=== PATIENT | male | born 1940 | race Two or more races ===

== ENCOUNTER → 2016-08-13 | Outpatient (CLI) | payer MEDICARE ==
--- NOTE | 2016-08-13 13:10 | FL ---
EXAMINATION TYPE: FL barium enema w air contrast DATE OF EXAM: 08/13/2016 12:42 PM COMPARISON: NONE HISTORY: Anemia TECHNIQUE: An air contrast barium enema study is performed. FINDINGS: Super[facility] view of the abdomen shows overall non-obstructive bowel gas pattern. No evidence of any mass or polyp, obstructing or constricting lesion throughout the colon. Mild sigmo id colon diverticulosis without diverticulitis. Normal-appearing appendix. Appendix was filled and appeared normal. The terminal ileum was refluxed and appears within normal l imits. IMPRESSION: No significant abnormality appreciated.
== END | disposition home or self-care (01) ==
LOC: RADFLMAIN 09:35
PROVIDERS: ATTEND Family Medicine
DX: D64.9 Anemia, unspecified (principal)
CPT/HCPCS: 74280

== ENCOUNTER → 2016-10-09 | Outpatient (CLI) | payer MEDICARE ==
[2016-10-09 09:23] LABS: Blood Urea Nitrogen 19 mg/dL (9-20); Non-African American GFR(MDRD) 55 (>60 ml/min/1.73 sqM)
--- NOTE | 2016-10-09 11:31 | CT ---
EXAMINATION TYPE: CT chest w con DATE OF EXAM: 10/09/2016 10:22 AM COMPARISON: Chest x-ray 09 January 2016 HISTORY: COPD with cough CT DLP: 774 mGycm Automated exposure control for dose reduction was used. CONTRAST: CT scan of the chest is performed with IV Contrast, patient injected with 80 mL of Visipaque 320. FINDINGS: LUNGS: Some patchy density is present in the right lower lobe of the costophrenic angle which is an i nterval finding. Nodular density at the left lower lobe posterior costophrenic sulcus measures approx imately 7 mm some groundglass opacity is present in the right lower lobe greater than left. Some limi davon bronchiectasis, bronchial wall thickening is also noted at the posterior lung bases. Emphysematou s changes are more noted at the upper lobes, there is some interlobular septal pleural thickening. No endobronchial lesion, pleural or pericardial effusion MEDIASTINUM: Ascending aorta measures approximately 4.2 cm. There are dense coronary artery calcifica tions. No adenopathy. Aortic calcification also present. AORTA: Atheromatous changes are present. Ascending aorta shows a more normal caliber. OTHER: Large cortical cyst associated with the right kidney measures 7 cm. Multiple cystic foci asso ciated with the liver scattered throughout, largest within the right lobe laterally measures 5 cm. Th ere may be 15-20 cysts within the liver. Nodularity is associated with the right adrenal gland measur ing only 8 to 9 mm. IMPRESSION: Indeterminate nodule left lower lobe, abnormal density the posterior costophrenic sulcus on the right may be postinflammatory changes, follow-up recommended, there are emphysematous changes , limited bronchiectasis, interstitial lung disease. Ascending aortic aneurysm. Coronary artery disea se. Additional findings above.
== END | disposition home or self-care (01) ==
LOC: RADCTMAIN 08:34
PROVIDERS: ATTEND Family Medicine
DX: J43.9 Emphysema, unspecified (principal); J47.9 Bronchiectasis, uncomplicated; J98.4 Other disorders of lung; R91.1 Solitary pulmonary nodule; I71.2 Thoracic aortic aneurysm, without rupture; I25.10 Atherosclerotic heart disease of native coronary artery without angina pectoris
CPT/HCPCS: 82565; 84520; 71260; 36415; Q9967

== ENCOUNTER 2016-11-24 20:50 | Inpatient (IN) | payer MEDICARE ==
[2016-11-24] MEDS ORDERED: SODIUM CHLORIDE 0.9% 1,000 ML IV STA ×2 (21:21)
[2016-11-24] MEDS ORDERED: ASPIRIN 81 MG CHEW PO STA (21:21)
[2016-11-24] MEDS ORDERED: RX INFO: IV CONTRAST WAS GIVEN 1 EACH MISC MISCELLANE PRN ×2 (21:23→22:25)
[2016-11-24] MEDS ORDERED: HEPARIN SODIUM,PORCINE 5,000 UNIT/ML 1 ML VIAL IV ONE (21:37)
[2016-11-24] MEDS ORDERED: HEPARIN SODIUM,PORCINE 5,000 UNIT/ML 1 ML VIAL IV PRN (21:37)
[2016-11-24] MEDS ORDERED: NITROGLYCERIN SL TABS 0.4 MG TAB SUBLINGUAL PRN (21:37)
[2016-11-24 21:42] LABS: ALT 22 U/L (21-72); AST 27 U/L (17-59); Alkaline Phosphatase 71 U/L (38-126); Anion Gap 17 mmol/L; Blood Urea Nitrogen 22 mg/dL (9-20); Calcium 9.1 mg/dL (8.4-10.2); Carbon Dioxide 14 mmol/L (22-30); Chloride 108 mmol/L (98-107); Glucose 172 mg/dL (74-99); Magnesium 1.9 mg/dL (1.6-2.3); Non-African American GFR(MDRD) >60 (>60 ml/min/1.73 sqM); Potassium 3.9 mmol/L (3.5-5.1); Sodium 139 mmol/L (137-145); Total Bilirubin 1.2 mg/dL (0.2-1.3); Total Protein 5.7 g/dL (6.3-8.2)
[2016-11-24 21:43] LABS: Anisocytosis Marked; CH 31.6; CHCM 28.4; HCT 20.5 % (39.0-53.0); HDW 4.97; Hypochromasia Marked; MCH 32.9 pg (25.0-35.0); MCHC 28.7 g/dL (31.0-37.0); MCV 114.6 fL (80.0-100.0); Macrocytosis Marked; Mean Platelet Volume 9.3; Poikilocytosis Marked; RBC 1.79 m/uL (4.30-5.90)
[2016-11-24 21:44] LABS: HGB 5.9 gm/dL (13.0-17.5); RDW 25.8 % (11.5-15.5)
[2016-11-24] MEDS ORDERED: HEPARIN SODIUM,PORCINE/D5W PMX 25,000 UNIT in DEXTROSE/WATER 1 500ML.BAG IV SCH (21:45)
[2016-11-24 21:48] LABS: INR 1.2 (<1.1); Prothrombin Time 12.1 sec (9.0-12.0)
[2016-11-24 21:54] LABS: Add Differential Manual Differential
[2016-11-24 21:59] LABS: Band Neutrophils % 1.5 %; Manual Review Performed; Nucleated Red Blood Cells 15 /100 WBC (0-0); Polychromasia Present; Total Cells Counted 200; WBC 11.1 k/uL (3.8-10.6)
--- NOTE | 2016-11-24 22:02 | XR ---
EXAMINATION TYPE: XR chest 1V portable DATE OF EXAM: 11/24/2016 9:47 PM COMPARISON: Chest x-ray January 09, 2016. CT chest February 08, 2017. HISTORY: Chest pain and shortness of breath TECHNIQUE: 2 AP portable upright views of the chest are obtained. FINDINGS: Underlying emphysematous change is present. There is increased opacity bilateral lung bases suspicious for atelectasis and/or mild interstitial edema. No suspicious focal consolidation or pneu mothorax is seen bilaterally. The cardiac silhouette size is within normal limits. The osseous stru ctures are intact. IMPRESSION: Moderate emphysematous change without suspicious acute infiltrate.
[2016-11-24 22:03] LABS: Partial Thromboplastin Time 18.9 sec (22.0-30.0)
[2016-11-24 22:07] LABS: Creatine Kinase MB 0.5 ng/mL (0.0-2.4); Troponin I 0.023 ng/mL (0.000-0.034)
--- NOTE | 2016-11-24 22:12 | P.CRDCN ---
History of Present Illness Consult date: 11/24/16 Chief complaint: SOB History of present illness: This is a pleasant 76year old male patient with known CAD and s/p stenting of the proximal LAD in December of 2015 as well as known occluded right coronary artery presented to the hospital complaining of shortness of breath. The patient stated that the shortness of breath started about 3 months ago and it has been progressing slowly. Earlier today he was experiencing in addition to the shortness of breath chest discomfort in the mid of the chest as a pressure on the chest. At that point he decided to call ambulance and come to the hospital. The EKG showed sinus tachycardia with mild ST segment elevation in aVR and diffuse ST segment depression. The hemoglobin came in to be around 6. The patient stated that he has been noticing some black stool over the last several months. Please note that the patient is on dual antiplatelet therapy with aspirin and Plavix. Currently the patient is pain-free but he is in mild respiratory distress and he is also tachypneic. Blood transfusion is in process to be initiated. Past Medical History Past Medical History: Hyperlipidemia, Hypertension, Rheumatoid Arthritis (RA) History of Any Multi-Drug Resistant Organisms: None Reported Past Surgical History: Heart Catheterization, Heart Catheterization With Stent, Tonsillectomy Additional Past Surgical History / Comment(s): Angioplasty 20 years ago Past Anesthesia/Blood Transfusion Reactions: No Reported Reaction Past Psychological History: No Psychological Hx Reported Smoking Status: Former smoker Past Alcohol Use History: None Reported Past Drug Use History: None Reported - Past Family History Mother Family Medical History: Myocardial Infarction ([place]) Medications and Allergies Home Medications Medication Instructions Recorded Confirmed Type Aspirin EC [Ecotrin Low Dose] 81 mg PO DAILY 01/09/16 11/24/16 History Ergocalciferol (Vitamin D2) 50,000 unit PO TH 01/09/16 11/24/16 History [Drisdol] Folic Acid 1 mg PO DAILY 01/09/16 11/24/16 History Montelukast [Singulair] 10 mg PO DAILY 01/09/16 11/24/16 History Multivitamins, Thera [Multivitamin 1 tab PO DAILY 01/09/16 11/24/16 History (formulary)] Albuterol Nebulized [Ventolin 2.5 mg INHALATION RT-QID 11/24/16 11/24/16 History Nebulized] Atorvastatin [Lipitor] 80 mg PO DAILY 11/24/16 11/24/16 History Ferrous Sulfate [Feosol] 325 mg PO DAILY 11/24/16 11/24/16 History Fluticasone/Vilanterol [Breo 1 puff INHALATION RT-DAILY 11/24/16 11/24/16 History Ellipta 100-25 Mcg Inhaler] Ipratropium Nebulized [Atrovent 0.5 mg INHALATION RT-QID 11/24/16 11/24/16 History Nebulized] Ipratropium-Albuterol Nebulize 3 ml INHALATION RT-QID 11/24/16 11/24/16 History [Duoneb 0.5 mg-3 mg/3 ml Soln] buPROPion SR [Wellbutrin Sr] 150 mg PO BID 11/24/16 11/24/16 History Allergies Allergy/AdvReac Type Severity Reaction Status Date / Time No Known Allergies Allergy Verified 11/24/16 21:28 Physical Exam Vitals: Vital Signs Temp Pulse Resp BP Pulse Ox 11/24/16 21:34 24 11/24/16 20:51 97.2 F L 120 H 26 H 107/55 89 L Intake and Output 11/24/16 11/24/16 11/24/16 06:59 14:59 22:59 Other: Weight 95.254 kg Patient Weight 11/25/16 06:59 Weight 95.254 kg - Constitutional General appearance: mild distress - Respiratory Respiratory: bilateral: diminished - Cardiovascular Rhythm: regular Results 11/24/16 21:05 11/24/16 21:05 Cardiac Enzymes 11/24/16 Range/Units 21:05 AST 27 (17-59) U/L Coagulation 11/24/16 Range/Units 21:05 PT 12.1 H (9.0-12.0) sec APTT 18.9 L (22.0-30.0) sec CBC 11/24/16 Range/Units 21:05 WBC 11.1 H (3.8-10.6) k/uL RBC 1.79 L (4.30-5.90) m/uL Hgb 5.9 L* (13.0-17.5) gm/dL Hct 20.5 L (39.0-53.0) % Plt Count 68 L (150-450) k/uL Comprehensive Metabolic Panel 11/24/16 Range/Units 21:05 Sodium 139 (137-145) mmol/L Potassium 3.9 (3.5-5.1) mmol/L Chloride 108 H (98-107) mmol/L Carbon Dioxide 14 L (22-30) mmol/L BUN 22 H (9-20) mg/dL Creatinine 1.08 (0.66-1.25) mg/dL Glucose 172 H (74-99) mg/dL Calcium 9.1 (8.4-10.2) mg/dL AST 27 (17-59) U/L ALT 22 (21-72) U/L Alkaline Phosphatase 71 (38-126) U/L Total Protein 5.7 L (6.3-8.2) g/dL Albumin 3.0 L (3.5-5.0) g/dL Current Medications Generic Name Dose Route Start Last Admin Trade Name Freq PRN Reason Stop Dose Admin Aspirin 325 mg 11/25/16 09:00 Aspirin PO DAILY IDALMIS Atorvastatin Calcium 80 mg 11/25/16 09:00 Lipitor PO DAILY IDALMIS Sodium Chloride 1,000 mls @ 999 mls/hr 11/24/16 21:21 11/24/16 21:45 Saline 0.9% IV 11/24/16 22:21 999 mls/hr .Q1H1M STA Administration Sodium Chloride 1,000 mls @ 100 mls/hr 11/24/16 21:21 Saline 0.9% IV 11/25/16 07:20 .Q10H STA Miscellaneous Information 1 each 11/24/16 21:23 Rx Info: Iv Contrast Was Given MISCELLANE 11/26/16 21:23 DAILY PRN Per Protocol Nitroglycerin 0.4 mg 11/24/16 21:37 Nitrostat SUBLINGUAL Q5M PRN Chest Pain Intake and Output 11/24/16 11/24/16 11/24/16 06:59 14:59 22:59 Other: Weight 95.254 kg Patient Weight 11/25/16 06:59 Weight 95.254 kg 11/24/16 21:05 11/24/16 21:05 Assessment and Plan Plan: Assessment #1 possible upper GI bleeding #2 anemia secondary to the above #3 acute respiratory failure #4 abnormal EKG #5 known CAD as described above Plan #1 blood transfusion #2 hold dual antiplatelet therapy #3 acute coronary syndrome to be ruled out #4 at echocardiogram was Doppler #5 follow-up with the patient
--- NOTE | 2016-11-24 23:05 | ED ---
General Adult HPI - General Chief complaint: Shortness of Breath Stated complaint: syncope Time Seen by Provider: 11/24/16 21:20 Source: patient, RN notes reviewed, old records reviewed Mode of arrival: EMS Limitations: no limitations - History of Present Illness Initial comments: This is a 76-year-old male to the ER for evaluation. This patient presents for evaluation of shortness of breath is been pain in his back. Patient has significant history of heart disease. Patient also complains of noting bloody stools lately, patient states and family states patient does look pale. Patient noticed not blood or black stools. Patient: no Blood thinners aside from Plavix. Patient states this chest pain is not like his prior heart attacks. Patient does not have cough or congestion, no fevers. He does complain of shortness of breath - Related Data Home Medications Medication Instructions Recorded Confirmed Aspirin EC [Ecotrin Low Dose] 81 mg PO DAILY 01/09/16 11/24/16 Ergocalciferol (Vitamin D2) 50,000 unit PO TH 01/09/16 11/24/16 [Drisdol] Folic Acid 1 mg PO DAILY 01/09/16 11/24/16 Montelukast [Singulair] 10 mg PO DAILY 01/09/16 11/24/16 Multivitamins, Thera [Multivitamin 1 tab PO DAILY 01/09/16 11/24/16 (formulary)] Albuterol Nebulized [Ventolin 2.5 mg INHALATION RT-QID 11/24/16 11/24/16 Nebulized] Atorvastatin [Lipitor] 80 mg PO DAILY 11/24/16 11/24/16 Ferrous Sulfate [Feosol] 325 mg PO DAILY 11/24/16 11/24/16 Fluticasone/Vilanterol [Breo 1 puff INHALATION RT-DAILY 11/24/16 11/24/16 Ellipta 100-25 Mcg Inhaler] Ipratropium Nebulized [Atrovent 0.5 mg INHALATION RT-QID 11/24/16 11/24/16 Nebulized] Ipratropium-Albuterol Nebulize 3 ml INHALATION RT-QID 11/24/16 11/24/16 [Duoneb 0.5 mg-3 mg/3 ml Soln] buPROPion SR [Wellbutrin Sr] 150 mg PO BID 11/24/16 11/24/16 Previous Rx's Medication Instructions Recorded Clopidogrel [Plavix] 75 mg PO DAILY #30 tab 01/13/16 Metoprolol Succinate (ER) [Toprol 25 mg PO DAILY #30 tab.er.24h 01/13/16 XL] Allergies Allergy/AdvReac Type Severity Reaction Status Date / Time No Known Allergies Allergy Verified 11/24/16 21:28 Review of Systems ROS Statement: Those systems with pertinent positive or pertinent negative responses have been documented in the HPI. ROS Other: All systems not noted in ROS Statement are negative. Past Medical History Past Medical History: Hyperlipidemia, Hypertension, Rheumatoid Arthritis (RA) History of Any Multi-Drug Resistant Organisms: None Reported Past Surgical History: Heart Catheterization, Heart Catheterization With Stent, Tonsillectomy Additional Past Surgical History / Comment(s): Angioplasty 20 years ago Past Anesthesia/Blood Transfusion Reactions: No Reported Reaction Past Psychological History: No Psychological Hx Reported Smoking Status: Former smoker Past Alcohol Use History: None Reported Past Drug Use History: None Reported - Past Family History Mother Family Medical History: Myocardial Infarction ([place]) General Exam Limitations: no limitations General appearance: alert, anxious, lethargic, in distress Head exam: Present: atraumatic, normocephalic, normal inspection Eye exam: Present: normal appearance, PERRL, EOMI. Absent: scleral icterus, conjunctival injection, periorbital swelling ENT exam: Present: mucous membranes dry Neck exam: Present: normal inspection. Absent: tenderness, meningismus, lymphadenopathy Respiratory exam: Present: normal lung sounds bilaterally, respiratory distress , accessory muscle use, decreased breath sounds, prolonged expiratory. Absent: wheezes, rales, rhonchi, stridor Cardiovascular Exam: Present: normal rhythm, tachycardia, normal heart sounds. Absent: systolic murmur, diastolic murmur, rubs, gallop, clicks GI/Abdominal exam: Present: soft, normal bowel sounds. Absent: distended, tenderness, guarding, rebound, rigid Extremities exam: Present: normal inspection, full ROM, normal capillary refill. Absent: tenderness, pedal edema, joint swelling, calf tenderness Back exam: Present: normal inspection Neurological exam: Present: alert, oriented X3, CN II-XII intact Psychiatric exam: Present: normal affect, normal mood Skin exam: Present: warm, dry, intact, normal color. Absent: rash Course Vital Signs 11/24/16 11/24/16 20:51 21:34 Temperature 97.2 F L Pulse Rate 120 H Respiratory 26 H 24 Rate Blood Pressure 107/55 O2 Sat by Pulse 89 L Oximetry - Reevaluation(s) Reevaluation #1: 11/24/16 23:07 Patient still remains or shortness of breath and chest pain pain in his back feels not like his prior heart attack Reevaluation #2: 11/24/16 23:07 Dr. Bernardo for cardiology was in emergency room did evaluate patient EKG Findings - EKG Comments: EKG Findings:: EKG shows sinus tachycardia rate 120, IL 236, QRS 88, QTC 534, minimal T-wave depression lateral leads. repeat. EKG shows sinus tachycardia rate 114, pO2 32, QRS 90, QTC 504, no change in morphology from first EKG Medical Decision Making - Medical Decision Making 70 formality ER for evaluation. Patient in for evaluation of shortness of breath pain in his back and not feeling well, symptom management is respiratory days back pain increasing over the past day and a half. Patient found to be severely anemic with hyperacute EKG changes, cardiology evaluate the patient in emergency room, no reason for her procedure at this time. Patient does have significant history of heart disease, patient will be given transfusion to help with anemia, placed on oxygen. CTa negative for PE, patient will be admitted for GI evaluation - Lab Data Result diagrams: 11/24/16 21:05 11/24/16 21:05 Lab Results 11/24/16 11/24/16 11/24/16 Range/Units 21:05 21:05 21:05 WBC 11.1 H (3.8-10.6) k/uL RBC 1.79 L (4.30-5.90) m/uL Hgb 5.9 L* (13.0-17.5) gm/dL Hct 20.5 L (39.0-53.0) % MCV 114.6 H (80.0-100.0) fL MCH 32.9 (25.0-35.0) pg MCHC 28.7 L (31.0-37.0) g/dL RDW 25.8 H (11.5-15.5) % Plt Count 68 L (150-450) k/uL Neutrophils % (Manual) 62.5 % Band Neutrophils % 1.5 % Lymphocytes % (Manual) 36.0 % Neutrophils # (Manual) 7.1 (1.3-7.7) k/uL Lymphocytes # (Manual) 4.0 (1.0-4.8) k/uL Nucleated RBCs 15 H (0-0) /100 WBC Manual Slide Review Performed Polychromasia Present Hypochromasia Marked Poikilocytosis Marked Anisocytosis Marked Macrocytosis Marked PT (9.0-12.0) sec INR (<1.1) APTT (22.0-30.0) sec D-Dimer (<0.60) mg/L FEU Sodium 139 (137-145) mmol/L Potassium 3.9 (3.5-5.1) mmol/L Chloride 108 H (98-107) mmol/L Carbon Dioxide 14 L (22-30) mmol/L Anion Gap 17 mmol/L BUN 22 H (9-20) mg/dL Creatinine 1.08 (0.66-1.25) mg/dL Est GFR (MDRD) Af Amer >60 (>60 ml/min/1.73 sqM) Est GFR (MDRD) Non-Af >60 (>60 ml/min/1.73 sqM) Glucose 172 H (74-99) mg/dL Calcium 9.1 (8.4-10.2) mg/dL Magnesium 1.9 (1.6-2.3) mg/dL Total Bilirubin 1.2 (0.2-1.3) mg/dL AST 27 (17-59) U/L ALT 22 (21-72) U/L Alkaline Phosphatase 71 (38-126) U/L Total Creatine Kinase 25 L (55-170) U/L CK-MB (CK-2) 0.5 (0.0-2.4) ng/mL CK-MB (CK-2) Rel Index 2.0 Troponin I 0.023 (0.000-0.034) ng/mL NT-Pro-B Natriuret Pep pg/mL Total Protein 5.7 L (6.3-8.2) g/dL Albumin 3.0 L (3.5-5.0) g/dL Lipase 117 (23-300) U/L Blood Type Blood Type Recheck Antibody Screen Crossmatch Spec Expiration Date 11/24/16 11/24/1611/24/17 Range/Units 21:05 21:05 21:05 WBC (3.8-10.6) k/uL RBC (4.30-5.90) m/uL Hgb (13.0-17.5) gm/dL Hct (39.0-53.0) % MCV (80.0-100.0) fL MCH (25.0-35.0) pg MCHC (31.0-37.0) g/dL RDW (11.5-15.5) % Plt Count (150-450) k/uL Neutrophils % (Manual) % Band Neutrophils % % Lymphocytes % (Manual) % Neutrophils # (Manual) (1.3-7.7) k/uL Lymphocytes # (Manual) (1.0-4.8) k/uL Nucleated RBCs (0-0) /100 WBC Manual Slide Review Polychromasia Hypochromasia Poikilocytosis Anisocytosis Macrocytosis PT 12.1 H (9.0-12.0) sec INR 1.2 (<1.1) APTT 18.9 L (22.0-30.0) sec D-Dimer 1.46 H (<0.60) mg/L FEU Sodium (137-145) mmol/L Potassium (3.5-5.1) mmol/L Chloride (98-107) mmol/L Carbon Dioxide (22-30) mmol/L Anion Gap mmol/L BUN (9-20) mg/dL Creatinine (0.66-1.25) mg/dL Est GFR (MDRD) Af Amer (>60 ml/min/1.73 sqM) Est GFR (MDRD) Non-Af (>60 ml/min/1.73 sqM) Glucose (74-99) mg/dL Calcium (8.4-10.2) mg/dL Magnesium (1.6-2.3) mg/dL Total Bilirubin (0.2-1.3) mg/dL AST (17-59) U/L ALT (21-72) U/L Alkaline Phosphatase (38-126) U/L Total Creatine Kinase (55-170) U/L CK-MB (CK-2) (0.0-2.4) ng/mL CK-MB (CK-2) Rel Index Troponin I (0.000-0.034) ng/mL NT-Pro-B Natriuret Pep 754 pg/mL Total Protein (6.3-8.2) g/dL Albumin (3.5-5.0) g/dL Lipase (23-300) U/L Blood Type A Positive Blood Type Recheck CABO Indicated Antibody Screen NEGATIVE Crossmatch See Detail Spec Expiration Date 11/27/2016 3979 - Radiology Data Radiology results: report reviewed (Chest x-ray negative for acute disease, CT negative for PE), image reviewed Critical Care Time Critical Care Time: Yes Total Critical Care Time: 65 Disposition Clinical Impression: Symptomatic anemia, Chest pain at rest, Non-STEMI (non-ST elevated myocardial infarction) Disposition: ADMITTED IP TO THIS [facility] Condition: Serious Referrals: Mariel Burnham DO [Primary Care Provider] - 1-2 days
--- NOTE | 2016-11-24 23:28 | CT ---
EXAM: CT Angiography Chest With Intravenous Contrast CLINICAL HISTORY: Reason: Pain TECHNIQUE: Axial computed tomographic angiography images of the chest with intravenous contrast using pulmonary embolism protocol. Coronal and sagittal reformats were obtained. CTDI is 11.30 MGy and DLP is 441.90 MGy-cm This CT exam was performed using one or more of the following dose reduction techniques: automated exposure control, adjustment of the mA and/or kV according to patient size, and/or use of iterative reconstruction technique. MIP reconstructed images were created and reviewed. COMPARISON: CT chest 10/09/16 FINDINGS: Pulmonary arteries: Unremarkable. No pulmonary embolism. Aorta: Stable fusiform aneurysmal dilatation of the ascending thoracic aorta, 42 cm in diameter. Lungs: Stable small subpleural ovoid density in the posterior right upper lobe (5/57), measuring 9 mm, possibly nodular scarring. Recommend comparison with more remote priors to ensure stability. Paraseptal and centrilobular emphysema. Bibasilar dependent opacities, likely atelectasis or scarring. No consolidation. Pleural space: No pleural effusion or pneumothorax. Heart: Calcified atheromatosis of the coronary arteries. No significant pericardial effusion. Bones/joints: No acute fracture. Lymph nodes: Unremarkable. No enlarged lymph nodes. Liver: Several hypodensities in the liver, some compatible with cysts and some too small to characterize. IMPRESSION: 1. No evidence of pulmonary embolism. 2. Stable fusiform aneurysm of the ascending thoracic aorta, 4.2 cm in diameter. 3. Centrilobular and paraseptal emphysema. 4. Stable small ovoid density in the posterior left upper lobe (5/57), measuring 9 mm, possibly nodular scarring. Recommend comparison with more remote priors. If no priors, three-month follow-up CT chest could be used to ensure stability.
[2016-11-25 00:59] LABS: Glucose,Whole Blood 118 mg/dL (75-99)
[2016-11-25 03:29] LABS: Anion Gap 7 mmol/L; Blood Urea Nitrogen 23 mg/dL (9-20); Calcium 8.4 mg/dL (8.4-10.2); Carbon Dioxide 20 mmol/L (22-30); Chloride 112 mmol/L (98-107); Cholesterol <50 mg/dL (<200); Glucose 104 mg/dL (74-99); HDL Cholesterol 13 mg/dL (40-60); Non-African American GFR(MDRD) >60 (>60 ml/min/1.73 sqM); Potassium 4.1 mmol/L (3.5-5.1); Sodium 139 mmol/L (137-145); Triglycerides 167 mg/dL (<150)
[2016-11-25 04:00] LABS: Creatine Kinase MB 2.1 ng/mL (0.0-2.4)
[2016-11-25 04:06] LABS: Troponin I 0.185 ng/mL (0.000-0.034)
[2016-11-25 07:19] LABS: Anisocytosis Marked; CH 32.5; CHCM 31.2; HCT 22.8 % (39.0-53.0); HDW 5.17; HGB 7.1 gm/dL (13.0-17.5); Hypochromasia Marked; Large Platelets Flag Slight; MCH 33.2 pg (25.0-35.0); MCHC 31.1 g/dL (31.0-37.0); Macrocytosis Marked; Mean Platelet Volume 10.5; Poikilocytosis Marked; RBC 2.13 m/uL (4.30-5.90); RDW 24.6 % (11.5-15.5); WBC (Perox) 4.95
[2016-11-25 07:22] LABS: MCV 106.9 fL (80.0-100.0)
[2016-11-25 08:41] LABS: Add Differential Manual Differential
[2016-11-25 09:03] LABS: Band Neutrophils % 0.5 %; Blast Cells 1.5; Metamyelocytes % 0.5 %; Nucleated Red Blood Cells 8 /100 WBC (0-0); Total Cells Counted 200
[2016-11-25 09:04] LABS: Manual Review Performed
[2016-11-25 09:05] LABS: Polychromasia Present
[2016-11-25 09:07] LABS: Large Platelets Present
[2016-11-25] MEDS: ATORVASTATIN 80 MG TAB PO SCH (09:28)
[2016-11-25] MEDS: SODIUM CHLORIDE 0.9% 1,000 ML IV SCH ×2 (09:31→19:33)
--- NOTE | 2016-11-25 10:11 | P.CONS ---
History of Present Illness - Reason for Consult Consult date: 11/25/16 GI bleed anemia Requesting physician: Cindy Cervantes - History of Present Illness 76-year-old gentleman patient of Dr. Burnham with a past medical history of CAD status post stenting of proximal LAD December 2015 maintained on dual antiplatelet therapy aspirin Plavix, hyperlipidemia, TX, hypertension, rheumatoid arthritis, and remote nicotine cigarette dependency. Consultation requested for GI bleed anemia. Patient admitted with profound weakness fatigue loss of appetite energy shortness of breath for the last several months but exacerbated over the last month. Patient states about 4 months after his cardiac stent was placed he was advised daily iron supplementation for a possible bowel bleed. He thinks this was because his hemoglobin has been slightly lower than normal since the beginning of the year but not requiring transfusions. No history of EGD colonoscopy. He has been noticing black colored bowel movements for at least a month maybe longer sometimes once a day not very often. Denies abdominal pain fever chills. No episodes of gross hematemesis or hematochezia. No history of GI bleeding. Approximate 8 kg unintentional weight loss since December 2015. No NSAIDs or alcohol history. Admission hemoglobin 5.9. MCV 114. Platelet 68. White count 11.1. INR 1.2. BUN 22. Creatinine 1.0. Troponin 0.185. EKG reported sinus tachycardia with mild ST segment elevation and aVR and diffuse ST segment depression currently being evaluated by cardiology. Upon review of medical records hemoglobin has averaged between 10-11 range over the last year. MCV 90 range. According to the nursing staff there is questionable history if the patient has been advised to see a local buzzle buffer. No history of blood dyscrasias or malignancy. Barium enema study in July 2016 or evaluation of anemia reported no significant abnormality. Mild sigmoid colonic diverticulosis was seen with normal-appearing appendix. He has received 2 units of blood and is scheduled to receive platelet transfusion today. Platelets decreased to 32,000 today. Hemoglobin is 7.1. ET chest no evidence of PE. 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 Emphysema. Small stable ovoid density in the posterior left upper lobe 9 mm. Review of Systems Constitutional: Denies fever, chills, sweats, weight gain, or loss. HEENT: Negative for migraines, blurred vision or loss, earaches, drainage, tinnitus, oral mucosal lesions, dysphagia, or odynophagia. Cardiac: CAD. PCI stent. Hyperlipidemia. Hypertension. TX. Rheumatoid arthritis. Negative for chest pain, arrhythmias, or palpitation. Respiratory: Negative for shortness of breath, hemoptysis, cough, or sputum production. Gastrointestinal: See HPI for pertinent findings. Genitourinary: Negative for hematuria, urgency, frequency, polyuria, dysuria, or penile discharge. Musculoskeletal: Negative for muscle aches, swelling, arthritis, and arthralgias. Neurologic: Negative for stroke or TIA. Endocrine: Negative for thyroid problems. Skin: Negative for rash or itching. Psychiatric: Negative history for depression and anxiety All systems: negative (See HPI) Past Medical History Past Medical History: Hyperlipidemia, Hypertension, Myocardial Infarction (TX), Rheumatoid Arthritis (RA) Last Myocardial Infarction Date:: 1995 History of Any Multi-Drug Resistant Organisms: None Reported Past Surgical History: Heart Catheterization, Heart Catheterization With Stent, Tonsillectomy Additional Past Surgical History / Comment(s): Angioplasty 20 years ago Past Anesthesia/Blood Transfusion Reactions: No Reported Reaction Date of Last Stent Placement:: 2015 Past Psychological History: No Psychological Hx Reported Smoking Status: Former smoker Past Alcohol Use History: None Reported Past Drug Use History: None Reported - Past Family History Mother Family Medical History: Myocardial Infarction (TX) Medications and Allergies Home Medications Medication Instructions Recorded Confirmed Type Aspirin EC [Ecotrin Low Dose] 81 mg PO DAILY 01/09/16 11/24/16 History Ergocalciferol (Vitamin D2) 50,000 unit PO TH 01/09/16 11/24/16 History [Drisdol] Folic Acid 1 mg PO DAILY 01/09/16 11/24/16 History Montelukast [Singulair] 10 mg PO DAILY 01/09/16 11/24/16 History Multivitamins, Thera [Multivitamin 1 tab PO DAILY 01/09/16 11/24/16 History (formulary)] Albuterol Nebulized [Ventolin 2.5 mg INHALATION RT-QID 11/24/16 11/24/16 History Nebulized] Atorvastatin [Lipitor] 80 mg PO DAILY 11/24/16 11/24/16 History Ferrous Sulfate [Feosol] 325 mg PO DAILY 11/24/16 11/24/16 History Fluticasone/Vilanterol [Breo 1 puff INHALATION RT-DAILY 11/24/16 11/24/16 History Ellipta 100-25 Mcg Inhaler] Ipratropium Nebulized [Atrovent 0.5 mg INHALATION RT-QID 11/24/16 11/24/16 History Nebulized] Ipratropium-Albuterol Nebulize 3 ml INHALATION RT-QID 11/24/16 11/24/16 History [Duoneb 0.5 mg-3 mg/3 ml Soln] buPROPion SR [Wellbutrin Sr] 150 mg PO BID 11/24/16 11/24/16 History Allergies Allergy/AdvReac Type Severity Reaction Status Date / Time No Known Allergies Allergy Verified 11/24/16 21:28 Physical Exam Vitals: Vital Signs Temp Pulse Pulse Resp BP BP Pulse Ox 11/25/16 09:40 97.5 F L 82 22 92/47 99 11/25/16 09:30 78 19 92/47 100 11/25/16 09:22 97.8 F 76 21 84/48 99 11/25/16 09:20 79 22 73/42 11/25/16 09:10 78 26 H 99/61 96 11/25/16 09:00 80 18 99/61 96 11/25/16 08:50 97.5 F L 84 22 99/61 93 L 11/25/16 08:40 76 20 99/61 96 11/25/16 08:30 71 14 99/61 98 11/25/16 08:20 78 13 99/61 100 11/25/16 08:10 70 13 99/61 98 11/25/16 08:00 72 101 H 13 111/60 96 11/25/16 07:50 66 15 111/60 95 11/25/16 07:40 73 15 111/60 93 L 11/25/16 07:30 71 13 111/60 89 L 11/25/16 07:20 73 12 111/60 95 11/25/16 07:10 77 15 111/60 99 11/25/16 07:00 76 16 100/53 99 11/25/16 06:50 79 14 100/53 99 11/25/16 06:40 75 18 100/53 100 11/25/16 06:30 76 13 100/53 97 11/25/16 06:20 76 19 100/53 97 11/25/16 06:10 77 16 100/53 97 11/25/16 06:00 75 13 97/57 98 11/25/16 05:50 80 21 97/57 96 11/25/16 05:47 97.7 F 77 13 97/57 96 11/25/16 05:46 97.5 F L 79 20 73/42 99 11/25/16 05:40 76 13 105/58 96 11/25/16 05:30 77 13 105/58 95 11/25/16 05:20 79 13 105/58 95 11/25/16 05:10 84 17 105/58 85 L 11/25/16 05:00 83 24 91/52 95 11/25/16 04:50 82 24 91/52 95 11/25/16 04:40 83 16 91/52 96 11/25/16 04:30 84 14 91/52 95 11/25/16 04:20 85 24 91/52 96 11/25/16 04:10 84 23 91/52 98 11/25/16 04:00 98.0 F 88 101 H 18 96/56 97 11/25/16 03:59 98.0 F 85 17 91/52 96 11/25/16 03:50 86 17 96/56 95 03 03:40 92 20 96/56 96 11/25/16 03:30 97.7 F 88 17 89/51 95 03 03:20 91 14 89/51 97 11/25/16 03:10 91 16 89/51 94 L 11/25/16 03:00 90 15 95/57 95 11/25/16 02:59 97.5 F L 92 15 95/57 95 11/25/16 02:58 97.7 F 89 19 96/56 98 0317 02:50 93 17 95/57 93 L 0317 02:40 93 18 95/57 93 L 17 02:30 95 20 95/57 90 L 03/17 02:20 94 15 95/57 96 0317 02:10 96 17 95/57 95 11/25/16 02:00 99 25 H 96/56 94 L 17 01:50 103 H 32 H 96/56 93 L 17 01:47 101 H 20 11/25/16 01:40 99 26 H 96/56 96 11/25/16 01:30 103 H 25 H 96/56 94 L 11/25/16 01:20 104 H 25 H 96/56 95 11/25/16 01:10 98.2 F 105 H 22 96/56 98 11/25/16 00:27 99.3 F 105 H 20 95/56 11/24/16 23:57 99.1 F 105 H 20 89/49 11/24/16 23:47 99.1 F 107 H 20 95/52 93 L 11/24/16 23:42 98.2 F 101 H 24 96/56 98 11/24/16 23:37 100.1 F H 109 H 16 108/56 11/24/16 22:51 108 H 20 111/59 100 11/24/16 21:51 114 H 20 121/67 94 L Intake and Output 11/24/16 11/25/16 11/25/16 22:59 06:59 14:59 Intake Total 2990 565 Output Total 250 0 Balance 2740 565 Intake: IV 460 325 Sodium Chloride 0.9% 1, 460 200 000 ml @ 100 mls/hr IV . Q10H STA Rx#:[id number] platelets at 125 ml/hr 125 Amount of Fluid Infused ( 1300 ml) Oral 240 Blood Product 1230 0 Platelet Pheresis Acda2 0 Unit [id number] As-1 Unit 310 [id number] Rc As-3 Unit 310 [id number] Output: Urine 250 0 Other: Weight 97.9 kg 97.9 kg Patient Weight 11/26/16 06:59 Weight 97.9 kg General appearance: The patient is alert, oriented, in no acute distress. Appears pale HET: Head is normocephalic and atraumatic. Pupils are equal and reactive. Oropharynx is clear without lesions. Neck: Supple without lymphadenopathy. Trachea midline. Heart: S1 S2. Regular rate and rhythm. Lungs: No crackles or wheezes are heard. Abdomen: Soft, nontender, nondistended with bowel sounds. No peritoneal signs. No palpable organomegaly or masses. Extremities: Normal skin color and turgor. No cyanosis, rash, ulceration, clubbing, or edema. Radial and pedal pulses are 2/4 bilaterally. Neurological: No focal deficits. Strength and sensation are grossly intact. Results CBC & Chem 7: 11/25/16 06:21 11/25/16 03:13 Labs: Abnormal Lab Results - Last 24 Hours (Table) 11/25/16 11/25/16 11/25/16 Range/Units 00:58 03:09 03:13 RBC (4.30-5.90) m/uL Hgb (13.0-17.5) gm/dL Hct (39.0-53.0) % MCV (80.0-100.0) fL RDW (11.5-15.5) % Plt Count (150-450) k/uL Chloride (98-107) mmol/L Carbon Dioxide (22-30) mmol/L BUN (9-20) mg/dL Glucose (74-99) mg/dL POC Glucose (mg/dL) 118 H (75-99) mg/dL Total Creatine Kinase 39 L (55-170) U/L Troponin I 0.185 H* (0.000-0.034) ng/mL Triglycerides 167 H (<150) mg/dL HDL Cholesterol 13 L (40-60) mg/dL 11/25/16 11/25/16 Range/Units 03:13 06:21 RBC 2.13 L (4.30-5.90) m/uL Hgb 7.1 L (13.0-17.5) gm/dL Hct 22.8 L (39.0-53.0) % MCV 106.9 H D (80.0-100.0) fL RDW 24.6 H (11.5-15.5) % Plt Count 32 L* D (150-450) k/uL Chloride 112 H (98-107) mmol/L Carbon Dioxide 20 L (22-30) mmol/L BUN 23 H (9-20) mg/dL Glucose 104 H (74-99) mg/dL POC Glucose (mg/dL) (75-99) mg/dL Total Creatine Kinase (55-170) U/L Troponin I (0.000-0.034) ng/mL Triglycerides (<150) mg/dL HDL Cholesterol (40-60) mg/dL Comments: Barium enema report July [address] Farrell. CTA chest report reviewed by Dr. Farrell. Assessment and Plan (1) Symptomatic anemia Narrative/Plan: 76-year-old gentleman presents with symptomatic anemia shortness of breath weakness decreased appetite and weight loss for several months exacerbated over the last month suggestive of acute blood loss with black colored bowel movements for at least 1 month duration with significant drop in hemoglobin. Suspect acute on chronic GI bleed maintained on iron supplementation for several months. Status: Acute (2) Thrombocytopenia Narrative/Plan: Etiology unclear consultation for hematology requested. Status: Acute (3) Acute blood loss anemia Status: Acute (4) GI bleed Narrative/Plan: Suspected GI bleed with black colored bowel movements suggestive of upper source possible lower or combination of both. Black colored bowel movements could be secondary to possible peptic ulcer disease possible diverticular blood loss however underlying malignancy cannot be entirely excluded. Status: Acute (5) Elevated troponin Narrative/Plan: Suspect mixed match currently being evaluated by cardiology. History of coronary artery disease with PCI stent on dual antiplatelet therapy prior to admission. Status: Acute (6) Macrocytosis Status: Acute (7) Colon, diverticulosis Narrative/Plan: Per barium enema study Status: Chronic Plan: 1. Platelet transfusion today with repeat CBC this afternoon. Repeat CBC in a.m. unless patient manifests active bleeding then recommend CBC every 6 hours. Patient was advised to proceed with EGD colonoscopy on Wednesday after review of morning chemistries. Patient may require platelet transfusion prior to endoscopy pending clinical course. 2. Hematology evaluation prior to endoscopy. We'll defer to hematology for additional workup of anemia. 3. Light diet as tolerated. Continuance of aspirin and Plavix to be determined by cardiology and medicine. 4. Hemoccult stool testing requested. 5. GI prophylaxis Protonix 40 mg IV daily. 6. Hold iron supplementation for now until endoscopy is completed. The supervisor force adjustment has discussed the risks, benefits and alternative therapies for the above-mentioned procedure and for both sedation/analgesia as well as necessary blood product administration, if indicated, as they pertain to this patient. The patient has indicated understanding and acceptance of the risks and procedures discussed. Thank you for this kind referral and the opportunity to participate in the care of your patient. This consultation was discussed with Dr. Farrell. The impression and plan of care have been directed as dictated.
[2016-11-25 10:32] LABS: Troponin I 0.794 ng/mL (0.000-0.034)
[2016-11-25] MEDS: PANTOPRAZOLE 40 MG/10 ML VIAL IVP SCH (12:08)
[2016-11-25] MEDS: ASPIRIN 325 MG TAB PO SCH (12:24)
--- NOTE | 2016-11-25 12:38 | P.PN ---
Subjective Principal diagnosis: Severe anemia/acute coronary event This is a pleasant 76year old male patient with known CAD and s/p stenting of the proximal LAD in December of 2015 as well as known occluded right coronary artery presented to the hospital complaining of shortness of breath. The patient stated that the shortness of breath started about 3 months ago and it has been progressing slowly. Earlier today he was experiencing in addition to the shortness of breath chest discomfort in the mid of the chest as a pressure on the chest. At that point he decided to call ambulance and come to the hospital. The EKG showed sinus tachycardia with mild ST segment elevation in aVR and diffuse ST segment depression. The hemoglobin came in to be around 6. The patient stated that he has been noticing some black stool over the last several months. Please note that the patient is on dual antiplatelet therapy with aspirin and Plavix. On follow-up with the patient today, he is feeling better. The shortness of breath is much better. The heart rate has improved as well as. The hemoglobin is above 7 after 3 units of packed RBC. He was on aspirin and Plavix and the Plavix was stopped. GI consult has placed and the patient is in process to have endoscopy. Objective - Vital Signs Vital signs: Vital Signs Temp 97.7 F 11/25/16 12:18 Pulse 78 11/25/16 12:18 Resp 20 11/25/16 12:18 BP 84/50 11/25/16 12:18 Pulse Ox 99 11/25/16 12:18 Intake & Output 11/24/16 11/25/16 11/25/16 18:59 06:59 18:59 Intake Total 2990 1406 Output Total 250 300 Balance 2740 1106 Weight 97.9 kg 97.9 kg Intake: IV 460 875 Sodium Chloride 0.9% 1, 460 500 000 ml @ 100 mls/hr IV . Q10H STA Rx#:[id number] platelets at 125 ml/hr 375 Amount of Fluid Infused ( 1300 ml) Oral 240 Blood Product 1230 291 Platelet Pheresis Acda2 291 Unit [id number] Rc As-1 Unit 310 [id number] Rc As-3 Unit 310 [id number] Rc As-3 Unit 0 [id number] Output: Urine 250 300 - Constitutional General appearance: Present: no acute distress - Respiratory Respiratory: bilateral: CTA - Cardiovascular Rhythm: regular Heart sounds: normal: S1, S2 - Labs CBC & Chem 7: 11/25/16 06:21 11/25/16 03:13 Labs: Abnormal Lab Results - Last 24 Hours (Table) 11/25/16 11/25/16 11/25/16 Range/Units 00:58 03:09 03:13 RBC (4.30-5.90) m/uL Hgb (13.0-17.5) gm/dL Hct (39.0-53.0) % MCV (80.0-100.0) fL RDW (11.5-15.5) % Plt Count (150-450) k/uL Chloride (98-107) mmol/L Carbon Dioxide (22-30) mmol/L BUN (9-20) mg/dL Glucose (74-99) mg/dL POC Glucose (mg/dL) 118 H (75-99) mg/dL Total Creatine Kinase 39 L (55-170) U/L CK-MB (CK-2) (0.0-2.4) ng/mL Troponin I 0.185 H* (0.000-0.034) ng/mL Triglycerides 167 H (<150) mg/dL HDL Cholesterol 13 L (40-60) mg/dL 11/25/16 11/25/16 11/25/16 Range/Units 03:13 06:21 09:30 RBC 2.13 L (4.30-5.90) m/uL Hgb 7.1 L (13.0-17.5) gm/dL Hct 22.8 L (39.0-53.0) % MCV 106.9 H D (80.0-100.0) fL RDW 24.6 H (11.5-15.5) % Plt Count 32 L* D (150-450) k/uL Chloride 112 H (98-107) mmol/L Carbon Dioxide 20 L (22-30) mmol/L BUN 23 H (9-20) mg/dL Glucose 104 H (74-99) mg/dL POC Glucose (mg/dL) (75-99) mg/dL Total Creatine Kinase (55-170) U/L CK-MB (CK-2) 5.0 H* (0.0-2.4) ng/mL Troponin I 0.794 H* (0.000-0.034) ng/mL Triglycerides (<150) mg/dL HDL Cholesterol (40-60) mg/dL Assessment and Plan Plan: Assessment #1 possible upper GI bleeding #2 anemia secondary to the above #3 acute respiratory failure #4 abnormal EKG #5 known CAD as described above Plan #1 continue monitoring the hemoglobin #2 continue holding the Plavix #3 acute coronary syndrome to be ruled out #4 at echocardiogram was Doppler #5 follow-up with the patient
--- NOTE | 2016-11-25 13:55 | P.CNPUL ---
History of Present Illness Consult date: 11/25/16 Reason for consult: dyspnea, other (ICU management) Chief complaint: SOB History of present illness: 76 year old male presented to the ED complaining of shortness of breath that has been ongoing for several weeks. The patient states that it worsened over the past few days. The patient states that he has had dark tarry stools for about 6 weeks. He states his primary care physician was monitoring his hemoglobin which was slowly dropping over time. He was supposed to follow up with Dr. Sorto in the office this week. The patient states that he is a former smoker he quit one year ago. He used to smoke 1 pack per day for 45 years. He states he has never been diagnosed with asthma or COPD. However he was put on Briel and in [place] outpatient. The patient developed thrush and stopped using his inhalers. The patient also has known coronary artery disease and had stenting of the LAD in 2015. The patient does not wear oxygen at home. He is complaining of some lower abdominal pain. He denies any nausea or vomiting. He states he does take iron at home and was taking 2 tablets daily. However due to constipation he cut down to one tablet daily. In the emergency department the patient was found to have symptomatic anemia. He was given 2 units of packed red blood cells. Today in the ICU the patient continues to be hypotensive. He is also found to have thrombocytopenia. The patient is being transfused 1 unit of packed red blood cells as well as 1 pack of platelets. Review of Systems All systems: negative Past Medical History Past Medical History: Hyperlipidemia, Hypertension, Myocardial Infarction ([place]), Rheumatoid Arthritis ([place]) Last Myocardial Infarction Date:: 1995 History of Any Multi-Drug Resistant Organisms: None Reported Past Surgical History: Heart Catheterization, Heart Catheterization With Stent, Tonsillectomy Additional Past Surgical History / Comment(s): Angioplasty 20 years ago Past Anesthesia/Blood Transfusion Reactions: No Reported Reaction Date of Last Stent Placement:: 2015 Past Psychological History: No Psychological Hx Reported Smoking Status: Former smoker Past Alcohol Use History: None Reported Past Drug Use History: None Reported - Past Family History Mother Family Medical History: Myocardial Infarction ([place]) Medications and Allergies Home Medications Medication Instructions Recorded Confirmed Type Aspirin EC [Ecotrin Low Dose] 81 mg PO DAILY 01/09/16 11/24/16 History Ergocalciferol (Vitamin D2) 50,000 unit PO TH 01/09/16 11/24/16 History [Drisdol] Folic Acid 1 mg PO DAILY 01/09/16 11/24/16 History Montelukast [Singulair] 10 mg PO DAILY 01/09/16 11/24/16 History Multivitamins, Thera [Multivitamin 1 tab PO DAILY 01/09/16 11/24/16 History (formulary)] Albuterol Nebulized [Ventolin 2.5 mg INHALATION RT-QID 11/24/16 11/24/16 History Nebulized] Atorvastatin [Lipitor] 80 mg PO DAILY 11/24/16 11/24/16 History Ferrous Sulfate [Feosol] 325 mg PO DAILY 11/24/16 11/24/16 History Fluticasone/Vilanterol [Breo 1 puff INHALATION RT-DAILY 11/24/16 11/24/16 History Ellipta 100-25 Mcg Inhaler] Ipratropium Nebulized [Atrovent 0.5 mg INHALATION RT-QID 11/24/16 11/24/16 History Nebulized] Ipratropium-Albuterol Nebulize 3 ml INHALATION RT-QID 11/24/16 11/24/16 History [Duoneb 0.5 mg-3 mg/3 ml Soln] buPROPion SR [Wellbutrin Sr] 150 mg PO BID 11/24/16 11/24/16 History Allergies Allergy/AdvReac Type Severity Reaction Status Date / Time No Known Allergies Allergy Verified 11/24/16 21:28 Physical Exam Osteopathic Statement: *. No significant issues noted on an osteopathic structural exam other than those noted in the History and Physical/Consult. Vitals: Vital Signs Temp Pulse Pulse Resp BP BP Pulse Ox 11/25/16 13:20 79 31 H 100/59 98 11/25/16 13:10 87 16 82/57 99 11/25/16 13:00 74 19 90/56 98 11/25/16 12:50 81 27 H 84/52 99 11/25/16 12:40 56 L 15 93/46 91 L 11/25/16 12:39 97.4 F L 71 20 93/46 99 11/25/16 12:30 77 16 84/50 99 11/25/16 12:29 85 24 84/50 98 11/25/16 12:18 97.7 F 78 20 84/50 99 11/25/16 12:10 84 23 98/56 99 11/25/16 12:07 97.4 F L 80 20 98/56 99 11/25/16 12:06 97.4 F L 80 22 98/56 11/25/16 12:00 97.4 F L 70 101 H 18 98/56 95 11/25/16 11:50 84 13 98/56 97 11/25/16 11:40 80 31 H 98/56 99 11/25/16 11:30 75 21 98/56 99 11/25/16 11:20 97.6 F 75 20 82/54 97 11/25/16 11:10 79 82/54 98 11/25/16 11:00 81 82/54 96 11/25/16 10:50 73 84/50 98 11/25/16 10:40 86 84/50 97 11/25/16 10:30 73 84/50 99 11/25/16 10:20 77 84/50 98 11/25/16 10:10 77 84/50 100 11/25/16 10:07 77 84/50 100 11/25/16 09:50 77 20 84/50 99 11/25/16 09:40 97.5 F L 57 L 17 92/47 100 11/25/16 09:30 78 19 92/47 100 11/25/16 09:22 97.8 F 76 21 84/48 99 11/25/16 09:20 79 22 73/42 11/25/16 09:10 78 26 H 99/61 96 11/25/16 09:00 80 18 99/61 96 11/25/16 08:50 97.5 F L 84 22 99/61 93 L 11/25/16 08:40 76 20 99/61 96 11/25/16 08:30 71 14 99/61 98 11/25/16 08:20 78 13 99/61 100 11/25/16 08:10 70 13 99/61 98 11/25/16 08:00 72 101 H 13 111/60 96 11/25/16 07:50 66 15 111/60 95 03 07:40 73 15 111/60 93 L 11/25/16 07:30 71 13 111/60 89 L 11/25/16 07:20 73 12 111/60 95 05/03/17 07:10 77 15 111/60 99 05/03/17 07:00 76 16 100/53 99 05/03/17 06:50 79 14 100/53 99 05/03/17 06:40 75 18 100/53 100 05/03/17 06:30 76 13 100/53 97 05/03/17 06:20 76 19 100/53 97 05/03/17 06:10 77 16 100/53 97 05/03/17 06:00 75 13 97/57 98 05/03/17 05:50 80 21 97/57 96 05/03/17 05:47 97.7 F 77 13 97/57 96 05/03/17 05:46 97.5 F L 79 20 73/42 99 05/03/17 05:40 76 13 105/58 96 05/03/17 05:30 77 13 105/58 95 05/03/17 05:20 79 13 105/58 95 05/03/17 05:10 84 17 105/58 85 L 05/03/17 05:00 83 24 91/52 95 05/03/17 04:50 82 24 91/52 95 05/03/17 04:40 83 16 91/52 96 05/03/17 04:30 84 14 91/52 95 05/03/17 04:20 85 24 91/52 96 05/03/17 04:10 84 23 91/52 98 05/03/17 04:00 98.0 F 88 101 H 18 96/56 97 05/03/17 03:59 98.0 F 85 17 91/52 96 05/03/17 03:50 86 17 96/56 95 05/03/17 03:40 92 20 96/56 96 05/03/17 03:30 97.7 F 88 17 89/51 95 05/03/17 03:20 91 14 89/51 97 05/03/17 03:10 91 16 89/51 94 L 05/03/17 03:00 90 15 95/57 95 05/03/17 02:59 97.5 F L 92 15 95/57 95 05/03/17 02:58 97.7 F 89 19 96/56 98 05/03/17 02:50 93 17 95/57 93 L 05/03/17 02:40 93 18 95/57 93 L 05/03/17 02:30 95 20 95/57 90 L 11/25/16 02:20 94 15 95/57 96 11/25/16 02:10 96 17 95/57 95 11/25/16 02:00 99 25 H 96/56 94 L 11/25/16 01:50 103 H 32 H 96/56 93 L 11/25/16 01:47 101 H 20 11/25/16 01:40 99 26 H 96/56 96 11/25/16 01:30 103 H 25 H 96/56 94 L 11/25/16 01:20 104 H 25 H 96/56 95 11/25/16 01:10 98.2 F 105 H 22 96/56 98 11/25/16 00:27 99.3 F 105 H 20 95/56 11/24/16 23:57 99.1 F 105 H 20 89/49 11/24/16 23:47 99.1 F 107 H 20 95/52 93 L 11/24/16 23:42 98.2 F 101 H 24 96/56 98 11/24/16 23:37 100.1 F H 109 H 16 108/56 11/24/16 22:51 108 H 20 111/59 100 11/24/16 21:51 114 H 20 121/67 94 L Intake and Output 11/24/16 11/25/16 11/25/16 22:59 06:59 14:59 Intake Total 2990 1656 Output Total 250 300 Balance 2740 1356 Intake: IV 460 1125 PRBC at 150 ml/hr 150 Sodium Chloride 0.9% 1, 460 600 000 ml @ 100 mls/hr IV . Q10H STA Rx#:[id number] platelets at 125 ml/hr 375 Amount of Fluid Infused ( 1300 ml) Oral 240 Blood Product 1230 291 Platelet Pheresis Acda2 291 Unit [id number] Rc As-1 Unit 310 [id number] Rc As-3 Unit 310 [id number] Rc As-3 Unit 0 [id number] Output: Urine 250 300 Other: Weight 97.9 kg 97.9 kg Patient Weight 11/26/16 06:59 Weight 97.9 kg Gen: A+Ox3, NAD CV: RRR, s1/s2 Lungs: Diminished with scattered wheezing Abd: soft, NT/ND, +BS Ext: no edema Results - Laboratory Findings CBC and BMP: 11/25/16 06:21 11/25/16 03:13 PT/INR, D-dimer PT 12.1 sec (9.0-12.0) H 11/24/16 21:05 INR 1.2 (<1.1) 11/24/16 21:05 D-Dimer 1.46 mg/L FEU (<0.60) H 11/24/16 21:05 Abnormal lab findings: Abnormal Labs 11/25/16 11/25/16 11/25/16 00:58 03:09 03:13 RBC Hgb Hct MCV RDW Plt Count Nucleated RBCs Chloride Carbon Dioxide BUN Glucose POC Glucose (mg/dL) 118 H Total Creatine Kinase 39 L CK-MB (CK-2) Troponin I 0.185 H* Triglycerides 167 H HDL Cholesterol 13 L 11/25/16 11/25/16 11/25/16 03:13 06:21 09:30 RBC 2.13 L Hgb 7.1 L Hct 22.8 L MCV 106.9 H D RDW 24.6 H Plt Count 32 L* D Nucleated RBCs 8 H Chloride 112 H Carbon Dioxide 20 L BUN 23 H Glucose 104 H POC Glucose (mg/dL) Total Creatine Kinase CK-MB (CK-2) 5.0 H* Troponin I 0.794 H* Triglycerides HDL Cholesterol - Diagnostic Findings Chest x-ray: report reviewed, image reviewed CT scan - chest: report reviewed, image reviewed Assessment and Plan Plan: Acute hypoxic respiratory failure AECOPD Symptomatic anemia, acute blood loss Hypovolemic shock Emphysema Hx tobacco abuse Severe thrombocytopenia ASHA 9 mm nodule Suspect lower GIB Elevated troponin with hx CAD and LAD PCI NAGMA Dylipidemia O2 to maintain sat > or = to 88% Bronchodilators Pulmicort No steroids at this time due to GIB Transfuse 1 unit PRBC and 1 pack PLT today GI and cardio recs CT in 3 months to follow pulmonary nodule Smoking cessation recommended Continue IVF No anticoagulation at this time SCDs for DVT prophylaxis Consult hematology Monitor H/H GI prophylaxis Plan for possible endoscopy on Wednesday Thank you for this consultation. We will continue to follow along.
[2016-11-25] MEDS: IPRATROPIUM-ALBUTEROL 3 ML NEB INHALATION SCH ×2 (16:07→19:27)
[2016-11-25 16:29] LABS: Anisocytosis Moderate; CH 32.5; CHCM 32.2; HCT 25.9 % (39.0-53.0); HDW 5.08; HGB 8.1 gm/dL (13.0-17.5); Hypochromasia Marked; MCH 32.4 pg (25.0-35.0); MCHC 31.3 g/dL (31.0-37.0); MCV 103.7 fL (80.0-100.0); Macrocytosis Marked; Mean Platelet Volume 9.8; Poikilocytosis Marked; RDW 23.6 % (11.5-15.5); WBC (Perox) 4.61
[2016-11-25 17:01] LABS: Add Differential Manual Differential
[2016-11-25 17:13] LABS: Nucleated Red Blood Cells 4 /100 WBC (0-0)
[2016-11-25 17:14] LABS: Polychromasia Present; Stomatocytes Present; Total Cells Counted 200; WBC 4.2 k/uL (3.8-10.6)
--- NOTE | 2016-11-25 17:24 | P.HPIM ---
History of Present Illness H&P Date: 11/25/16 Chief Complaint: Worsening shortness of breath Patient is a 76-year-old male with multiple medical problems who presented to [facility] due to worsening shortness of breath he states he was able to walk on the 5 or 6 steps before he had to sit down due to severe shortness of breath, he had 1 episode of chest discomfort. Patient was also having black stools, he has been followed by Dr. Mariel Burnham, he had evidence of anemia and low platelet counts he was referred to Dr. Sorto, who saw him once as outpatient. Patient also has known history of coronary artery disease and had previous angioplasty with stent placement he is maintained on aspirin and Plavix as outpatient. Hemoglobin on presentation was down to 5.9, patient was admitted to intensive care unit, red blood cell transfusion was requested Consultation for gastroenterology, critical care, cardiology and hematology were initiated. Past Medical History Past Medical History: Hyperlipidemia, Hypertension, Myocardial Infarction ([place]), Rheumatoid Arthritis ([place]) Last Myocardial Infarction Date:: 1995 History of Any Multi-Drug Resistant Organisms: None Reported Past Surgical History: Heart Catheterization, Heart Catheterization With Stent, Tonsillectomy Additional Past Surgical History / Comment(s): Angioplasty 20 years ago Past Anesthesia/Blood Transfusion Reactions: No Reported Reaction Date of Last Stent Placement:: 2015 Past Psychological History: No Psychological Hx Reported Smoking Status: Former smoker Past Alcohol Use History: None Reported Past Drug Use History: None Reported - Past Family History Mother Family Medical History: Myocardial Infarction ([place]) Medications and Allergies Home Medications Medication Instructions Recorded Confirmed Type Aspirin EC [Ecotrin Low Dose] 81 mg PO DAILY 01/09/16 11/24/16 History Ergocalciferol (Vitamin D2) 50,000 unit PO TH 01/09/16 11/24/16 History [Drisdol] Folic Acid 1 mg PO DAILY 01/09/16 11/24/16 History Montelukast [Singulair] 10 mg PO DAILY 01/09/16 11/24/16 History Multivitamins, Thera [Multivitamin 1 tab PO DAILY 01/09/16 11/24/16 History (formulary)] Albuterol Nebulized [Ventolin 2.5 mg INHALATION RT-QID 11/24/16 11/24/16 History Nebulized] Atorvastatin [Lipitor] 80 mg PO DAILY 11/24/16 11/24/16 History Ferrous Sulfate [Feosol] 325 mg PO DAILY 11/24/16 11/24/16 History Fluticasone/Vilanterol [Breo 1 puff INHALATION RT-DAILY 11/24/16 11/24/16 History Ellipta 100-25 Mcg Inhaler] Ipratropium Nebulized [Atrovent 0.5 mg INHALATION RT-QID 11/24/16 11/24/16 History Nebulized] Ipratropium-Albuterol Nebulize 3 ml INHALATION RT-QID 11/24/16 11/24/16 History [Duoneb 0.5 mg-3 mg/3 ml Soln] buPROPion SR [Wellbutrin Sr] 150 mg PO BID 11/24/16 11/24/16 History Allergies Allergy/AdvReac Type Severity Reaction Status Date / Time No Known Allergies Allergy Verified 11/24/16 21:28 Physical Exam Vitals: Vital Signs Temp Pulse Pulse Resp BP BP Pulse Ox 11/25/16 16:40 97.9 F 83 19 107/65 96 11/25/16 16:30 89 20 107/65 94 L 11/25/16 16:21 82 11/25/16 16:20 85 19 107/65 96 11/25/16 16:10 74 12 107/65 100 11/25/16 16:07 79 11/25/16 16:00 82 101 H 21 107/65 96 11/25/16 15:50 83 20 100/56 96 11/25/16 15:40 82 19 100/56 97 11/25/16 15:30 88 18 100/56 97 11/25/16 15:20 90 21 100/56 97 11/25/16 15:10 83 23 100/56 98 11/25/16 15:00 84 37 H 100/56 99 11/25/16 14:54 97.6 F 82 22 100/56 84 L 11/25/16 14:50 84 24 96/58 98 11/25/16 14:40 87 22 92/55 95 11/25/16 14:30 83 16 97/54 98 11/25/16 14:20 91 32 H 98/57 99 11/25/16 14:10 88 24 105/59 98 11/25/16 14:00 85 73 H 105/63 98 11/25/16 13:50 84 24 104/50 98 11/25/16 13:40 82 28 H 110/66 99 11/25/16 13:30 84 23 94/51 98 11/25/16 13:20 79 31 H 100/59 98 11/25/16 13:10 87 16 82/57 99 11/25/16 13:00 74 19 90/56 98 11/25/16 12:50 81 27 H 84/52 99 11/25/16 12:40 56 L 15 93/46 91 L 11/25/16 12:39 97.4 F L 71 20 93/46 99 11/25/16 12:30 77 16 84/50 99 11/25/16 12:29 85 24 84/50 98 11/25/16 12:18 97.7 F 78 20 84/50 99 11/25/16 12:10 84 23 98/56 99 11/25/16 12:07 97.4 F L 80 20 98/56 99 11/25/16 12:06 97.4 F L 80 22 98/56 11/25/16 12:00 97.4 F L 70 101 H 18 98/56 95 11/25/16 11:50 84 13 98/56 97 11/25/16 11:40 80 31 H 98/56 99 11/25/16 11:30 75 21 98/56 99 11/25/16 11:20 97.6 F 75 20 82/54 97 11/25/16 11:10 79 82/54 98 11/25/16 11:00 81 82/54 96 11/25/16 10:50 73 84/50 98 11/25/16 10:40 86 84/50 97 11/25/16 10:30 73 84/50 99 11/25/16 10:20 77 84/50 98 11/25/16 10:10 77 84/50 100 11/25/16 10:07 77 84/50 100 11/25/16 09:50 77 20 84/50 99 11/25/16 09:40 97.5 F L 57 L 17 92/47 100 11/25/16 09:30 78 19 92/47 100 11/25/16 09:22 97.8 F 76 21 84/48 99 11/25/16 09:20 79 22 73/42 05/03/17 09:10 78 26 H 99/61 96 05/03/17 09:00 80 18 99/61 96 05/03/17 08:50 97.5 F L 84 22 99/61 93 L 0503/17 08:40 76 20 99/61 96 0503/17 08:30 71 14 99/61 98 05/03/17 08:20 78 13 99/61 100 05/03/17 08:10 70 13 99/61 98 0503/17 08:00 72 101 H 13 111/60 96 05/03/17 07:50 66 15 111/60 95 0503/17 07:40 73 15 111/60 93 L 0503/17 07:30 71 13 111/60 89 L 0503/17 07:20 73 12 111/60 95 0503/17 07:10 77 15 111/60 99 03/17 07:00 76 16 100/53 99 05/03/17 06:50 79 14 100/53 99 0503/17 06:40 75 18 100/53 100 0503/17 06:30 76 13 100/53 97 05/03/17 06:20 76 19 100/53 97 05/03/17 06:10 77 16 100/53 97 05/03/17 06:00 75 13 97/57 98 05/03/17 05:50 80 21 97/57 96 05/03/17 05:47 97.7 F 77 13 97/57 96 05/03/17 05:46 97.5 F L 79 20 73/42 99 05/03/17 05:40 76 13 105/58 96 05/03/17 05:30 77 13 105/58 95 05/03/17 05:20 79 13 105/58 95 05/03/17 05:10 84 17 105/58 85 L 05/03/17 05:00 83 24 91/52 95 05/03/17 04:50 82 24 91/52 95 05/03/17 04:40 83 16 91/52 96 05/03/17 04:30 84 14 91/52 95 05/03/17 04:20 85 24 91/52 96 05/03/17 04:10 84 23 91/52 98 05/03/17 04:00 98.0 F 88 101 H 18 96/56 97 05/03/17 03:59 98.0 F 85 17 91/52 96 11/25/16 03:50 86 17 96/56 95 11/25/16 03:40 92 20 96/56 96 11/25/16 03:30 97.7 F 88 17 89/51 95 11/25/16 03:20 91 14 89/51 97 11/25/16 03:10 91 16 89/51 94 L 11/25/16 03:00 90 15 95/57 95 11/25/16 02:59 97.5 F L 92 15 95/57 95 11/25/16 02:58 97.7 F 89 19 96/56 98 11/25/16 02:50 93 17 95/57 93 L 11/25/16 02:40 93 18 95/57 93 L 11/25/16 02:30 95 20 95/57 90 L 11/25/16 02:20 94 15 95/57 96 11/25/16 02:10 96 17 95/57 95 11/25/16 02:00 99 25 H 96/56 94 L 11/25/16 01:50 103 H 32 H 96/56 93 L 11/25/16 01:47 101 H 20 11/25/16 01:40 99 26 H 96/56 96 11/25/16 01:30 103 H 25 H 96/56 94 L 11/25/16 01:20 104 H 25 H 96/56 95 11/25/16 01:10 98.2 F 105 H 22 96/56 98 11/25/16 00:27 99.3 F 105 H 20 95/56 11/24/16 23:57 99.1 F 105 H 20 89/49 11/24/16 23:47 99.1 F 107 H 20 95/52 93 L 11/24/16 23:42 98.2 F 101 H 24 96/56 98 11/24/16 23:37 100.1 F H 109 H 16 108/56 11/24/16 22:51 108 H 20 111/59 100 11/24/16 21:51 114 H 20 121/67 94 L Intake and Output 11/25/16 11/25/16 11/25/16 06:59 14:59 22:59 Intake Total 2990 2216 200 Output Total 250 300 300 Balance 2740 1916 -100 Intake: IV 460 1375 200 PRBC at 150 ml/hr 300 Sodium Chloride 0.9% 1, 460 700 200 000 ml @ 100 mls/hr IV . Q10H STA Rx#:[id number] platelets at 125 ml/hr 375 Amount of Fluid Infused ( 1300 ml) Oral 240 Blood Product 1230 601 Platelet Pheresis Acda2 291 Unit [id number] Rc As-1 Unit 310 [id number] Rc As-3 Unit 310 [id number] Rc As-3 Unit 310 [id number] Output: Urine 250 300 300 Other: Weight 97.9 kg 97.9 kg 97.9 kg Patient Weight 11/26/16 06:59 Weight 97.9 kg In general patient is alert and oriented 3 in no apparent distress HEENT head normocephalic and atraumatic Neck is supple no JVD no goiter no lymphadenopathy Chest is clear to auscultation no wheezing Cardiac exam reveals regular heart sounds no gallops no murmurs Abdomen is soft nontender no organomegaly Extremity exam reveals no edema no cyanosis or clubbing Skin exam reveals no rashes or ecchymoses Neurological examination reveals no gross focal deficit Results CBC & Chem 7: 11/25/16 16:13 11/25/16 03:13 Labs: Abnormal Lab Results - Last 24 Hours (Table) 11/25/16 11/25/16 11/25/16 Range/Units 00:58 03:09 03:13 RBC (4.30-5.90) m/uL Hgb (13.0-17.5) gm/dL Hct (39.0-53.0) % MCV (80.0-100.0) fL RDW (11.5-15.5) % Plt Count (150-450) k/uL Nucleated RBCs (0-0) /100 WBC Chloride (98-107) mmol/L Carbon Dioxide (22-30) mmol/L BUN (9-20) mg/dL Glucose (74-99) mg/dL POC Glucose (mg/dL) 118 H (75-99) mg/dL Total Creatine Kinase 39 L (55-170) U/L CK-MB (CK-2) (0.0-2.4) ng/mL Troponin I 0.185 H* (0.000-0.034) ng/mL Triglycerides 167 H (<150) mg/dL HDL Cholesterol 13 L (40-60) mg/dL 11/25/16 11/25/16 11/25/16 Range/Units 03:13 06:21 09:30 RBC 2.13 L (4.30-5.90) m/uL Hgb 7.1 L (13.0-17.5) gm/dL Hct 22.8 L (39.0-53.0) % MCV 106.9 H D (80.0-100.0) fL RDW 24.6 H (11.5-15.5) % Plt Count 32 L* D (150-450) k/uL Nucleated RBCs 8 H (0-0) /100 WBC Chloride 112 H (98-107) mmol/L Carbon Dioxide 20 L (22-30) mmol/L BUN 23 H (9-20) mg/dL Glucose 104 H (74-99) mg/dL POC Glucose (mg/dL) (75-99) mg/dL Total Creatine Kinase (55-170) U/L CK-MB (CK-2) 5.0 H* (0.0-2.4) ng/mL Troponin I 0.794 H* (0.000-0.034) ng/mL Triglycerides (<150) mg/dL HDL Cholesterol (40-60) mg/dL 11/25/16 Range/Units 16:13 RBC 2.50 L (4.30-5.90) m/uL Hgb 8.1 L (13.0-17.5) gm/dL Hct 25.9 L (39.0-53.0) % MCV 103.7 H (80.0-100.0) fL RDW 23.6 H (11.5-15.5) % Plt Count 52 L D (150-450) k/uL Nucleated RBCs 4 H (0-0) /100 WBC Chloride (98-107) mmol/L Carbon Dioxide (22-30) mmol/L BUN (9-20) mg/dL Glucose (74-99) mg/dL POC Glucose (mg/dL) (75-99) mg/dL Total Creatine Kinase (55-170) U/L CK-MB (CK-2) (0.0-2.4) ng/mL Troponin I (0.000-0.034) ng/mL Triglycerides (<150) mg/dL HDL Cholesterol (40-60) mg/dL Thrombosis Risk Factor Assmnt - Choose All That Apply Any of the Below Risk Factors Present?: Yes Each Risk Factor Represents 2 Points: Age 61-74 years Thrombosis Risk Factor Assessment Total Risk Factor Score: 2 Thrombosis Risk Factor Assessment Level: Low Risk Assessment and Plan Plan: #1 severe shortness of breath multifactorial, related to severe anemia, underlying history of coronary artery disease, at this time patient has received 2 units of red blood cell transfusion consultation for hematology was initiated #2 coronary artery disease with previous angioplasty and stent placement, cardiology consultation was requested patient was evaluated by Dr. Graham #3 severe anemia, patient is having black tarry stool possible upper GI bleeding also patient had chronic anemia with thrombocytopenia hematology evaluation was requested #4 underlying history of hypertension well-controlled #5 underlying history of hyperlipidemia #6 underlying history of rheumatoid arthritis Continue was current management at this time monitor closely in ICU Will follow in a.m.
[2016-11-25] MEDS: BUDESONIDE 0.5 MG/2 ML NEBU INHALATION SCH (19:27)
[2016-11-26 05:21] LABS: Anisocytosis Moderate; CH 31.9; CHCM 30.5; HCT 25.1 % (39.0-53.0); HDW 4.85; HGB 7.4 gm/dL (13.0-17.5); Hypochromasia Marked; MCH 31.7 pg (25.0-35.0); MCHC 29.5 g/dL (31.0-37.0); MCV 107.4 fL (80.0-100.0); Macrocytosis Marked; Mean Platelet Volume 9.7; Poikilocytosis Marked; RBC 2.34 m/uL (4.30-5.90); RDW 23.4 % (11.5-15.5); WBC (Perox) 2.47
[2016-11-26 05:45] LABS: Anion Gap 8 mmol/L; Calcium 8.2 mg/dL (8.4-10.2); Carbon Dioxide 18 mmol/L (22-30); Chloride 113 mmol/L (98-107); Glucose 80 mg/dL (74-99); Non-African American GFR(MDRD) >60 (>60 ml/min/1.73 sqM); Sodium 139 mmol/L (137-145); Total Bilirubin 1.1 mg/dL (0.2-1.3); Total Protein 4.5 g/dL (6.3-8.2)
[2016-11-26 05:49] LABS: Add Differential Manual Differential
[2016-11-26 05:57] LABS: ALT 25 U/L (21-72); AST 41 U/L (17-59); Alkaline Phosphatase 43 U/L (38-126); Blood Urea Nitrogen 12 mg/dL (9-20); Magnesium 1.9 mg/dL (1.6-2.3); Phosphorous 4.1 mg/dL (2.5-4.5)
[2016-11-26 05:58] LABS: Band Neutrophils % 5.5 %; Nucleated Red Blood Cells 7 /100 WBC (0-0); Total Cells Counted 200
[2016-11-26 05:59] LABS: Manual Review Performed; WBC 2.8 k/uL (3.8-10.6)
[2016-11-26 06:00] LABS: Polychromasia Present
[2016-11-26 07:20] LABS: HGB 7.5 gm/dL (13.0-17.5); RBC 2.37 m/uL (4.30-5.90); WBC (Perox) 3.1
[2016-11-26 07:21] LABS: HCT 24.9 % (39.0-53.0)
[2016-11-26 07:22] LABS: MCH 31.5 pg (25.0-35.0); MCV 105.1 fL (80.0-100.0)
[2016-11-26 07:23] LABS: CH 31.9; CHCM 31.1; HDW 4.87; RDW 23.2 % (11.5-15.5)
[2016-11-26 07:24] LABS: Mean Platelet Volume 10.8
[2016-11-26] MEDS ORDERED: Magnesium Replacement Protocol 1 EACH MISC MISCELLANE PRN (07:28)
[2016-11-26] MEDS: IPRATROPIUM-ALBUTEROL 3 ML NEB INHALATION SCH ×4 (07:40→19:48)
[2016-11-26] MEDS: BUDESONIDE 0.5 MG/2 ML NEBU INHALATION SCH ×2 (07:40→19:48)
[2016-11-26 07:53] LABS: Add Differential Manual Differential
[2016-11-26 08:01] LABS: Blast Cells 1.5; Metamyelocytes % 0.5 %; Myelocytes % 1.5 %; Nucleated Red Blood Cells 9 /100 WBC (0-0); Total Cells Counted 200
[2016-11-26 08:07] LABS: Manual Review Performed; WBC 3.1 k/uL (3.8-10.6)
[2016-11-26 08:08] LABS: Polychromasia Present
[2016-11-26] MEDS: SODIUM CHLORIDE 0.9% 1,000 ML IV SCH ×3 (08:20→20:51)
[2016-11-26] MEDS: ATORVASTATIN 80 MG TAB PO SCH (08:20)
[2016-11-26] MEDS: MAGNESIUM SULFATE-D5W PMX 1 GM in DEXTROSE/WATER 1 100ML.BAG IVPB SCH ×2 (08:20→10:50)
[2016-11-26] MEDS: PANTOPRAZOLE 40 MG/10 ML VIAL IVP SCH (08:20)
[2016-11-26] MEDS: ASPIRIN 325 MG TAB PO SCH (08:20)
--- NOTE | 2016-11-26 09:33 | P.PN ---
Subjective Principal diagnosis: Severe anemia/acute coronary event This is a pleasant 76year old male patient with known CAD and s/p stenting of the proximal LAD in December of 2015 as well as known occluded right coronary artery presented to the hospital complaining of shortness of breath. The patient stated that the shortness of breath started about 3 months ago and it has been progressing slowly. Earlier today he was experiencing in addition to the shortness of breath chest discomfort in the mid of the chest as a pressure on the chest. At that point he decided to call ambulance and come to the hospital. The EKG showed sinus tachycardia with mild ST segment elevation in aVR and diffuse ST segment depression. The hemoglobin came in to be around 6. The patient stated that he has been noticing some black stool over the last several months. Please note that the patient is on dual antiplatelet therapy with aspirin and Plavix. On follow-up with the patient today, he is feeling better. The shortness of breath is much better. The heart rate has improved as well as. The hemoglobin is above 7 after 3 units of packed RBC. He was on aspirin and Plavix and the Plavix was stopped. GI consult has placed and the patient is in process to have endoscopy. Objective - Vital Signs Vital signs: Vital Signs Temp 97.7 F 11/26/16 07:10 Pulse 84 11/26/16 08:00 Resp 25 H 11/26/16 08:00 BP 108/74 11/26/16 08:00 Pulse Ox 94 L 11/26/16 08:00 Intake & Output 11/25/16 11/26/16 11/26/16 18:59 06:59 18:59 Intake Total 2616 1340 100 Output Total 900 950 Balance 1716 390 100 Weight 97.9 kg 99.6 kg 99.6 kg Intake: IV 1775 1100 100 PRBC at 150 ml/hr 300 Sodium Chloride 0.9% 1, 100 000 ml @ 100 mls/hr IV . Q10H [facility] Rx#:[id number] Sodium Chloride 0.9% 1, 1100 1100 000 ml @ 100 mls/hr IV . Q10H STA Rx#:[id number] platelets at 125 ml/hr 375 Oral 240 240 Blood Product 601 Platelet Pheresis Acda2 291 Unit [id number] Rc As-3 Unit 310 [id number] Output: Urine 900 950 Other: Voiding Method Urinal Urinal - Constitutional General appearance: Present: no acute distress - Respiratory Respiratory: bilateral: CTA - Cardiovascular Rhythm: regular Heart sounds: normal: S1, S2 - Labs CBC & Chem 7: 11/26/16 04:26 11/26/16 04:26 Labs: Abnormal Lab Results - Last 24 Hours (Table) 11/25/16 11/25/16 11/25/16 Range/Units 06:21 09:30 16:13 WBC (3.8-10.6) k/uL RBC 2.13 L 2.50 L (4.30-5.90) m/uL Hgb 7.1 L 8.1 L (13.0-17.5) gm/dL Hct 22.8 L 25.9 L (39.0-53.0) % MCV 106.9 H D 103.7 H (80.0-100.0) fL MCHC (31.0-37.0) g/dL RDW 24.6 H 23.6 H (11.5-15.5) % Plt Count 32 L* D 52 L D (150-450) k/uL Nucleated RBCs 8 H 4 H (0-0) /100 WBC Chloride (98-107) mmol/L Carbon Dioxide (22-30) mmol/L Calcium (8.4-10.2) mg/dL CK-MB (CK-2) 5.0 H* (0.0-2.4) ng/mL Troponin I 0.794 H* (0.000-0.034) ng/mL Total Protein (6.3-8.2) g/dL Albumin (3.5-5.0) g/dL 11/25/16 11/26/16 11/26/16 Range/Units 22:11 04:26 04:26 WBC 3.1 L 2.8 L (3.8-10.6) k/uL RBC 2.37 L 2.34 L (4.30-5.90) m/uL Hgb 7.5 L 7.4 L (13.0-17.5) gm/dL Hct 24.9 L 25.1 L (39.0-53.0) % MCV 105.1 H 107.4 H (80.0-100.0) fL MCHC 30.0 L 29.5 L (31.0-37.0) g/dL RDW 23.2 H 23.4 H (11.5-15.5) % Plt Count 57 L 60 L (150-450) k/uL Nucleated RBCs 9 H 7 H (0-0) /100 WBC Chloride 113 H (98-107) mmol/L Carbon Dioxide 18 L (22-30) mmol/L Calcium 8.2 L (8.4-10.2) mg/dL CK-MB (CK-2) (0.0-2.4) ng/mL Troponin I (0.000-0.034) ng/mL Total Protein 4.5 L (6.3-8.2) g/dL Albumin 2.2 L (3.5-5.0) g/dL Assessment and Plan Plan: Assessment #1 possible upper GI bleeding #2 anemia secondary to the above #3 acute respiratory failure #4 abnormal EKG #5 known CAD as described above Plan #1 continue monitoring the hemoglobin #2 continue holding the Plavix #3 acute coronary syndrome to be ruled out #4 at echocardiogram was Doppler #5 follow-up with the patient
--- NOTE | 2016-11-26 10:51 | ECHOF ---
Referral Reason:ACS MEASUREMENTS -------- HEIGHT: 182.9 cm WEIGHT: 99.3 kg BP: 106/69 IVSd: 1.0 cm (0.6 - 1.1) LVIDd: 4.7 cm (3.9 - 5.3) LVPWd: 1.3 cm (0.6 - 1.1) IVSs: 1.6 cm LVIDs: 3.5 cm LVPWs: 1.7 cm LAESV Index (A-L): 27.14 ml/m Ao Diam: 3.6 cm (2.0 - 3.7) AV Cusp: 2.0 cm (1.5 - 2.6) LA Diam: 3.8 cm (2.7 - 3.8) MV EXCURSION: 15.618 mm (> 18.000) MV EF SLOPE: 80 mm/s (70 - 150) EPSS: 0.7 cm MV E Ellis: 0.62 m/s MV DecT: 314 ms MV A Ellis: 0.82 m/s MV E/A Ratio: 0.76 RAP: 5.00 mmHg RVSP: 17.86 mmHg FINDINGS -------- Sinus rhythm. This was a technically good study. There is mild concentric left ventricular hypertrophy. Overall left ventricular systolic function is mildly impaired with, an EF between 45 - 50 %. Basal inferior LV wall motion is hypokinetic. The right ventricle is normal in size and function. The left atrial size is normal. The right atrium is normal in size. Aortic valve is trileaflet and is mildly thickened. Mild mitral annular calcification present. Mild mitral regurgitation is present. Mild tricuspid regurgitation present. The right ventricular systolic pressure, as measured by Doppler, is 17.86mmHg. Pulmonic valve appears structurally normal. The aortic root size is normal. The pericardium is normal. CONCLUSIONS -------- 1. Sinus rhythm. 2. Mild mitral annular calcification present. 3. Mild mitral regurgitation is present. 4. Mild tricuspid regurgitation present. 5. The right ventricular systolic pressure, as measured by Doppler, is 17.86mmHg. 6. Pulmonic valve appears structurally normal. 7. The aortic root size is normal. 8. The pericardium is normal. 9. This was a technically good study. 10. There is mild concentric left ventricular hypertrophy. 11. Overall left ventricular systolic function is mildly impaired with, an EF between 45 - 50 %. 12. Basal inferior LV wall motion is hypokinetic. 13. The right ventricle is normal in size and function. 14. The left atrial size is normal. 15. The right atrium is normal in size. 16. Aortic valve is trileaflet and is mildly thickened. EDUCATIONAL THERAPY TEACHER: Gogo Downing RDCS
--- NOTE | 2016-11-26 11:44 | P.PN ---
Subjective Principal diagnosis: anemia 76-year-old gentleman reevaluated today in regards to symptomatic anemia. Denies overt bleeding such as hematemesis hematochezia or melena. Hematology has been consulted. Case was discussed with hammer shop supervisor this morning. Plans to proceed with EGD colonoscopy tomorrow. Patient received platelets and blood transfusion upon admission. Current platelet count 60,000. Hemoglobin 7.4. White count 2.8. Resting comfortably in ICU. Denies abdominal pain no nausea or vomiting. Objective - Vital Signs Vital signs: Vital Signs Temp 97.7 F 11/26/16 07:10 Pulse 77 11/26/16 10:00 Resp 22 11/26/16 10:00 BP 112/61 11/26/16 10:00 Pulse Ox 94 L 11/26/16 10:00 Intake & Output 11/25/16 11/26/16 11/26/16 18:59 06:59 18:59 Intake Total 2616 1340 400 Output Total 900 950 900 Balance 1716 390 -500 Weight 97.9 kg 99.6 kg 99.6 kg Intake: IV 1775 1100 300 PRBC at 150 ml/hr 300 Sodium Chloride 0.9% 1, 300 000 ml @ 100 mls/hr IV . Q10H [facility] Rx#:[id number] Sodium Chloride 0.9% 1, 1100 1100 000 ml @ 100 mls/hr IV . Q10H [facility] Rx#:[id number] platelets at 125 ml/hr 375 Intake, IV Titration 100 Amount Magnesium Sulfate-D5w Pmx 100 1 gm In Dextrose/Water 1 100ml.bag @ 100 mls/hr IVPB Q1H [facility] Rx#: [id number] Oral 240 240 Blood Product 601 Platelet Pheresis Acda2 291 Unit [id number] Rc As-3 Unit 310 [id number] Output: Urine 900 950 900 Other: Voiding Method Urinal Urinal - Exam General appearance: The patient is alert, oriented, in no acute distress. HET: Head is normocephalic and atraumatic. Pupils are equal and reactive. Oropharynx is clear without lesions. Neck: Supple without lymphadenopathy. Trachea midline. Heart: S1 S2. Regular rate and rhythm. Lungs: No crackles or wheezes are heard. Abdomen: Soft, nontender, nondistended with bowel sounds. No peritoneal signs. No palpable organomegaly or masses. Extremities: Normal skin color and turgor. No cyanosis, rash, ulceration, clubbing, or edema. Radial and pedal pulses are 2/4 bilaterally. Neurological: No focal deficits. Strength and sensation are grossly intact. - Labs CBC & Chem 7: 11/26/16 04:26 11/26/16 04:26 Labs: Abnormal Lab Results - Last 24 Hours (Table) 11/25/16 11/25/16 11/25/16 Range/Units 06:21 16:13 22:11 WBC 3.1 L (3.8-10.6) k/uL RBC 2.13 L 2.50 L 2.37 L (4.30-5.90) m/uL Hgb 7.1 L 8.1 L 7.5 L (13.0-17.5) gm/dL Hct 22.8 L 25.9 L 24.9 L (39.0-53.0) % MCV 106.9 H D 103.7 H 105.1 H (80.0-100.0) fL MCHC 30.0 L (31.0-37.0) g/dL RDW 24.6 H 23.6 H 23.2 H (11.5-15.5) % Plt Count 32 L* D 52 L D 57 L (150-450) k/uL Nucleated RBCs 8 H 4 H 9 H (0-0) /100 WBC Chloride (98-107) mmol/L Carbon Dioxide (22-30) mmol/L Calcium (8.4-10.2) mg/dL Total Protein (6.3-8.2) g/dL Albumin (3.5-5.0) g/dL 11/26/16 11/26/16 Range/Units 04:26 04:26 WBC 2.8 L (3.8-10.6) k/uL RBC 2.34 L (4.30-5.90) m/uL Hgb 7.4 L (13.0-17.5) gm/dL Hct 25.1 L (39.0-53.0) % MCV 107.4 H (80.0-100.0) fL MCHC 29.5 L (31.0-37.0) g/dL RDW 23.4 H (11.5-15.5) % Plt Count 60 L (150-450) k/uL Nucleated RBCs 7 H (0-0) /100 WBC Chloride 113 H (98-107) mmol/L Carbon Dioxide 18 L (22-30) mmol/L Calcium 8.2 L (8.4-10.2) mg/dL Total Protein 4.5 L (6.3-8.2) g/dL Albumin 2.2 L (3.5-5.0) g/dL Assessment and Plan (1) Symptomatic anemia Narrative/Plan: 76-year-old gentleman presents with symptomatic anemia shortness of breath weakness decreased appetite and weight loss for several months exacerbated over the last month suggestive of acute blood loss with black colored bowel movements for at least 1 month duration with significant drop in hemoglobin. Suspect acute on chronic GI bleed maintained on iron supplementation for several months. Status: Acute (2) Thrombocytopenia Narrative/Plan: Etiology unclear consultation for hematology requested. Status: Acute (3) Acute blood loss anemia Status: Acute (4) GI bleed Narrative/Plan: Suspected GI bleed with black colored bowel movements suggestive of upper source possible lower or combination of both. Black colored bowel movements could be secondary to possible peptic ulcer disease possible diverticular blood loss however underlying malignancy cannot be entirely excluded. Status: Acute (5) Elevated troponin Narrative/Plan: Suspect mixed match currently being evaluated by cardiology. History of coronary artery disease with PCI stent on dual antiplatelet therapy prior to admission. Status: Acute (6) Macrocytosis Status: Acute (7) Colon, diverticulosis Narrative/Plan: Per barium enema study Status: Chronic Plan: 1. EGD colonoscopy tomorrow. Nothing by mouth after midnight. 2. Continue GI prophylaxis. Assessment and plan a care discussed with Dr. Farrell
--- NOTE | 2016-11-26 12:36 | P.PN ---
Subjective This is a 76-year-old male who presented with worsening shortness of breath. He had been having black stools at home. Presented with evidence of anemia and low platelets. Hemoglobin of 5.9. Patient was admitted to the ICU. He is currently followed by GI pulmonary cardiology and hematology. Scheduled for EGD and colonoscopy tomorrow. Patient reports improvement in his shortness of breath. No bowel movement since admission. Denies any nausea vomiting. Denies any chest pain. Denies any difficulty urinating. Objective - Vital Signs Vital signs: Vital Signs Temp 97.9 F 11/26/16 12:00 Pulse 84 11/26/16 12:00 Resp 21 11/26/16 12:00 BP 114/63 11/26/16 12:00 Pulse Ox 94 L 11/26/16 12:00 Intake & Output 11/25/16 11/26/16 11/26/16 18:59 06:59 18:59 Intake Total 2616 1340 700 Output Total 900 950 900 Balance 1716 390 -200 Weight 97.9 kg 99.6 kg 99.6 kg Intake: IV 1775 1100 500 PRBC at 150 ml/hr 300 Sodium Chloride 0.9% 1, 500 000 ml @ 100 mls/hr IV . Q10H [facility] Rx#:[id number] Sodium Chloride 0.9% 1, 1100 1100 000 ml @ 100 mls/hr IV . Q10H [facility] Rx#:[id number] platelets at 125 ml/hr 375 Intake, IV Titration 200 Amount Magnesium Sulfate-D5w Pmx 200 1 gm In Dextrose/Water 1 100ml.bag @ 100 mls/hr IVPB Q1H [facility] Rx#: [id number] Oral 240 240 Blood Product 601 Platelet Pheresis Acda2 291 Unit [id number] Rc As-3 Unit 310 [id number] Output: Urine 900 950 900 Other: Voiding Method Urinal Urinal - Exam Head normocephalic Neck supple Lungs clear to auscultation bilaterally no wheezing or crackles Heart regular rate and rhythm S1-S2, no rub or gallop Abdomen is soft nontender nondistended positive bowel sounds no hepatosplenomegaly Extremities no edema Neuro alert and orientated to 3 - Labs CBC & Chem 7: 11/26/16 04:26 11/26/16 04:26 Labs: Abnormal Lab Results - Last 24 Hours (Table) 11/25/16 11/25/16 11/25/16 Range/Units 06:21 16:13 22:11 WBC 3.1 L (3.8-10.6) k/uL RBC 2.13 L 2.50 L 2.37 L (4.30-5.90) m/uL Hgb 7.1 L 8.1 L 7.5 L (13.0-17.5) gm/dL Hct 22.8 L 25.9 L 24.9 L (39.0-53.0) % MCV 106.9 H D 103.7 H 105.1 H (80.0-100.0) fL MCHC 30.0 L (31.0-37.0) g/dL RDW 24.6 H 23.6 H 23.2 H (11.5-15.5) % Plt Count 32 L* D 52 L D 57 L (150-450) k/uL Nucleated RBCs 8 H 4 H 9 H (0-0) /100 WBC Chloride (98-107) mmol/L Carbon Dioxide (22-30) mmol/L Calcium (8.4-10.2) mg/dL Total Protein (6.3-8.2) g/dL Albumin (3.5-5.0) g/dL 11/26/16 11/26/16 Range/Units 04:26 04:26 WBC 2.8 L (3.8-10.6) k/uL RBC 2.34 L (4.30-5.90) m/uL Hgb 7.4 L (13.0-17.5) gm/dL Hct 25.1 L (39.0-53.0) % MCV 107.4 H (80.0-100.0) fL MCHC 29.5 L (31.0-37.0) g/dL RDW 23.4 H (11.5-15.5) % Plt Count 60 L (150-450) k/uL Nucleated RBCs 7 H (0-0) /100 WBC Chloride 113 H (98-107) mmol/L Carbon Dioxide 18 L (22-30) mmol/L Calcium 8.2 L (8.4-10.2) mg/dL Total Protein 4.5 L (6.3-8.2) g/dL Albumin 2.2 L (3.5-5.0) g/dL Assessment and Plan Plan: #1 symptomatic anemia with possible acute GI bleed and acute blood loss anemia. Patient scheduled for EGD and colonoscopy tomorrow. Patient has received 3 units of blood. Hemoglobin 7.4 today. He's followed by both GI service and hematology. Plavix remains on hold. Continue Protonix #2 coronary artery disease with previous angioplasty and stent placement in elevated troponin. Evaluated by cardiology #3 pancytopenia: Hematology consulted. We'll await their further recommendations. Patient did receive blood transfusion and platelet transfusion during this admission #4 underlying history of hypertension well-controlled #5 underlying history of hyperlipidemia #6 underlying history of rheumatoid arthritis I performed an examination of the patient and discussed their management with the physician Ash Conveyor Operator. I have reviewed the Physician Ash Conveyor Operator's notes and agree with the documented findings and plan of care
--- NOTE | 2016-11-26 14:59 | P.PN ---
Subjective Principal diagnosis: Acute GI bleed Patient seen and examined in the ICU with nursing staff and family at bedside. The patient states he is feeling well today. His blood pressures been stable. He states he has no shortness of breath or chest pain. He has been hemodynamically stable. Objective - Vital Signs Vital signs: Vital Signs Temp 97.9 F 11/26/16 12:00 Pulse 91 11/26/16 14:00 Resp 20 11/26/16 14:00 BP 128/64 11/26/16 14:00 Pulse Ox 97 11/26/16 13:00 Intake & Output 11/25/16 11/26/16 11/26/16 18:59 06:59 18:59 Intake Total 2616 1340 800 Output Total 900 950 900 Balance 1716 390 -100 Weight 97.9 kg 99.6 kg 99.6 kg Intake: IV 1775 1100 600 PRBC at 150 ml/hr 300 Sodium Chloride 0.9% 1, 600 000 ml @ 100 mls/hr IV . Q10H [facility] Rx#:[id number] Sodium Chloride 0.9% 1, 1100 1100 000 ml @ 100 mls/hr IV . Q10H [facility] Rx#:[id number] platelets at 125 ml/hr 375 Intake, IV Titration 200 Amount Magnesium Sulfate-D5w Pmx 200 1 gm In Dextrose/Water 1 100ml.bag @ 100 mls/hr IVPB Q1H [facility] Rx#: [id number] Oral 240 240 Blood Product 601 Platelet Pheresis Acda2 291 Unit [id number] Rc As-3 Unit 310 [id number] Output: Urine 900 950 900 Other: Voiding Method Urinal Urinal - Exam Gen: A+Ox3, NAD CV: RRR, s1/s2 Lungs: Diminished with scattered wheezing Abd: soft, NT/ND, +BS Ext: no edema - Labs CBC & Chem 7: 11/26/16 04:26 11/26/16 04:26 Labs: Abnormal Lab Results - Last 24 Hours (Table) 11/25/16 11/25/16 11/26/16 Range/Units 16:13 22:11 04:26 WBC 3.1 L 2.8 L (3.8-10.6) k/uL RBC 2.50 L 2.37 L 2.34 L (4.30-5.90) m/uL Hgb 8.1 L 7.5 L 7.4 L (13.0-17.5) gm/dL Hct 25.9 L 24.9 L 25.1 L (39.0-53.0) % MCV 103.7 H 105.1 H 107.4 H (80.0-100.0) fL MCHC 30.0 L 29.5 L (31.0-37.0) g/dL RDW 23.6 H 23.2 H 23.4 H (11.5-15.5) % Plt Count 52 L D 57 L 60 L (150-450) k/uL Nucleated RBCs 4 H 9 H 7 H (0-0) /100 WBC Chloride (98-107) mmol/L Carbon Dioxide (22-30) mmol/L Calcium (8.4-10.2) mg/dL Total Protein (6.3-8.2) g/dL Albumin (3.5-5.0) g/dL 11/26/16 Range/Units 04:26 WBC (3.8-10.6) k/uL RBC (4.30-5.90) m/uL Hgb (13.0-17.5) gm/dL Hct (39.0-53.0) % MCV (80.0-100.0) fL MCHC (31.0-37.0) g/dL RDW (11.5-15.5) % Plt Count (150-450) k/uL Nucleated RBCs (0-0) /100 WBC Chloride 113 H (98-107) mmol/L Carbon Dioxide 18 L (22-30) mmol/L Calcium 8.2 L (8.4-10.2) mg/dL Total Protein 4.5 L (6.3-8.2) g/dL Albumin 2.2 L (3.5-5.0) g/dL Assessment and Plan Plan: Acute hypoxic respiratory failure AECOPD Dyspnea Symptomatic anemia, acute blood loss Hypovolemic shock Emphysema Hx tobacco abuse Severe thrombocytopenia ASHA 9 mm nodule Suspect GIB Elevated troponin with hx CAD and LAD PCI NAGMA Dylipidemia O2 to maintain sat > or = to 88% Bronchodilators Pulmicort No steroids at this time due to GIB Monitor hemoglobin and transfuse for hemoglobin less than 7 Transfuse platelets for a less than 50 GI and cardio recs CT in 3 months to follow pulmonary nodule Smoking cessation recommended Continue IVF No anticoagulation at this time SCDs for DVT prophylaxis Consult hematology Monitor H/H GI prophylaxis Plan for endoscopy tomorrow Okay to transfer out of the ICU today.
[2016-11-26] MEDS ORDERED: PEG 3350-NA SULF,BICARB,CL/KCL 4,000 ML BOTTLE PO ONE (16:00)
[2016-11-26] MEDS: LACTATED RINGERS 1,000 ML IV SCH ×2 (17:36→17:41)
--- NOTE | 2016-11-26 17:45 | P.CONS ---
History of Present Illness - Reason for Consult Consult date: 11/26/16 anemia, thrombocytopenia Requesting physician: Chelsi Santos - Chief Complaint SOB - History of Present Illness Mr. Whitehead is a pleasant male pt of PCP Dr. Burnham who was referred to for progressive anemia and seen for 1st visit about 2 weeks ago, pt had a follow up sched for review of lab results next Wednesday. Pt was noted to have a Hgb of 11.4 and WBC was 3.6 03/2016, pt had been on Methotrexate for rheumatoid arthritis for the prior 3-4 years. In 08/11 Hgb was 9.7, WBC of 3.4 so methotrexate was stopped, pt was advised to take OTC iron. 09/28/16 follow up Hgb was 9.8, WBC 3.3 and plt 77,000. The pt was thus referred here for further evaluation and recommendations. Pt had been on dual antiplatelet therapy since stent placement 12/2015 with ASA /Plavix, he had never had a colonoscopy, had a negative barium enema in early 2016. Work up was completed in the office to evaluate for chronic blood loss/iron deficiency, drug effect on marrow and paraproteinemia. Pt reported to the ER for symptoms of SOB, he was c/o fatigue, mild dizziness, denied GRIMM, chest pain, palpitations or fluttering in his chest, no nausea, vomiting, diaphoresis, abd pain or cramping, hematuria, hematochezia, melena, tarry stool or any other bleeding. Hgb was 5.8 on admit, pt has been transfused with less then expected improvement in Hgb, Review of Systems All systems: negative Constitutional: Reports as per HPI Past Medical History Past Medical History: Hyperlipidemia, Hypertension, Myocardial Infarction (DC), Rheumatoid Arthritis (RA) Last Myocardial Infarction Date:: 1995 History of Any Multi-Drug Resistant Organisms: None Reported Past Surgical History: Heart Catheterization, Heart Catheterization With Stent, Tonsillectomy Additional Past Surgical History / Comment(s): Angioplasty 20 years ago Past Anesthesia/Blood Transfusion Reactions: No Reported Reaction Date of Last Stent Placement:: 2015 Past Psychological History: No Psychological Hx Reported Smoking Status: Former smoker Past Alcohol Use History: None Reported Past Drug Use History: None Reported - Past Family History Mother Family Medical History: Myocardial Infarction (DC) Medications and Allergies Home Medications Medication Instructions Recorded Confirmed Type Aspirin EC [Ecotrin Low Dose] 81 mg PO DAILY 01/09/16 11/24/16 History Ergocalciferol (Vitamin D2) 50,000 unit PO TH 01/09/16 11/24/16 History [Drisdol] Folic Acid 1 mg PO DAILY 01/09/16 11/24/16 History Montelukast [Singulair] 10 mg PO DAILY 01/09/16 11/24/16 History Multivitamins, Thera [Multivitamin 1 tab PO DAILY 01/09/16 11/24/16 History (formulary)] Albuterol Nebulized [Ventolin 2.5 mg INHALATION RT-QID 11/24/16 11/24/16 History Nebulized] Atorvastatin [Lipitor] 80 mg PO DAILY 11/24/16 11/24/16 History Ferrous Sulfate [Feosol] 325 mg PO DAILY 11/24/16 11/24/16 History Fluticasone/Vilanterol [Breo 1 puff INHALATION RT-DAILY 11/24/16 11/24/16 History Ellipta 100-25 Mcg Inhaler] Ipratropium Nebulized [Atrovent 0.5 mg INHALATION RT-QID 11/24/16 11/24/16 History Nebulized] Ipratropium-Albuterol Nebulize 3 ml INHALATION RT-QID 11/24/16 11/24/16 History [Duoneb 0.5 mg-3 mg/3 ml Soln] buPROPion SR [Wellbutrin Sr] 150 mg PO BID 11/24/16 11/24/16 History Allergies Allergy/AdvReac Type Severity Reaction Status Date / Time No Known Allergies Allergy Verified 11/24/16 21:28 Physical Exam Vitals: Vital Signs Temp Pulse Pulse Resp BP Pulse Ox 11/26/16 16:00 79 20 124/92 96 11/26/16 15:00 124/67 11/26/16 14:00 91 20 128/64 11/26/16 13:00 92 14 135/71 97 11/26/16 12:00 97.9 F 72 84 21 114/63 94 L 11/26/16 11:00 75 19 99/70 11/26/16 10:00 77 22 112/61 94 L 11/26/16 09:00 72 18 106/60 96 11/26/16 08:00 81 84 25 H 108/74 94 L 11/26/16 07:50 85 35 H 103/67 92 L 11/26/16 07:40 79 39 H 103/67 97 11/26/16 07:30 76 17 103/67 98 11/26/16 07:20 82 30 H 103/67 98 11/26/16 07:10 97.7 F 74 12 103/67 98 11/26/16 07:00 60 26 H 103/67 96 11/26/16 06:50 91 35 H 108/62 96 11/26/16 06:40 77 26 H 108/62 95 11/26/16 06:30 76 22 108/62 96 11/26/16 06:20 70 17 108/62 94 L 11/26/16 06:10 73 22 108/62 94 L 11/26/16 06:00 83 23 108/62 95 11/26/16 05:50 72 15 105/63 93 L 11/26/16 05:40 70 17 105/63 95 11/26/16 05:30 69 16 105/63 94 L 11/26/16 05:20 67 16 105/63 95 11/26/16 05:10 66 18 105/63 95 11/26/16 05:00 81 26 H 105/63 96 11/26/16 04:50 74 25 H 103/58 96 11/26/16 04:40 71 18 103/58 96 11/26/16 04:30 77 19 103/58 95 11/26/16 04:20 69 22 103/58 96 11/26/16 04:10 71 16 103/58 94 L 11/26/16 04:00 97.8 F 68 84 18 103/58 96 11/26/16 03:50 68 19 114/63 96 11/26/16 03:40 77 17 114/63 91 L 04 03:30 72 20 114/63 90 L 11/26/16 03:20 83 16 114/63 91 L 11/26/16 03:10 92 25 H 114/63 98 11/26/16 03:00 62 19 114/63 92 L 11/26/16 02:50 66 13 99/55 98 11/26/16 02:40 65 16 99/55 95 11/26/16 02:30 65 16 99/55 95 11/26/16 02:20 70 15 99/55 94 L 11/26/16 02:10 66 11 L 99/55 94 L 11/26/16 02:00 70 16 99/55 95 11/26/16 01:50 70 23 101/63 96 11/26/16 01:40 76 18 101/63 96 11/26/16 01:30 69 19 101/63 94 L 11/26/16 01:20 101/63 94 L 11/26/16 01:10 101/63 94 L 11/26/16 01:00 74 18 101/63 93 L 11/26/16 00:50 76 18 110/59 93 L 11/26/16 00:40 75 27 H 110/59 95 11/26/16 00:30 77 16 110/59 95 11/26/16 00:20 75 14 110/59 93 L 11/26/16 00:10 77 16 110/59 91 L 11/26/16 00:00 97.8 F 61 84 18 110/59 92 L 11/25/16 23:50 75 16 104/54 92 L 11/25/16 23:42 76 14 104/54 95 11/25/16 23:40 76 19 104/54 85 L 11/25/16 23:30 76 15 104/54 94 L 11/25/16 23:20 78 12 104/54 92 L 11/25/16 23:10 78 14 104/54 93 L 11/25/16 23:00 78 18 104/54 93 L 11/25/16 22:50 79 20 109/68 93 L 11/25/16 22:40 78 14 109/68 96 11/25/16 22:30 76 18 109/68 95 11/25/16 22:20 78 17 109/68 95 11/25/16 22:10 83 25 H 109/68 96 11/25/16 22:00 78 16 109/68 99 11/25/16 21:50 80 17 106/49 96 11/25/16 21:40 82 18 106/49 97 11/25/16 21:30 88 22 106/49 93 L 11/25/16 21:20 85 17 106/49 95 11/25/16 21:10 21 106/49 92 L 11/25/16 21:00 106/49 98 11/25/16 20:50 116/59 90 L 11/25/16 20:40 87 116/59 92 L 11/25/16 20:30 86 20 116/59 90 L 11/25/16 20:20 85 11 L 116/59 93 L 11/25/16 20:10 89 17 116/59 92 L 11/25/16 20:00 97.4 F L 92 84 16 116/59 93 L 11/25/16 19:50 90 17 103/49 90 L 11/25/16 19:40 96 22 103/49 97 11/25/16 19:38 82 11/25/16 19:30 83 16 103/49 100 11/25/16 19:27 80 11/25/16 19:00 78 23 103/49 96 11/25/16 18:50 77 20 102/58 95 11/25/16 18:40 78 24 102/58 93 L 11/25/16 18:30 83 33 H 93/48 95 11/25/16 18:20 83 21 93/48 93 L 11/25/16 18:10 79 20 93/48 94 L 11/25/16 18:00 79 20 93/48 93 L 11/25/16 17:50 83 28 H 93/48 94 L 11/25/16 17:40 79 20 93/48 94 L 11/25/16 17:30 80 21 93/48 93 L 11/25/16 17:20 88 25 H 93/48 92 L 11/25/16 17:10 88 21 93/48 99 Intake and Output 11/26/16 11/26/16 11/26/16 06:59 14:59 22:59 Intake Total 700 900 300 Output Total 950 900 300 Balance -250 0 0 Intake: IV 700 700 300 Sodium Chloride 0.9% 1, 700 300 000 ml @ 100 mls/hr IV . Q10H [facility] Rx#:[id number] Sodium Chloride 0.9% 1, 700 000 ml @ 100 mls/hr IV . Q10H [facility] Rx#:[id number] Intake, IV Titration 200 Amount Magnesium Sulfate-D5w Pmx 200 1 gm In Dextrose/Water 1 100ml.bag @ 100 mls/hr IVPB Q1H [facility] Rx#: [id number] Output: Urine 950 900 300 Other: Voiding Method Urinal Urinal Weight 99.6 kg 99.6 kg Patient Weight 11/27/16 06:59 Weight 99.6 kg - Constitutional General appearance: average body habitus, no acute distress, obese - EENT Eyes: anicteric sclerae, normal appearance ENT: normal oropharynx - Neck Neck: no lymphadenopathy - Respiratory Respiratory: bilateral: CTA - Cardiovascular Rhythm: irregularly irregular Heart sounds: normal: S1, S2 leg Peripheral Edema: bilateral: Trace - Gastrointestinal General gastrointestinal: no absent bowel sounds, no decreased bowel sounds, no distended, no hepatomegaly, no hyperactive bowel sounds, normal bowel sounds, no organomegaly, no rigid, no scaphoid, soft, no splenomegaly, no tenderness, no umbilical hernia, no ventral hernia - Neurologic Neurologic: CNII-XII intact - Musculoskeletal Musculoskeletal: strength equal bilaterally - Psychiatric Psychiatric: A&O x's 3, appropriate affect, intact judgment & insight Results CBC & Chem 7: 11/26/16 04:26 11/26/16 04:26 Labs: Abnormal Lab Results - Last 24 Hours (Table) 11/25/16 11/25/16 11/26/16 Range/Units 16:13 22:11 04:26 WBC 3.1 L 2.8 L (3.8-10.6) k/uL RBC 2.50 L 2.37 L 2.34 L (4.30-5.90) m/uL Hgb 8.1 L 7.5 L 7.4 L (13.0-17.5) gm/dL Hct 25.9 L 24.9 L 25.1 L (39.0-53.0) % MCV 103.7 H 105.1 H 107.4 H (80.0-100.0) fL MCHC 30.0 L 29.5 L (31.0-37.0) g/dL RDW 23.6 H 23.2 H 23.4 H (11.5-15.5) % Plt Count 52 L D 57 L 60 L (150-450) k/uL Nucleated RBCs 4 H 9 H 7 H (0-0) /100 WBC Chloride (98-107) mmol/L Carbon Dioxide (22-30) mmol/L Calcium (8.4-10.2) mg/dL Total Protein (6.3-8.2) g/dL Albumin (3.5-5.0) g/dL 11/26/16 Range/Units 04:26 WBC (3.8-10.6) k/uL RBC (4.30-5.90) m/uL Hgb (13.0-17.5) gm/dL Hct (39.0-53.0) % MCV (80.0-100.0) fL MCHC (31.0-37.0) g/dL RDW (11.5-15.5) % Plt Count (150-450) k/uL Nucleated RBCs (0-0) /100 WBC Chloride 113 H (98-107) mmol/L Carbon Dioxide 18 L (22-30) mmol/L Calcium 8.2 L (8.4-10.2) mg/dL Total Protein 4.5 L (6.3-8.2) g/dL Albumin 2.2 L (3.5-5.0) g/dL CT scan - chest: report reviewed Assessment and Plan (1) Symptomatic anemia Status: Acute (2) Thrombocytopenia Status: Acute Plan: Dr. Sorto did discuss case with GI. Plan is to proceed with colonoscopy for anemia, also pt does not have a baseline colonoscopy. Labs from the office were reviewed, no evidence that suggests paraproteinemia or severe nutritional deficiency. Will try to get bone marrow sched for tomorrow afternoon. For now transfuse to keep Hgb >7, or to keep pt from being symptomatic.
[2016-11-27] MEDS: BUDESONIDE 0.5 MG/2 ML NEBU INHALATION SCH ×2 (08:20→20:00)
[2016-11-27] MEDS: IPRATROPIUM-ALBUTEROL 3 ML NEB INHALATION SCH ×4 (08:20→20:00)
[2016-11-27 08:46] LABS: ALT 27 U/L (21-72); AST 34 U/L (17-59); Alkaline Phosphatase 64 U/L (38-126); Anion Gap 9 mmol/L; Blood Urea Nitrogen 8 mg/dL (9-20); Calcium 7.9 mg/dL (8.4-10.2); Carbon Dioxide 19 mmol/L (22-30); Chloride 114 mmol/L (98-107); Glucose 90 mg/dL (74-99); Magnesium 2.1 mg/dL (1.6-2.3); Non-African American GFR(MDRD) >60 (>60 ml/min/1.73 sqM); Potassium 3.8 mmol/L (3.5-5.1); Sodium 142 mmol/L (137-145); Total Bilirubin 1.4 mg/dL (0.2-1.3); Total Protein 5.3 g/dL (6.3-8.2)
[2016-11-27 09:26] LABS: Anisocytosis Moderate; CHCM 30.7; HCT 29.2 % (39.0-53.0); HDW 4.86; Hypochromasia Marked; Large Platelets Flag Moderate; MCHC 30.9 g/dL (31.0-37.0); MCV 106.7 fL (80.0-100.0); Macrocytosis Marked; Mean Platelet Volume 11.3; Poikilocytosis Marked; RBC 2.73 m/uL (4.30-5.90); RDW 22.7 % (11.5-15.5); WBC (Perox) 1.94
[2016-11-27] MEDS: ATORVASTATIN 80 MG TAB PO SCH (09:56)
[2016-11-27] MEDS: PANTOPRAZOLE 40 MG/10 ML VIAL IVP SCH (09:56)
[2016-11-27 10:49] LABS: Add Differential Manual Differential
[2016-11-27 11:00] LABS: Nucleated Red Blood Cells 10 /100 WBC (0-0); Total Cells Counted 200
[2016-11-27 11:01] LABS: WBC 2.1 k/uL (3.8-10.6)
[2016-11-27 11:02] LABS: Manual Review Performed; Polychromasia Present
--- NOTE | 2016-11-27 13:07 | P.PN ---
Subjective Principal diagnosis: GIB Patient seen and examined with his at bedside. The patient states he is feeling well today. He underwent prep for endoscopy today. The plan is for endoscopy followed by bone marrow biopsy. Objective - Vital Signs Vital signs: Vital Signs Temp 97 F L 11/27/16 11:00 Pulse 77 11/27/16 11:00 Resp 20 11/27/16 11:00 BP 123/68 11/27/16 11:00 Pulse Ox 94 L 11/27/16 11:00 Intake & Output 11/26/16 11/27/16 11/27/16 18:59 06:59 18:59 Intake Total 1200 571 Output Total 1200 Balance 0 571 Weight 99.6 kg Intake: IV 1000 150 Sodium Chloride 0.9% 1, 1000 150 000 ml @ 100 mls/hr IV . Q10H [facility] Rx#:[id number] Intake, IV Titration 200 Amount Magnesium Sulfate-D5w Pmx 200 1 gm In Dextrose/Water 1 100ml.bag @ 100 mls/hr IVPB Q1H [facility] Rx#: [id number] Blood Product 421 Platelet Pheresis Acda 0 Unit [id number] Output: Urine 1200 Other: Voiding Method Urinal Toilet Urinal # Voids 2 # Bowel Movements 2 - Exam Gen: A+Ox3, NAD CV: RRR, s1/s2 Lungs: Diminished with scattered wheezing Abd: soft, NT/ND, +BS Ext: no edema - Labs CBC & Chem 7: 11/27/16 08:15 11/27/16 08:15 Labs: Abnormal Lab Results - Last 24 Hours (Table) 11/27/16 11/27/16 Range/Units 08:15 08:15 WBC 2.1 L (3.8-10.6) k/uL RBC 2.73 L (4.30-5.90) m/uL Hgb 9.0 L D (13.0-17.5) gm/dL Hct 29.2 L (39.0-53.0) % MCV 106.7 H (80.0-100.0) fL MCHC 30.9 L (31.0-37.0) g/dL RDW 22.7 H (11.5-15.5) % Plt Count 47 L* (150-450) k/uL Neutrophils # (Manual) 0.9 L (1.3-7.7) k/uL Nucleated RBCs 10 H (0-0) /100 WBC Chloride 114 H (98-107) mmol/L Carbon Dioxide 19 L (22-30) mmol/L BUN 8 L (9-20) mg/dL Calcium 7.9 L (8.4-10.2) mg/dL Total Bilirubin 1.4 H (0.2-1.3) mg/dL Total Protein 5.3 L (6.3-8.2) g/dL Albumin 2.6 L (3.5-5.0) g/dL Assessment and Plan Plan: Acute hypoxic respiratory failure, improving AECOPD Dyspnea Symptomatic anemia, acute blood loss Hypovolemic shock Emphysema Hx tobacco abuse Severe thrombocytopenia Pancytopenia ASHA 9 mm nodule Suspect GIB Elevated troponin with hx CAD and LAD PCI NAGMA Dylipidemia O2 to maintain sat > or = to 88% Bronchodilators Pulmicort No steroids at this time due to GIB Monitor hemoglobin and transfuse for hemoglobin less than 7 Transfuse platelets for a less than 50 GI and cardio recs CT in 3 months to follow pulmonary nodule Smoking cessation recommended Continue IVF No anticoagulation at this time SCDs for DVT prophylaxis Monitor H/H GI prophylaxis Plan for endoscopy and bone marrow biopsy today
[2016-11-27] MEDS ORDERED: LACTATED RINGERS 1,000 ML IV ONE (13:29)
[2016-11-27] MEDS ORDERED: GLYCOPYRROLATE 0.2 MG/ML 2 ML VIAL ONE (13:30)
[2016-11-27] MEDS ORDERED: LIDOCAINE 1% INJ 10MG/ML (20 ML MDV) ONE (13:30)
[2016-11-27] MEDS ORDERED: MIDAZOLAM 2 MG/2 ML VIAL ONE (13:30)
[2016-11-27] MEDS ORDERED: PROPOFOL 10 MG/ML 20 ML VIAL IV ONE (13:30)
[2016-11-27] MEDS ORDERED: fentaNYL (PF) 50 MCG/ML 50 ML VIAL ONE (13:30)
[2016-11-27] MEDS: LACTATED RINGERS 1,000 ML IV SCH (14:01)
--- NOTE | 2016-11-27 14:06 | P.PCN ---
Date of Procedure: 11/27/16 Procedure(s) Performed: Brief history: Patient is a pleasant 76-year-old white male, scheduled for an elective upper endoscopy as well as colonoscopy as a part of evaluation of lipase was last 1 month duration. He was admitted to the hospital and was noted to have a hemoglobin of 5.9 requiring 3 units of blood transfusion. In the meantime he was also noted to have pancytopenia. He is scheduled for a bone marrow biopsy also after endoscopic procedures. Procedure performed: Esophagogastroduodenoscopy with argon plasma coagulation Colonoscopy and snare polypectomy Preoperative diagnosis: Black tarry stools of one month duration Severe symptomatic anemia Anesthesia: MAC Procedure: After informed consent was obtained from the patient was brought into the endoscopy unit and IV sedation was administered by anesthesia under continuous monitoring. Initially upper endoscopy was done. The Olympus GF 160 video endoscope was inserted inserted into the mouth and esophagus intubated without any difficulty and was gradually advanced into the stomach and duodenum and carefully examined. The bulb and second part of the duodenum had some fresh blood noted and after thorough irrigation there were several scattered angioectasia noted in the third part of the duodenum which may coagulated using argon plasma with good hemostasis.. The scope was then withdrawn into the stomach adequately insufflated with air and upon careful examination the antrum had one small angiectasia which was also coagulated using argon plasma, and body, cardia and fundus appeared normal. The scope was then withdrawn into the esophagus. The GE junction was located at 40 cm to the incisors. It appeared regular with no erythema erosions or ulcerations. Rest of the esophagus appeared normal. Patient tolerated the procedure well. At this time the patient continued to remain sedation. Initial digital rectal examination was normal. Olympus CF 160 video colonoscope was then inserted into the rectum and gradually advanced to the cecum without any difficulty. Careful examination was performed as the scope was gradually being withdrawn. The prep was excellent. The cecum, ascending colon, transverse colon, descending colon, sigmoid colon and rectum appeared normal. In the distal rectum there was a 1 cm polyp removed by snare polypectomy. Scattered sigmoid diverticulosis seen. Retroflexion was performed in the rectum and small internal hemorrhoids were noted. Patient tolerated the procedure well. Impression: 1. 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 2. Colonoscopy revealed 1 cm distal rectal polyp serous was snare polypectomy and small internal hemorrhoids. Recommendations: Findings of this examination were discussed with the patient as well as his family. He was advised to follow with the biopsy results. He'll be started on a regular diet today.
--- NOTE | 2016-11-27 14:53 | PCN ---
DATE OF PROCEDURE: 11/27/2016 PROCEDURE: Bone marrow aspiration biopsy. INDICATIONS FOR PROCEDURE: Progressive pancytopenia. TYPE OF ANESTHESIA: Local with IV sedation. PROCEDURE NOTE: The procedure was explained in detail to the patient on the floor. He was brought to the outpatient endoscopy suite, where prior to this procedure he had a colonoscopy. Sedation was continued. He was placed in the left decubitus position. The area over both posterior iliac crests was cleaned and prepped with iodine and sterile draping. Local anesthesia was administered with lidocaine to the right posterior iliac crest. Jamshidi needle was then inserted and bone marrow aspirate and biopsy obtained. On withdrawal of the needle, hemostasis was easily achieved. Blood loss was minimal and recovery from sedation was satisfactory. He appeared to have tolerated the procedure well without any obvious complications.
[2016-11-27] MEDS: SODIUM CHLORIDE 0.9% 1,000 ML IV SCH ×2 (15:54→21:37)
--- NOTE | 2016-11-27 16:05 | P.PN ---
Subjective Patient is a 76-year-old male with multiple medical problems who presented to [facility] due to worsening shortness of breath. Patient was also having black stools, he has been followed by Dr. Mariel Burnham, he had evidence of anemia and low platelet counts he was referred to Dr. Sorto, who saw him once as outpatient. Patient also has known history of coronary artery disease and had previous angioplasty with stent placement he is maintained on aspirin and Plavix as outpatient. Hemoglobin on presentation was down to 5.9, patient was admitted to intensive care unit, red blood cell transfusion was requested Consultation for gastroenterology, critical care, cardiology and hematology were initiated. Today patient underwent EGD, colonoscopy was polypectomy, and bone marrow biopsy. Objective - Vital Signs Vital signs: Vital Signs Temp 96.3 F L 11/27/16 14:50 Pulse 86 11/27/16 15:00 Resp 20 11/27/16 15:00 BP 123/82 11/27/16 15:00 Pulse Ox 95 11/27/16 15:00 Intake & Output 11/26/16 11/27/16 11/27/16 18:59 06:59 18:59 Intake Total 1200 1592 Output Total 1200 Balance 0 1592 Weight 99.6 kg Intake: IV 1000 750 Sodium Chloride 0.9% 1, 1000 150 000 ml @ 100 mls/hr IV . Q10H [facility] Rx#:[id number] Intake, IV Titration 200 Amount Magnesium Sulfate-D5w Pmx 200 1 gm In Dextrose/Water 1 100ml.bag @ 100 mls/hr IVPB Q1H [facility] Rx#: [id number] Blood Product 842 Platelet Pheresis Acda 421 Unit [id number] Output: Urine 1200 Other: Voiding Method Urinal Toilet Toilet Urinal Urinal # Voids 2 2 # Bowel Movements 2 1 - Exam In general patient is alert and oriented 3 in no apparent distress HEENT head normocephalic and atraumatic Neck is supple no JVD no goiter no lymphadenopathy Chest is clear to auscultation no wheezing Cardiac exam reveals regular heart sounds no gallops no murmurs Abdomen is soft nontender no organomegaly Extremity exam reveals no edema no cyanosis or clubbing Skin exam reveals no rashes or ecchymoses Neurological examination reveals no gross focal deficit - Labs CBC & Chem 7: 11/27/16 08:15 11/27/16 08:15 Labs: Abnormal Lab Results - Last 24 Hours (Table) 11/27/16 11/27/16 Range/Units 08:15 08:15 WBC 2.1 L (3.8-10.6) k/uL RBC 2.73 L (4.30-5.90) m/uL Hgb 9.0 L D (13.0-17.5) gm/dL Hct 29.2 L (39.0-53.0) % MCV 106.7 H (80.0-100.0) fL MCHC 30.9 L (31.0-37.0) g/dL RDW 22.7 H (11.5-15.5) % Plt Count 47 L* (150-450) k/uL Neutrophils # (Manual) 0.9 L (1.3-7.7) k/uL Nucleated RBCs 10 H (0-0) /100 WBC Chloride 114 H (98-107) mmol/L Carbon Dioxide 19 L (22-30) mmol/L BUN 8 L (9-20) mg/dL Calcium 7.9 L (8.4-10.2) mg/dL Total Bilirubin 1.4 H (0.2-1.3) mg/dL Total Protein 5.3 L (6.3-8.2) g/dL Albumin 2.6 L (3.5-5.0) g/dL Assessment and Plan Plan: #1 severe shortness of breath multifactorial, related to severe anemia, underlying history of coronary artery disease, at this time patient has received 2 units of red blood cell transfusion consultation for hematology was initiated #2 coronary artery disease with previous angioplasty and stent placement, cardiology consultation was requested patient was evaluated by Dr. Graham #3 severe anemia, patient is having black tarry stool possible upper GI bleeding also patient had chronic anemia with thrombocytopenia hematology evaluation was requested, patient underwent EGD, colonoscopy with polypectomy and bone marrow biopsy #4 underlying history of hypertension well-controlled #5 underlying history of hyperlipidemia #6 underlying history of rheumatoid arthritis Continue was current management at this time monitor closely in ICU
--- NOTE | 2016-11-27 17:12 | P.PN ---
Subjective Principal diagnosis: Pancytopenia and severe anemia Objective - Vital Signs Vital signs: Vital Signs Temp 96.3 F L 11/27/16 14:50 Pulse 86 11/27/16 15:00 Resp 20 11/27/16 15:00 BP 123/82 11/27/16 15:00 Pulse Ox 95 11/27/16 15:00 Intake & Output 11/26/16 11/27/16 11/27/16 18:59 06:59 18:59 Intake Total 1200 1592 Output Total 1200 Balance 0 1592 Weight 99.6 kg Intake: IV 1000 750 Sodium Chloride 0.9% 1, 1000 150 000 ml @ 100 mls/hr IV . Q10H [facility] Rx#:[id number] Intake, IV Titration 200 Amount Magnesium Sulfate-D5w Pmx 200 1 gm In Dextrose/Water 1 100ml.bag @ 100 mls/hr IVPB Q1H [facility] Rx#: [id number] Blood Product 842 Platelet Pheresis Acda 421 Unit [id number] Output: Urine 1200 Other: Voiding Method Urinal Toilet Toilet Urinal Urinal # Voids 2 2 # Bowel Movements 2 1 - Constitutional General appearance: Present: no acute distress - EENT Eyes: Present: EOMI, PERRLA ENT: Present: hearing grossly normal, normal oropharynx - Respiratory Respiratory: bilateral: CTA - Cardiovascular Rhythm: regular Heart sounds: normal: S1, S2 - Gastrointestinal General gastrointestinal: Present: normal bowel sounds, soft - Integumentary Integumentary: Present: normal - Neurologic Neurologic: Present: CNII-XII intact - Musculoskeletal Musculoskeletal: Present: generalized weakness - Psychiatric Psychiatric: Present: A&O x's 3 - Labs CBC & Chem 7: 11/27/16 08:15 11/27/16 08:15 Labs: Abnormal Lab Results - Last 24 Hours (Table) 11/27/16 11/27/16 Range/Units 08:15 08:15 WBC 2.1 L (3.8-10.6) k/uL RBC 2.73 L (4.30-5.90) m/uL Hgb 9.0 L D (13.0-17.5) gm/dL Hct 29.2 L (39.0-53.0) % MCV 106.7 H (80.0-100.0) fL MCHC 30.9 L (31.0-37.0) g/dL RDW 22.7 H (11.5-15.5) % Plt Count 47 L* (150-450) k/uL Neutrophils # (Manual) 0.9 L (1.3-7.7) k/uL Nucleated RBCs 10 H (0-0) /100 WBC Chloride 114 H (98-107) mmol/L Carbon Dioxide 19 L (22-30) mmol/L BUN 8 L (9-20) mg/dL Calcium 7.9 L (8.4-10.2) mg/dL Total Bilirubin 1.4 H (0.2-1.3) mg/dL Total Protein 5.3 L (6.3-8.2) g/dL Albumin 2.6 L (3.5-5.0) g/dL Assessment and Plan (1) Pancytopenia Narrative/Plan: The patient's lab work up from the office was reviewed. It showed no evidence of any deficiency states, or monoclonal process. Those lab results, as well as the presence of an abnormal peripheral smear during this admission, indicated that the patient has an underlying marrow process. Therefore bone marrow aspiration biopsy was recommended. This was performed today. Clinical concerns include underlying myelodysplasia, as well as possible transformation. The drop in hemoglobin from baseline noted during this admission, his felt however to be due to blood loss. Status: Acute (2) GI bleed Narrative/Plan: As noted above, we feel that there is an underlying bone marrow production problem. However it appears that at least some component of the anemia is due to blood loss. The patient had been noting some black stools intermittently over the last month. Therefore it was felt that it would be reasonable to proceed with EGD and colonoscopy. Results were discussed with Dr. Farrell. 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 This was treated endoscopically. Continue to monitor her hemoglobin, with transfusion as needed Status: Acute
[2016-11-28] MEDS: PANTOPRAZOLE 40 MG TABLET PO SCH (08:25)
[2016-11-28] MEDS: ATORVASTATIN 80 MG TAB PO SCH (08:26)
[2016-11-28] MEDS: ASPIRIN 325 MG TAB PO SCH (08:26)
[2016-11-28 09:20] LABS: Anisocytosis Moderate; CH 31.5; CHCM 29.5; HCT 29.2 % (39.0-53.0); HDW 4.64; HGB 8.4 gm/dL (13.0-17.5); Hypochromasia Marked; MCH 31.6 pg (25.0-35.0); MCHC 28.9 g/dL (31.0-37.0); MCV 109.3 fL (80.0-100.0); Macrocytosis Marked; Mean Platelet Volume 9.1; Poikilocytosis Marked; RBC 2.67 m/uL (4.30-5.90); RDW 21.4 % (11.5-15.5); WBC (Perox) 1.48
[2016-11-28 09:22] LABS: WBC 1.5 k/uL (3.8-10.6)
[2016-11-28 09:23] LABS: ALT 31 U/L (21-72); AST 28 U/L (17-59); Alkaline Phosphatase 68 U/L (38-126); Anion Gap 8 mmol/L; Blood Urea Nitrogen 8 mg/dL (9-20); Calcium 8.4 mg/dL (8.4-10.2); Carbon Dioxide 21 mmol/L (22-30); Chloride 115 mmol/L (98-107); Glucose 90 mg/dL (74-99); Non-African American GFR(MDRD) >60 (>60 ml/min/1.73 sqM); Potassium 3.4 mmol/L (3.5-5.1); Sodium 144 mmol/L (137-145); Total Bilirubin 1.1 mg/dL (0.2-1.3); Total Protein 5.2 g/dL (6.3-8.2)
[2016-11-28] MEDS: SODIUM CHLORIDE 0.9% 1,000 ML IV SCH (09:40)
[2016-11-28 10:31] LABS: Add Differential Manual Differential
[2016-11-28 10:35] LABS: Manual Review Performed; Nucleated Red Blood Cells 3 /100 WBC (0-0); Total Cells Counted 100
[2016-11-28 10:36] LABS: Polychromasia Present
[2016-11-28] MEDS: BUDESONIDE 0.5 MG/2 ML NEBU INHALATION SCH ×2 (11:59→20:25)
[2016-11-28] MEDS: IPRATROPIUM-ALBUTEROL 3 ML NEB INHALATION SCH ×3 (11:59→20:25)
[2016-11-28] MEDS: LACTATED RINGERS 1,000 ML IV SCH (12:34)
[2016-11-28 13:42] VITALS: BMI 30.6
--- NOTE | 2016-11-28 17:12 | P.PN ---
Subjective Patient is a 76-year-old male with multiple medical problems who presented to [facility] due to worsening shortness of breath. Patient was also having black stools, he has been followed by Dr. Mariel Burnham, he had evidence of anemia and low platelet counts he was referred to Dr. Sorto, who saw him once as outpatient. Patient also has known history of coronary artery disease and had previous angioplasty with stent placement he is maintained on aspirin and Plavix as outpatient. Hemoglobin on presentation was down to 5.9, patient was admitted to intensive care unit, red blood cell transfusion was requested Consultation for gastroenterology, critical care, cardiology and hematology were initiated. Today patient underwent EGD, colonoscopy was polypectomy, and bone marrow biopsy. Objective - Vital Signs Vital signs: Vital Signs Temp 96.1 F L 11/28/16 15:00 Pulse 84 11/28/16 15:00 Resp 16 11/28/16 15:00 BP 116/70 11/28/16 15:00 Pulse Ox 91 L 11/28/16 15:00 Intake & Output 11/27/16 11/28/16 11/28/16 18:59 06:59 18:59 Intake Total 1592 120 Output Total 300 300 Balance 1292 -180 Weight 99.6 kg 99.6 kg Intake: IV 750 Sodium Chloride 0.9% 1, 150 000 ml @ 100 mls/hr IV . Q10H [facility] Rx#:[id number] Oral 120 Blood Product 842 Platelet Pheresis Acda 421 Unit [id number] Output: Urine 300 300 Other: Voiding Method Toilet Toilet Toilet Urinal Urinal Urinal # Voids 2 1 1 # Bowel Movements 1 1 2 - Exam In general patient is alert and oriented 3 in no apparent distress HEENT head normocephalic and atraumatic Neck is supple no JVD no goiter no lymphadenopathy Chest is clear to auscultation no wheezing Cardiac exam reveals regular heart sounds no gallops no murmurs Abdomen is soft nontender no organomegaly Extremity exam reveals no edema no cyanosis or clubbing Skin exam reveals no rashes or ecchymoses Neurological examination reveals no gross focal deficit - Labs CBC & Chem 7: 11/28/16 08:25 11/28/16 08:25 Labs: Abnormal Lab Results - Last 24 Hours (Table) 11/28/16 11/28/16 Range/Units 08:25 08:25 WBC 1.5 L* (3.8-10.6) k/uL RBC 2.67 L (4.30-5.90) m/uL Hgb 8.4 L (13.0-17.5) gm/dL Hct 29.2 L (39.0-53.0) % MCV 109.3 H (80.0-100.0) fL MCHC 28.9 L (31.0-37.0) g/dL RDW 21.4 H (11.5-15.5) % Plt Count 58 L (150-450) k/uL Neutrophils # (Manual) 0.5 L (1.3-7.7) k/uL Lymphocytes # (Manual) 0.9 L (1.0-4.8) k/uL Nucleated RBCs 3 H (0-0) /100 WBC Potassium 3.4 L (3.5-5.1) mmol/L Chloride 115 H (98-107) mmol/L Carbon Dioxide 21 L (22-30) mmol/L BUN 8 L (9-20) mg/dL Total Protein 5.2 L (6.3-8.2) g/dL Albumin 2.5 L (3.5-5.0) g/dL Assessment and Plan Plan: #1 severe shortness of breath multifactorial, related to severe anemia, underlying history of coronary artery disease, at this time patient has received 2 units of red blood cell transfusion consultation for hematology was initiated #2 coronary artery disease with previous angioplasty and stent placement, cardiology consultation was requested patient was evaluated by Dr. Graham #3 severe anemia, patient is having black tarry stool possible upper GI bleeding also patient had chronic anemia with thrombocytopenia hematology evaluation was requested, patient underwent EGD, colonoscopy with polypectomy and bone marrow biopsy #4 underlying history of hypertension well-controlled #5 underlying history of hyperlipidemia #6 underlying history of rheumatoid arthritis Patient underwent EGD and colonoscopy with Dr. 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 Today he had a normal bowel movement without any black stools Continue to monitor closely
--- NOTE | 2016-11-28 17:30 | PN ---
He does not have any chest pain. He is less short of breath. On physical examination, his blood pressure 144/74, respiratory rate 16, pulse rate of 70, temperature 96.1, O2 sat on 2 L by nasal cannula is 97%. HEENT is unremarkable. Chest reveals faint expiratory wheeze. Cardiovascular system reveals an S1, S2. Abdomen is soft. There is no edema. IMPRESSION AT THIS TIME: 1. Acute hypoxic respiratory failure secondary to exacerbation of chronic obstructive pulmonary disease. 2. Symptomatic anemia with acute blood loss. 3. Left upper lobe nodule. Continue bronchodilators, aerosolized steroids. Add Singulair to his regimen. Watch his hemoglobin. Depending on how he does, we shall make further changes to his care. He was counseled regarding his condition and this approach and has a fair understanding of our recommendations.
[2016-11-28] MEDS: MONTELUKAST 10 MG TAB PO SCH (20:16)
[2016-11-29] MEDS: ATORVASTATIN 80 MG TAB PO SCH (08:16)
[2016-11-29] MEDS: ASPIRIN 325 MG TAB PO SCH (08:16)
[2016-11-29] MEDS: PANTOPRAZOLE 40 MG TABLET PO SCH (08:16)
[2016-11-29] MEDS: BUDESONIDE 0.5 MG/2 ML NEBU INHALATION SCH ×2 (09:33→19:54)
[2016-11-29] MEDS: IPRATROPIUM-ALBUTEROL 3 ML NEB INHALATION SCH ×4 (09:34→19:54)
[2016-11-29 09:40] LABS: Anisocytosis Moderate; CHCM 29.3; HCT 29.5 % (39.0-53.0); HGB 8.5 gm/dL (13.0-17.5); Hypochromasia Marked; MCH 31.3 pg (25.0-35.0); Macrocytosis Marked; Mean Platelet Volume 9.9; Poikilocytosis Marked; RBC 2.73 m/uL (4.30-5.90); RDW 20.7 % (11.5-15.5); WBC 2.1 k/uL (3.8-10.6); WBC (Perox) 2.08
[2016-11-29 10:00] LABS: ALT 26 U/L (21-72); AST 23 U/L (17-59); Alkaline Phosphatase 63 U/L (38-126); Anion Gap 12 mmol/L; Blood Urea Nitrogen 6 mg/dL (9-20); Calcium 8.6 mg/dL (8.4-10.2); Carbon Dioxide 18 mmol/L (22-30); Chloride 114 mmol/L (98-107); Glucose 137 mg/dL (74-99); Non-African American GFR(MDRD) >60 (>60 ml/min/1.73 sqM); Potassium 3.3 mmol/L (3.5-5.1); Sodium 144 mmol/L (137-145); Total Bilirubin 0.8 mg/dL (0.2-1.3); Total Protein 5.3 g/dL (6.3-8.2)
[2016-11-29 12:21] LABS: Add Differential Manual Differential
[2016-11-29 12:26] LABS: Manual Review Performed; Nucleated Red Blood Cells 1 /100 WBC (0-0); Polychromasia Present; Total Cells Counted 100
--- NOTE | 2016-11-29 12:51 | PN ---
DATE OF SERVICE: 11/29/2016 Patient has no chest pain, less shortness of breath, less cough. On physical examination, respiratory rate 16, pulse rate of 77, temperature 96.3, blood pressure 130/67, O2 sat on room air is 91%. HEENT is unremarkable. Chest reveals breath sounds. No wheeze. Cardiovascular system reveals an S1, S2. Abdomen is soft. There is no edema. White count is 2.1, hemoglobin of 8.5. Platelet count is 52,000. IMPRESSION: 1. Acute gastrointestinal bleed. 2. Asthma, chronic obstructive pulmonary disease with acute exacerbation. 3. Pancytopenia. 4. Coronary artery disease. At this point in time, from a pulmonary standpoint, continue Singulair, bronchodilators, aerosolized steroids. Avoid IV steroids. Increase his activity levels.
--- NOTE | 2016-11-29 18:05 | P.PN ---
Subjective Patient is a 76-year-old male with multiple medical problems who presented to [facility] due to worsening shortness of breath. Patient was also having black stools, he has been followed by Dr. Mariel Burnham, he had evidence of anemia and low platelet counts he was referred to Dr. Sorto, who saw him once as outpatient. Patient also has known history of coronary artery disease and had previous angioplasty with stent placement he is maintained on aspirin and Plavix as outpatient. Hemoglobin on presentation was down to 5.9, patient was admitted to intensive care unit, red blood cell transfusion was requested Consultation for gastroenterology, critical care, cardiology and hematology were initiated. Today patient underwent EGD, colonoscopy was polypectomy, and bone marrow biopsy. Objective - Vital Signs Vital signs: Vital Signs Temp 96.7 F L 11/29/16 15:00 Pulse 76 11/29/16 15:00 Resp 16 11/29/16 16:00 BP 107/59 11/29/16 15:00 Pulse Ox 93 L 11/29/16 15:00 Intake & Output 11/28/16 11/29/16 11/29/16 18:59 06:59 18:59 Intake Total 120 300 360 Output Total 300 300 Balance -180 300 60 Weight 99.6 kg 99.6 kg Intake: Oral 120 300 360 Output: Urine 300 300 Other: Voiding Method Toilet Toilet Toilet Urinal Urinal Urinal # Voids 1 2 2 # Bowel Movements 2 - Exam In general patient is alert and oriented 3 in no apparent distress HEENT head normocephalic and atraumatic Neck is supple no JVD no goiter no lymphadenopathy Chest is clear to auscultation no wheezing Cardiac exam reveals regular heart sounds no gallops no murmurs Abdomen is soft nontender no organomegaly Extremity exam reveals no edema no cyanosis or clubbing Skin exam reveals no rashes or ecchymoses Neurological examination reveals no gross focal deficit - Labs CBC & Chem 7: 11/29/16 08:50 11/29/16 08:50 Labs: Abnormal Lab Results - Last 24 Hours (Table) 11/29/16 11/29/16 Range/Units 08:50 08:50 WBC 2.1 L (3.8-10.6) k/uL RBC 2.73 L (4.30-5.90) m/uL Hgb 8.5 L (13.0-17.5) gm/dL Hct 29.5 L (39.0-53.0) % MCV 108.0 H (80.0-100.0) fL MCHC 29.0 L (31.0-37.0) g/dL RDW 20.7 H (11.5-15.5) % Plt Count 52 L (150-450) k/uL Neutrophils # (Manual) 0.7 L (1.3-7.7) k/uL Nucleated RBCs 1 H (0-0) /100 WBC Potassium 3.3 L (3.5-5.1) mmol/L Chloride 114 H (98-107) mmol/L Carbon Dioxide 18 L (22-30) mmol/L BUN 6 L (9-20) mg/dL Glucose 137 H (74-99) mg/dL Total Protein 5.3 L (6.3-8.2) g/dL Albumin 2.6 L (3.5-5.0) g/dL Assessment and Plan Plan: #1 severe shortness of breath multifactorial, related to severe anemia, underlying history of coronary artery disease, at this time patient has received 2 units of red blood cell transfusion consultation for hematology was initiated #2 coronary artery disease with previous angioplasty and stent placement, cardiology consultation was requested patient was evaluated by Dr. Graham #3 severe anemia, patient is having black tarry stool possible upper GI bleeding also patient had chronic anemia with thrombocytopenia hematology evaluation was requested, patient underwent EGD, colonoscopy with polypectomy and bone marrow biopsy #4 underlying history of hypertension well-controlled #5 underlying history of hyperlipidemia #6 underlying history of rheumatoid arthritis Patient underwent EGD and colonoscopy with Dr. 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 Patient is stable no evidence of any further GI bleed Monitor till tomorrow if stable will discharge to home
[2016-11-29] MEDS: MONTELUKAST 10 MG TAB PO SCH (20:39)
[2016-11-30 08:24] LABS: ALT 26 U/L (21-72); AST 20 U/L (17-59); Alkaline Phosphatase 64 U/L (38-126); Anion Gap 7 mmol/L; Blood Urea Nitrogen 7 mg/dL (9-20); Calcium 8.5 mg/dL (8.4-10.2); Carbon Dioxide 26 mmol/L (22-30); Chloride 111 mmol/L (98-107); Glucose 93 mg/dL (74-99); Non-African American GFR(MDRD) >60 (>60 ml/min/1.73 sqM); Potassium 3.9 mmol/L (3.5-5.1); Sodium 144 mmol/L (137-145); Total Bilirubin 0.9 mg/dL (0.2-1.3); Total Protein 5.3 g/dL (6.3-8.2)
[2016-11-30] MEDS: IPRATROPIUM-ALBUTEROL 3 ML NEB INHALATION SCH ×2 (08:37→12:36)
[2016-11-30] MEDS: BUDESONIDE 0.5 MG/2 ML NEBU INHALATION SCH (08:37)
[2016-11-30 08:47] LABS: Anisocytosis Slight; CH 31.3; CHCM 29.9; HCT 29.2 % (39.0-53.0); HGB 8.6 gm/dL (13.0-17.5); Hypochromasia Marked; MCH 31.5 pg (25.0-35.0); MCHC 29.6 g/dL (31.0-37.0); MCV 106.6 fL (80.0-100.0); Macrocytosis Marked; Poikilocytosis Marked; RBC 2.74 m/uL (4.30-5.90); RDW 19.7 % (11.5-15.5); WBC 2.1 k/uL (3.8-10.6); WBC (Perox) 2.01
[2016-11-30] MEDS: ATORVASTATIN 80 MG TAB PO SCH (08:59)
[2016-11-30] MEDS: ASPIRIN 325 MG TAB PO SCH (08:59)
[2016-11-30] MEDS: PANTOPRAZOLE 40 MG TABLET PO SCH (08:59)
[2016-11-30] MEDS ORDERED: MAGNESIUM SULFATE-D5W PMX 1 GM in DEXTROSE/WATER 1 100ML.BAG IVPB SCH (10:00)
[2016-11-30 10:25] LABS: Add Differential Manual Differential
[2016-11-30 10:28] LABS: Nucleated Red Blood Cells 1 /100 WBC (0-0); Total Cells Counted 100
[2016-11-30 10:29] LABS: Polychromasia Present
[2016-11-30 10:44] VITALS: BP 116/68; PULSE 83; RESP 16; TEMP 97.3
--- NOTE | 2016-11-30 11:21 | P.DS ---
Providers Date of admission: 11/24/16 21:37 Expected date of discharge: 11/30/16 Attending physician: Cindy Cervantes Consults: 11/24/16 23:12 Consult Physician Urgent Consulting Provider: Mahendra Mattson Consult Reason/Comments: gib Do you want consulting provider notified?: Yes 11/25/16 00:10 Consult Physician Urgent Consulting Provider: Chelsi Santos Consult Reason/Comments: icu Do you want consulting provider notified?: Yes 11/25/16 13:38 Consult Physician Stat Consulting Provider: Cheko Sorto Consult Reason/Comments: anemia, low platelets Do you want consulting provider notified?: Yes Primary care physician: [facility] Course: Discharge diagnosis 1. 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 Nicki Bajwa. Patient hemoglobin at discharge is 8.6. Biopsies were taken during endoscopy. Patient follow-up with GI service outpatient patient require blood transfusions during this admission 2. Shortness of breath likely secondary to patient's severe anemia 3. Pancytopenia: Seen by hematology. Status post bone marrow biopsy. Patient did require blood transfusions and platelet transfusions during this admission. WBC is 2.1 hemoglobin 8.6 platelets 44 at discharge. Patient will follow-up with hematology in the office in one week 4. Coronary artery disease with previous angioplasty and stent placement. Evaluated by cardiology 5. Essential Hypertension 6. Hyperlipidemia 7. Rheumatoid arthritis 7. Acute COPD exacerbation seen by pulmonary service treated with breathing treatments. Has improved. Hospital course This is a 76-year-old male who presented to the hospital with worsening shortness of breath. He had evidence of black tarry stools at home. On presentation he had a hemoglobin of 5.9 he also had low platelets. He was initially admitted to the ICU. GI service, cardiology and hematology were consulted. Patient did require blood transfusion and platelet transfusion. He underwent EGD and colonoscopy. There was angiodysplasia noted at the duodenum with losing blood. Patient was treated endoscopically. He's had no further bleeding. Hemoglobin has been stable at 8.6. He'll follow up with GI service to review biopsy results in the outpatient setting. Patient also had evidence of pancytopenia which may be may related to a bone marrow disorder. Underwent bone marrow biopsy. And will follow-up with hematology for further results. Due to patient's anemia he has been off of his Plavix at this time we'll continue an aspirin 81 mg daily. Also his iron has been increased to twice a day. He'll go home with Colace to help prevent any constipation issues. Patient's symptoms have improved. He is medically stable for discharge. He'll follow up with consulting physicians for further biopsy results. Recommend checking a CBC in 1 week. I performed an examination of the patient and discussed their management with the physician Value Stream Coach. I have reviewed the Physician Value Stream Coach's notes and agree with the documented findings and plan of care Patient Condition at Discharge: Stable Plan - Discharge Summary New Discharge Prescriptions: Docusate [Colace] 100 mg PO DAILY #30 capsule Ferrous Sulfate [Iron (65 MG Elemental)] 325 mg PO BID #60 tab Pantoprazole [Protonix] 40 mg PO DAILY #15 tablet.dr Discharge Medication List Aspirin EC [Ecotrin Low Dose] 81 mg PO DAILY 01/09/16 [History] Ergocalciferol (Vitamin D2) [Drisdol] 50,000 unit PO TH 01/09/16 [History] Folic Acid 1 mg PO DAILY 01/09/16 [History] Montelukast [Singulair] 10 mg PO DAILY 01/09/16 [History] Multivitamins, Thera [Multivitamin (formulary)] 1 tab PO DAILY 01/09/16 [History ] Metoprolol Succinate (ER) [Toprol XL] 25 mg PO DAILY #30 tab.er.24h 01/13/16 [Rx ] Albuterol Nebulized [Ventolin Nebulized] 2.5 mg INHALATION RT-QID 11/24/16 [ History] Atorvastatin [Lipitor] 80 mg PO DAILY 11/24/16 [History] Fluticasone/Vilanterol [Breo Ellipta 100-25 Mcg Inhaler] 1 puff INHALATION RT- DAILY 11/24/16 [History] Ipratropium Nebulized [Atrovent Nebulized] 0.5 mg INHALATION RT-QID 11/24/16 [ History] Ipratropium-Albuterol Nebulize [Duoneb 0.5 mg-3 mg/3 ml Soln] 3 ml INHALATION RT -QID 11/24/16 [History] buPROPion SR [Wellbutrin SR] 150 mg PO BID 11/24/16 [History] Docusate [Colace] 100 mg PO DAILY #30 capsule 11/30/16 [Rx] Ferrous Sulfate [Iron (65 MG Elemental)] 325 mg PO BID #60 tab 11/30/16 [Rx] Pantoprazole [Protonix] 40 mg PO DAILY #15 tablet. 11/30/16 [Rx] Follow up Appointment(s)/Referral(s): Mariel Burnham DO [Primary Care Provider] - 1 Week Cheko Sorto MD [STAFF PHYSICIAN] - 1 Week Nicki Farrell MD [STAFF PHYSICIAN] - 1 Week Patient Instructions/Handouts: Pancytopenia (DC) Activity/Diet/Wound Care/Special Instructions: Diet: regular Activity: as tolerated check CBC in 1 week Discharge Disposition: HOME SELF-CARE
[2016-12-01] MEDS ORDERED: ASPIRIN 81 MG CHEW PO SCH (09:00)
== END 2016-11-30 13:29 | disposition home or self-care (01) | DRG 377 ==
LOC: EC 20:50 → 6SEL 21:37 → 6ICU 11-25 00:03 → 4MS4W 11-26 18:13
PROVIDERS: ADMIT Internal Medicine; ATTEND Internal Medicine
PROC: 30233R1 Transfusion of Nonautologous Platelets into Peripheral Vein, Percutaneous Approach (ICD-10-PCS; 2016-11-25)
PROC: 30233N1 Transfusion of Nonautologous Red Blood Cells into Peripheral Vein, Percutaneous Approach (ICD-10-PCS; 2016-11-25)
PROC: 0W3P8ZZ Control Bleeding in Gastrointestinal Tract, Via Natural or Artificial Opening Endoscopic (ICD-10-PCS; principal; 2016-11-27 11:05)
PROC: 0DBP8ZX Excision of Rectum, Via Natural or Artificial Opening Endoscopic, Diagnostic (ICD-10-PCS; 2016-11-27 11:05)
PROC: 07DR3ZX Extraction of Iliac Bone Marrow, Percutaneous Approach, Diagnostic (ICD-10-PCS; 2016-11-27 11:05)
DX: K31.811 Angiodysplasia of stomach and duodenum with bleeding (principal); J96.01 Acute respiratory failure with hypoxia; R57.1 Hypovolemic shock; D61.818 Other pancytopenia; I25.82 Chronic total occlusion of coronary artery; D69.6 Thrombocytopenia, unspecified; I95.9 Hypotension, unspecified; I71.2 Thoracic aortic aneurysm, without rupture; D62 Acute posthemorrhagic anemia; J44.1 Chronic obstructive pulmonary disease with (acute) exacerbation; M06.9 Rheumatoid arthritis, unspecified; I10 Essential (primary) hypertension; I25.10 Atherosclerotic heart disease of native coronary artery without angina pectoris; R94.31 Abnormal electrocardiogram [ECG] [EKG]; R74.8 Abnormal levels of other serum enzymes; T49.1X6A Underdosing of antipruritics, initial encounter; T45.4X6A Underdosing of iron and its compounds, initial encounter; R91.1 Solitary pulmonary nodule; D75.89 Other specified diseases of blood and blood-forming organs; R07.9 Chest pain, unspecified; K62.1 Rectal polyp; K64.8 Other hemorrhoids; K57.30 Diverticulosis of large intestine without perforation or abscess without bleeding; R00.0 Tachycardia, unspecified; K59.00 Constipation, unspecified; R63.4 Abnormal weight loss; I25.2 Old myocardial infarction; E78.5 Hyperlipidemia, unspecified; R53.1 Weakness; Z95.5 Presence of coronary angioplasty implant and graft; Z82.49 Family history of ischemic heart disease and other diseases of the circulatory system; Z79.899 Other long term (current) drug therapy; Z87.891 Personal history of nicotine dependence; Z79.82 Long term (current) use of aspirin; Z79.02 Long term (current) use of antithrombotics/antiplatelets; Z79.51 Long term (current) use of inhaled steroids; Z71.3 Dietary counseling and surveillance; Z71.6 Tobacco abuse counseling; Z91.14 Patient's other noncompliance with medication regimen
CPT/HCPCS: 36415; 36430; 38221; 43255; 45385; 71010; 71275; 80048; 80053; 80061; 82550; 82553; 83690; 83735; 83880; 84100; 84484; 85025; 85379; 85610; 85730; 86850; 86900; 86901; 86920; 88305; 93005; 93306; 94640; 94760; 96360; 99291

== ENCOUNTER → 2016-12-07 | Outpatient (CLI) | payer MEDICARE ==
[2016-12-07 09:11] LABS: Anisocytosis Slight; CH 30.7; CHCM 29.4; HCT 32.1 % (39.0-53.0); HDW 4.39; HGB 9.3 gm/dL (13.0-17.5); Hypochromasia Marked; MCH 30.7 pg (25.0-35.0); MCV 105.8 fL (80.0-100.0); Macrocytosis Marked; Mean Platelet Volume 9.4; Poikilocytosis Moderate; RBC 3.03 m/uL (4.30-5.90); RDW 18.6 % (11.5-15.5)
[2016-12-07 09:21] LABS: WBC 1.8 k/uL (3.8-10.6)
== END | disposition home or self-care (01) ==
LOC: LABWHC1 08:29
PROVIDERS: ATTEND Internal Medicine
DX: D62 Acute posthemorrhagic anemia (principal); D69.6 Thrombocytopenia, unspecified
CPT/HCPCS: 36415; 85027

== ENCOUNTER → 2017-06-15 | Outpatient (CLI) | payer MEDICARE ==
--- NOTE | 2017-06-15 09:22 | FL ---
EXAMINATION TYPE: FL esophagus cervic/pharynx DATE OF EXAM: 06/15/2017 HISTORY: Globus sensation of the upper esophagus. History of distal esophageal bleeding cauterization . COMPARISON: NONE TECHNIQUE: A double contrast esophagram is performed utilizing air and barium. 2 minutes and 25 sec onds of fluoroscopy time was utilized with 50 images saved. FINDINGS: The esophagus shows delayed motility but normal emptying into the stomach through the gastroesophagea l junction with no stricture. No evidence of hiatal hernia is seen. Intraesophageal reflux is noted to the level of the mid thoracic esophagus as well as a blunted tertiary wave. No stricture is presen t. Moderate retention of the vallecular and piriform sinuses is present. Anterior osteophytes at C5-C 6 and C6-C7 creating impression upon the posterior esophagus at the level of the patient's globus sen sation. No significant gastroesophageal reflux was seen during real time performance of this study. IMPRESSION: 1. Moderate amount of retention within the vallecular and piriform sinuses near the level of the minnie ent's globus sensation. Speech therapy consultation may be of benefit. 2. Moderate anterior protruding bridging osteophytes at C5-C6 and C6-C7 creates impression upon the p osterior esophagus at the level the patient's globus sensation without significant narrowing or occlu mayra. 3. 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 4. No evidence of stricture or gastroesophageal reflux. No esophageal irregularity within the distal esophageal menopause at the site of prior cauterization.
== END | disposition home or self-care (01) ==
LOC: RADFLMAIN 07:39
PROVIDERS: ATTEND Surgery
DX: K21.9 Gastro-esophageal reflux disease without esophagitis (principal)
CPT/HCPCS: 74210

== ENCOUNTER 2018-04-04 06:45 | Day surgery (SDC) | payer MEDICARE ==
[2018-03-31 11:25] VITALS: BMI 23.0
[~2018-04-04 06:45] MED LIST: LACTATED RINGERS 1,000 ML IV SCH; LIDOCAINE 1% 20 ML VIAL (10MG/ML) FOR IV START INTRADERMA PRN
[2018-04-04 07:14] VITALS: RESP 16; TEMP 96
[2018-04-04] MEDS ORDERED: LIDOCAINE 1% INJ 10MG/ML (20 ML MDV) ONE (08:41)
[2018-04-04] MEDS ORDERED: PROPOFOL 10 MG/ML 20 ML VIAL IV ONE (08:41)
--- NOTE | 2018-04-04 09:08 | P.PCN ---
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 Worsening of anemia from baseline despite normal iron stores. Procedure done to check for progression of MDS Operative Findings: Adequate sample Description of Procedure: The procedure was discussed in detail with the patient in the office. He presented to the outpatient endoscopy suite where IV access and informed consent were obtained. He was then placed in the left lateral decubitus position. The area over both posterior iliac crest was cleaned and prepped with chlorhexidine and sterile draping. IV sedation was then initiated. Local anesthesia was admitted with lidocaine to the right posterior hilar crest. A Jamshidi needle was then inserted and bone marrow aspirate and biopsy obtained. The initial aspirate sample had scant spicules. Therefore another process was made with a more satisfactory aspirate sample obtained. On withdrawal of the needle hemostasis was easily achieved. Blood loss was minimal and recovery from sedation was satisfactory. He appeared to have tolerated the procedure well without any obvious immediate complications.
[2018-04-04 09:23] LABS: Anisocytosis Slight; Basophils % (A) 0 %; Eosinophils % (A) 2 %; HCT 31.1 % (39.0-53.0); HGB 9.4 gm/dL (13.0-17.5); Hypochromasia Marked; Lymphocytes # (A) 0.6 k/uL (1.0-4.8); Lymphocytes % (A) 63 %; MCH 30.7 pg (25.0-35.0); MCHC 30.2 g/dL (31.0-37.0); MCV 101.7 fL (80.0-100.0); Macrocytosis Moderate; Mean Platelet Volume 10.4; Monocytes % (A) 4 %; Neutrophils % (A) 29 %; Poikilocytosis Moderate; RBC 3.06 m/uL (4.30-5.90); RDW 19.8 % (11.5-15.5)
[2018-04-04 09:29] VITALS: BP 105/55; PULSE 55
[2018-04-04 09:35] LABS: Neutrophils # (A) 0.3 k/uL (1.3-7.7); Platelet Count 37 k/uL (150-450)
[2018-04-04] MEDS ORDERED: ACETAMINOPHEN TAB 325 MG TAB PO ONE (09:56)
[2018-04-04 10:30] LABS: Target Cells Present
[2018-04-04 10:31] LABS: RBC Fragments Present; Spherocytes Present
[2018-04-04 10:32] LABS: Polychromasia Present
== END 2018-04-04 10:01 | disposition home or self-care (01) ==
LOC: OR 06:45
PROVIDERS: ATTEND Internal Medicine Hematology & Oncology
DX: D69.6 Thrombocytopenia, unspecified (principal); D72.810 Lymphocytopenia; I25.10 Atherosclerotic heart disease of native coronary artery without angina pectoris; I10 Essential (primary) hypertension; Z87.891 Personal history of nicotine dependence; E78.5 Hyperlipidemia, unspecified; Z95.5 Presence of coronary angioplasty implant and graft; Z79.82 Long term (current) use of aspirin; Z79.899 Other long term (current) drug therapy; Z88.2 Allergy status to sulfonamides
CPT/HCPCS: 38222; 85025; J2001; J2704

== ENCOUNTER 2018-07-21 10:13 | Inpatient (IN) | payer MEDICARE ==
[2018-07-21] MEDS ORDERED: SODIUM CHLORIDE 0.9% 1,000 ML IV STA ×2 (10:36→12:32)
[2018-07-21 11:13] LABS: Albumin 3.1 g/dL (3.5-5.0); Calcium 8.8 mg/dL (8.4-10.2); Potassium 4.4 mmol/L (3.5-5.1); Total Bilirubin 1.7 mg/dL (0.2-1.3); Total Protein 6.3 g/dL (6.3-8.2)
[2018-07-21 11:15] LABS: Anisocytosis Slight; HCT 29.9 % (39.0-53.0); HGB 9.1 gm/dL (13.0-17.5); Hypochromasia Marked; MCHC 30.4 g/dL (31.0-37.0); MCV 98.5 fL (80.0-100.0); Macrocytosis Slight; Mean Platelet Volume 11.2; Poikilocytosis Slight; RBC 3.03 m/uL (4.30-5.90); RDW 18.5 % (11.5-15.5); WBC 31.4 k/uL (3.8-10.6)
[2018-07-21 11:16] LABS: INR 1.2 (<1.2); Partial Thromboplastin Time 26.6 sec (22.0-30.0); Prothrombin Time 12.7 sec (9.0-12.0)
[2018-07-21] MEDS ORDERED: LIDOCAINE 1% INJ 10MG/ML (20 ML MDV) SQ STA (11:21)
--- NOTE | 2018-07-21 11:23 | ED ---
General Adult HPI - General Source: EMS, RN notes reviewed Mode of arrival: EMS Limitations: no limitations <Benji Manuel - Last Filed: 07/21/18 12:42> <Dave Castanon - Last Filed: 07/21/18 15:53> - General Chief complaint: Fall Stated complaint: FALL Time Seen by Provider: 07/21/18 10:26 - History of Present Illness Initial comments: Patient 77-year-old male presented to the emergency room today with a chief complaint of a fall that occurred last night 10 PM. Patient states that he felt dizzy lightheaded and fell down hitting his head on a coffee table causing a laceration. Patient states is not on blood thinners. Denies any loss consciousness. Patient does admit to headache today. Patient lives at home with his who called EMS. EMS stating that was still active bleeding to laceration site this morning. Bleeding currently stopped at this time. Patient denies any other injury from the fall. Denies any other complaints currently. Patient denies any recent fever, chills, shortness of breath, chest pain, back pain, abdominal pain, numbness or tingling, dysuria or hematuria, visual changes, or any other complaints. (Benji Manuel) - Related Data Home Medications Medication Instructions Recorded Confirmed Ergocalciferol (Vitamin D2) 50,000 unit PO Q7D 01/09/16 07/21/18 [Drisdol] Folic Acid 1 mg PO HS 01/09/16 07/21/18 Metoprolol Succinate (ER) [Toprol 25 mg PO HS 05/12/17 07/21/18 XL] Atorvastatin [Lipitor] 80 mg PO DAILY 07/21/18 07/21/18 Famotidine [Pepcid] 20 mg PO DAILY 07/21/18 07/21/18 Allergies Allergy/AdvReac Type Severity Reaction Status Date / Time Sulfa (Sulfonamide Allergy tongue Verified 07/21/18 10:31 Antibiotics) swelling Review of Systems ROS Other: All systems not noted in ROS Statement are negative. <Benji Manuel - Last Filed: 07/21/18 12:42> ROS Other: All systems not noted in ROS Statement are negative. <Dave Castanon - Last Filed: 07/21/18 15:53> ROS Statement: Those systems with pertinent positive or pertinent negative responses have been documented in the HPI. Past Medical History Past Medical History: Blood Disorder, Hyperlipidemia, Hypertension, Myocardial Infarction ([place]), Rheumatoid Arthritis ([place]), Skin Disorder Additional Past Medical History / Comment(s): HX Chemo 2017, FOR MDS, REFRACTORY ANEMIA. BRUISING OF SKIN. Last Myocardial Infarction Date:: 1995 History of Any Multi-Drug Resistant Organisms: None Reported Past Surgical History: Heart Catheterization, Heart Catheterization With Stent, Tonsillectomy Additional Past Surgical History / Comment(s): Angioplasty 20 years ago, one cardiac stent. BONE MARROW BIOPSY. Past Anesthesia/Blood Transfusion Reactions: No Reported Reaction Date of Last Stent Placement:: 2015 Past Psychological History: No Psychological Hx Reported Smoking Status: Former smoker Past Alcohol Use History: None Reported Past Drug Use History: None Reported - Past Family History Mother Family Medical History: Myocardial Infarction ([place]) Sister(s) Family Medical History: Cancer <Benji Manuel - Last Filed: 07/21/18 12:42> General Exam Limitations: no limitations <Benji Manuel - Last Filed: 07/21/18 12:42> <Dave Castanon - Last Filed: 07/21/18 15:53> - General Exam Comments Initial Comments: General: The patient is awake and alert, in no distress, and does not appear acutely ill. Eye: Pupils are equal, round and reactive to light, extra-ocular movements are intact. No nystagmus. There is normal conjunctiva bilaterally. No signs of icterus. Ears, nose, mouth and throat: There are moist mucous membranes and no oral lesions. Neck: The neck is supple. Cardiovascular: There is a regular rate and rhythm. No murmur, rub or gallop is appreciated. Respiratory: Lungs are clear to auscultation, respirations are non-labored, breath sounds are equal. No wheezes, stridor, rales, or rhonchi. Gastrointestinal: Soft, non-distended, non-tender abdomen without masses or organomegaly noted. There is no rebound or guarding present. No CVA tenderness. Musculoskeletal: Normal ROM, no tenderness. Strength 5/5. Sensation intact. Pulses equal bilaterally 2+. Neurological: A&O x 3. CN II-XII intact, There are no obvious motor or sensory deficits. Coordination appears grossly intact. Speech is normal. Skin: Dry blood to the face. No rash. Psychiatric: Cooperative, appropriate mood & affect, normal judgment. (Benij Manuel) Vital Signs 07/21/18 07/21/18 07/21/18 10:24 10:29 10:30 Temperature 97.0 F L Pulse Rate 101 H 99 90 Respiratory 20 Rate Blood Pressure 99/41 99/61 O2 Sat by Pulse 97 Oximetry 07/21/18 07/21/18 07/21/18 10:40 10:50 11:00 Temperature Pulse Rate 93 93 Respiratory Rate Blood Pressure 108/67 95/67 95/67 O2 Sat by Pulse Oximetry 07/21/18 07/21/18 07/21/18 11:10 11:20 11:30 Temperature Pulse Rate 95 98 Respiratory Rate Blood Pressure 95/67 93/67 93/67 O2 Sat by Pulse 88 L 88 L Oximetry 07/21/18 07/21/18 07/21/18 11:34 11:40 11:50 Temperature Pulse Rate 96 98 Respiratory 16 Rate Blood Pressure 98/44 98/44 98/44 O2 Sat by Pulse 91 L 90 L 89 L Oximetry 07/21/18 07/21/18 07/21/18 12:00 12:10 12:20 Temperature Pulse Rate 95 93 96 Respiratory Rate Blood Pressure 98/44 116/69 116/69 O2 Sat by Pulse 95 88 L Oximetry 07/21/18 07/21/18 07/21/18 12:30 12:40 12:50 Temperature Pulse Rate 98 98 97 Respiratory Rate Blood Pressure 116/69 O2 Sat by Pulse 85 L 92 L Oximetry 07/21/18 07/21/18 07/21/18 13:00 13:01 13:10 Temperature Pulse Rate 93 93 88 Respiratory 18 Rate Blood Pressure 99/57 99/57 O2 Sat by Pulse 91 L 94 L 92 L Oximetry 07/21/18 07/21/18 07/21/18 13:20 13:30 13:40 Temperature Pulse Rate 91 88 89 Respiratory Rate Blood Pressure 99/57 99/57 85/37 O2 Sat by Pulse 94 L 91 L 93 L Oximetry 07/21/18 07/21/18 07/21/18 13:50 14:00 14:10 Temperature Pulse Rate 84 81 81 Respiratory Rate Blood Pressure 85/37 96/57 104/60 O2 Sat by Pulse 94 L 95 97 Oximetry 07/21/18 07/21/18 07/21/18 14:20 15:00 15:14 Temperature Pulse Rate 82 84 78 Respiratory 18 18 Rate Blood Pressure 94/50 88/46 91/51 O2 Sat by Pulse 97 94 L Oximetry 07/21/18 07/21/18 07/21/18 15:15 15:43 15:45 Temperature Pulse Rate 79 74 77 Respiratory 16 18 16 Rate Blood Pressure 87/49 86/56 91/44 O2 Sat by Pulse 93 L 93 L 93 L Oximetry Procedures <Benji Manuel - Last Filed: 07/21/18 12:42> <Dave Castanon - Last Filed: 07/21/18 15:53> - Procedures Initial comment: 2.5centimeter linear laceration above the right eyebrow area no active bleeding. The skin was anesthetized with 1% lidocaine. The laceration was then cleansed with Betadine and irrigated with normal saline. The wound was inspected , and there was no evidence of injury to deep structures. No foreign body was noted in the wound. A total of 6 skin sutures were placed utilizing 5-0 nylon. (Benji Manuel) Medical Decision Making - Lab Data Result diagrams: 07/21/18 10:30 07/21/18 10:30 <Benji Manuel - Last Filed: 07/21/18 12:42> - Lab Data Result diagrams: 07/21/18 10:30 07/21/18 10:30 <Dave Castanon - Last Filed: 07/21/18 15:53> - Medical Decision Making Patient 77-year-old male presented to the emergency room today by EMS with a chief complaint of a fall that occurred yesterday. Patient was dizzy lightheaded fell his head causing laceration. Patient's head CT and neck and facial bones reveal hematoma. Show possible sinus disease. Show degenerative changes of the neck. No other acute abnormalities. Patient's labs been reviewed does show acute renal failure. Does show 31,000 white count. Patient' s hemoglobin stable at 9. Patient troponin mildly elevated which appears to be chronic. Patient denies any chest pain. He does admit that he's had some cough congestion. Chest x-ray revealing patchy infiltrate. Patient started on antibiotics of azithromycin and Rocephin here in the emergency room. Concern for sepsis at 1232. Patient will be admitted to the hospital. Weight-based 30 mix per kilogram were given IV bolus of saline. The patient is aware the plan states understanding. (Benji Manuel) Patient initially presenting as fall with head trauma. This is evaluated by head CT, laceration repaired. Patient is found to have pneumonia as he has been complaining of some cough and dyspnea. He has a significantly elevated white count, after chest x-ray white count is obtained, lactic acid is obtained which is elevated 5.7. Patient receives IV hydration in the emergency department started on antibiotics for community acquired pneumonia. Case is discussed with the admitting physician Dr. Mann covering for Dr. Cervantes, Patient will be admitted to ICU for further treatment and evaluation (Dave Castanon) - Lab Data Lab Results 07/21/18 07/21/18 07/21/18 Range/Units 10:30 10:30 10:30 WBC 31.4 H (3.8-10.6) k/uL RBC 3.03 L (4.30-5.90) m/uL Hgb 9.1 L (13.0-17.5) gm/dL Hct 29.9 L (39.0-53.0) % MCV 98.5 (80.0-100.0) fL MCH 30.0 (25.0-35.0) pg MCHC 30.4 L (31.0-37.0) g/dL RDW 18.5 H (11.5-15.5) % Plt Count 53 L (150-450) k/uL Neutrophils % (Manual) 84 % Band Neutrophils % 4 % Lymphocytes % (Manual) 7 % Monocytes % (Manual) 3 % Metamyelocytes % 1 % Myelocytes % 3 % Neutrophils # (Manual) 27.60 H (1.3-7.7) k/uL Lymphocytes # (Manual) 2.20 (1.0-4.8) k/uL Monocytes # (Manual) 0.94 (0-1.0) k/uL Metamyelocytes # (Man) 0.31 H (0) k/uL Myelocytes # (Manual) 0.94 H (0) k/uL Nucleated RBCs 0 (0-0) /100 WBC Large Platelets Present Hypochromasia Marked Poikilocytosis Slight Anisocytosis Slight Macrocytosis Slight PT (9.0-12.0) sec INR (<1.2) APTT (22.0-30.0) sec Sodium 138 (137-145) mmol/L Potassium 4.4 (3.5-5.1) mmol/L Chloride 105 (98-107) mmol/L Carbon Dioxide 15 L (22-30) mmol/L Anion Gap 18 mmol/L BUN 49 H (9-20) mg/dL Creatinine 2.72 H (0.66-1.25) mg/dL Est GFR (CKD-EPI)AfAm 25 (>60 ml/min/1.73 sqM) Est GFR (CKD-EPI)NonAf 22 (>60 ml/min/1.73 sqM) Glucose 162 H (74-99) mg/dL Calcium 8.8 (8.4-10.2) mg/dL Total Bilirubin 1.7 H (0.2-1.3) mg/dL AST 44 (17-59) U/L ALT 19 L (21-72) U/L Alkaline Phosphatase 43 (38-126) U/L Total Creatine Kinase 184 H (55-170) U/L CK-MB (CK-2) 0.3 (0.0-2.4) ng/mL CK-MB (CK-2) Rel Index 0.2 Troponin I 0.046 H* (0.000-0.034) ng/mL Total Protein 6.3 (6.3-8.2) g/dL Albumin 3.1 L (3.5-5.0) g/dL 07/21/ Range/Units 10:30 WBC (3.8-10.6) k/uL RBC (4.30-5.90) m/uL Hgb (13.0-17.5) gm/dL Hct (39.0-53.0) % MCV (80.0-100.0) fL MCH (25.0-35.0) pg MCHC (31.0-37.0) g/dL RDW (11.5-15.5) % Plt Count (150-450) k/uL Neutrophils % (Manual) % Band Neutrophils % % Lymphocytes % (Manual) % Monocytes % (Manual) % Metamyelocytes % % Myelocytes % % Neutrophils # (Manual) (1.3-7.7) k/uL Lymphocytes # (Manual) (1.0-4.8) k/uL Monocytes # (Manual) (0-1.0) k/uL Metamyelocytes # (Man) (0) k/uL Myelocytes # (Manual) (0) k/uL Nucleated RBCs (0-0) /100 WBC Large Platelets Hypochromasia Poikilocytosis Anisocytosis Macrocytosis PT 12.7 H (9.0-12.0) sec INR 1.2 H (<1.2) APTT 26.6 (22.0-30.0) sec Sodium (137-145) mmol/L Potassium (3.5-5.1) mmol/L Chloride (98-107) mmol/L Carbon Dioxide (22-30) mmol/L Anion Gap mmol/L BUN (9-20) mg/dL Creatinine (0.66-1.25) mg/dL Est GFR (CKD-EPI)AfAm (>60 ml/min/1.73 sqM) Est GFR (CKD-EPI)NonAf (>60 ml/min/1.73 sqM) Glucose (74-99) mg/dL Calcium (8.4-10.2) mg/dL Total Bilirubin (0.2-1.3) mg/dL AST (17-59) U/L ALT (21-72) U/L Alkaline Phosphatase (38-126) U/L Total Creatine Kinase (55-170) U/L CK-MB (CK-2) (0.0-2.4) ng/mL CK-MB (CK-2) Rel Index Troponin I (0.000-0.034) ng/mL Total Protein (6.3-8.2) g/dL Albumin (3.5-5.0) g/dL Disposition Is patient prescribed a controlled substance at d/c from ED?: No Time of Disposition: 12:44 <Benji Manuel - Last Filed: 07/21/18 12:42> <Dave Castanon - Last Filed: 07/21/18 15:53> Clinical Impression: Fall, Facial laceration, Dizzy, CAP (community acquired pneumonia), Leukocytosis, Acute renal injury, Hypotension, Sepsis Disposition: ADMITTED IP TO THIS HOSP Condition: Stable Addendum entered and electronically signed by Benji Manuel PA-C 07/21/18 12: 48: EKG performed at 1032: Shows rhythm at 96 bpm. QRS 92. QT/QTc 442/558. No acute ST changes.
[2018-07-21 11:28] LABS: Band Neutrophils % 4 %; Metamyelocytes # (M) 0.31 k/uL (0); Metamyelocytes % 1 %; Monocytes # (M) 0.94 k/uL (0-1.0); Myelocytes # (M) 0.94 k/uL (0); Myelocytes % 3 %; Neutrophils % (M) 84 %; Nucleated Red Blood Cells 0 /100 WBC (0-0); Platelet Count 53 k/uL (150-450); Total Cells Counted 200
[2018-07-21 11:29] LABS: Large Platelets Present
--- NOTE | 2018-07-21 11:32 | CT ---
EXAMINATION TYPE: CT brain warner gutierrez DATE OF EXAM: 07/21/2018 COMPARISON: None HISTORY: 77-year-old male with pain after Fall CT DLP: 1375.8 mGycm Automated exposure control for dose reduction was used. Technique: Examination of the head was done in axial plane without intravenous contrast. Coronal and sagittal reconstructions performed. CT of the cervical spine was obtained in axial plane without intravenous injection of contrast mater ial. Coronal and sagittal reformatted images were obtained from the axial views for evaluation of f ractures, spinal alignment and canal. FINDINGS: Head: There is no evidence of acute intracranial hemorrhage, acute ischemic changes, mass, mass-effect, or extra-axial fluid collection. There is no effacement of cerebral sulci or basal subarachnoid cister ns. There is no hydrocephalus. There is no midline shift. Jewell-white matter distinction is preserv ed. Moderate focal mucosal thickening posterior right ethmoid air cells. Mastoid air cells well pneumatiz ed. There is focal soft tissue contusion along the medial right periorbital and right paramedian frontal region. No underlying calvarial fracture. Facial bones reported separately. Cervical spine: No cranial cervical junction abnormality, predental space widening, or prevertebral soft tissue swell ing. Degenerative changes of the C1 dens articulation. Moderate to advanced disc/endplate degenerative change from C5 through T1 levels with disc osteophyte complexes causing mild, possibly moderate spinal canal stenoses such as a C5-C6. Artifact from the p atient's shoulders limits assessment of the spinal canal. Facet and uncovertebral joint arthropathy, particularly on the right. Alignment is maintained. No acute fracture seen. Nonspecific heterotopic ossification left paramedian posterior mid neck. A cutaneous/subcutaneous 9 mm cystic lesion left paramedian posterior upper neck likely sebaceous cys t. Emphysematous change in the visualized upper lungs. At C3-C4, there is moderate to severe right neuroforaminal stenosis. At C5-C6, moderate to severe right and [id number] left neuroforaminal stenosis. At C6-C7, moderate to severe bilateral neuroforaminal stenosis. At C7-T1, moderate left and mild right neuroforaminal stenosis. Sagittal and coronal reformatted images confirm above findings. COMBINED IMPRESSION: 1. No acute intracranial abnormality seen. Right paramedian frontal scalp contusion. No underlying ca lvarial fracture. 2. No acute fracture or malalignment of the cervical spine. Moderate spondylotic change with variable neural foraminal and spinal canal stenoses as outlined above. 3. Facial bones reported separately.
[2018-07-21 11:36] LABS: Creatine Kinase MB 0.3 ng/mL (0.0-2.4)
--- NOTE | 2018-07-21 11:37 | CT ---
EXAMINATION TYPE: CT facial bones wo con DATE OF EXAM: 07/21/2018 COMPARISON: None HISTORY: 77-year-old male with a pain after Fall TECHNIQUE: Contiguous axial scanning of the facial bones without IV contrast. Coronal reconstructions performed. CT DLP: 457.4 mGycm Automated exposure control for dose reduction was used. FINDINGS: Patient is edentulous. Moderate focal mucosal thickening posterior right ethmoid air cells. Scattered trace mucosal thickening maxillary sinuses. Otherwise, paranasal sinuses are clear. Focal right paramedian frontal scalp contusion extending into the medial right supraorbital region. N o underlying orbital or facial bone fracture seen. Zygomatic arches, pterygoid plates, and mandible a ppear intact. No depressed or angulated nasal bone fracture. Orbits and globes appear intact. IMPRESSION: 1. ANTERIOR RIGHT PARAMEDIAN FRONTAL SCALP CONTUSION WITH CONTIGUOUS MEDIAL RIGHT SUPRAORBITAL SOFT T ISSUE CONTUSION. NO UNDERLYING ACUTE FACIAL BONE FRACTURE. 2. 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
[2018-07-21 11:54] LABS: Troponin I 0.046 ng/mL (0.000-0.034)
[2018-07-21] MEDS ORDERED: DIPH,PERTUS(ACELL)TETVAC-LF 0.5 ML VIAL IM ONE (12:12)
--- NOTE | 2018-07-21 12:28 | XR ---
EXAMINATION TYPE: XR chest 2V DATE OF EXAM: 07/21/2018 COMPARISON: NONE HISTORY: Shortness of breath TECHNIQUE: Frontal and lateral views of the chest are obtained. FINDINGS: Scattered senescent parenchymal changes noted. Hyperinflation compatible with COPD. Patchy basilar infiltrates. Correlate for pneumonia. Heart size is stable. Mediastinal structures are stable and grossly unremarkable. No evidence for hilar prominence. Degenerative changes dorsal spine. IMPRESSION: 1. Patchy basilar infiltrates. Correlate for pneumonia.
[2018-07-21] MEDS ORDERED: AZITHROMYCIN 500 MG in SODIUM CHLORIDE 0.9% 250 ML IVPB STA (12:32)
[2018-07-21] MEDS ORDERED: SODIUM CHLORIDE 0.9% 500 ML 300 ML IV STA (12:41)
[2018-07-21] MEDS ORDERED: PNEUMONIA PROTOCOL UTILIZED 1 EACH MISC PO PRN (12:46)
[2018-07-21] MEDS ORDERED: SODIUM CHLORIDE 0.9% 1,000 ML IV ONE ×2 (12:46→18:14)
[2018-07-21 17:04] LABS: Glucose,Whole Blood 137 mg/dL (75-99)
--- NOTE | 2018-07-21 18:39 | P.HPIM ---
History of Present Illness H&P Date: 07/21/18 Chief Complaint: Syncope, fall, hypovolemic shock, acute renal failure 77-year-old male seen eval examined in the ICU this patient just has been admitted into the hospital from the emergency department where he presented after a fall and a large laceration on the 400 which has been sutured now, patient has lost significant amount of blood as per EMS report however hemoglobin have been in a stable range is noted in the emergency department, data predominantly obtained from the patient it appears that around early last night patient fell down and he feels that he did not trip he just passed out transiently as he was trying to get up from the bed quickly and hit his for head he did wake up but exact details are not available he had intermittent oozing of the blood and eventually notified the EMS and he was brought into the hospital, 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 however no history of blood transfusion, patient baseline hemoglobins range of 9 , patient has been on beta blockers as well for his coronary artery disease with history of stent placement in the past, on specific questioning patient has no history of post ictal-like symptoms or history of seizure disorders she he also denies any chest pain or radiation of pain, he denies any cough or sputum production denies any weakness and the part of the body except generalized weakness Review of Systems All systems: negative Past Medical History Past Medical History: Blood Disorder, Hyperlipidemia, Hypertension, Myocardial Infarction ([place]), Rheumatoid Arthritis ([place]), Skin Disorder Additional Past Medical History / Comment(s): HX Chemo 2017, FOR MDS, REFRACTORY ANEMIA. BRUISING OF SKIN. Last Myocardial Infarction Date:: 1995 History of Any Multi-Drug Resistant Organisms: None Reported Past Surgical History: Heart Catheterization, Heart Catheterization With Stent, Tonsillectomy Additional Past Surgical History / Comment(s): Angioplasty 20 years ago, one cardiac stent. BONE MARROW BIOPSY. Past Anesthesia/Blood Transfusion Reactions: No Reported Reaction Date of Last Stent Placement:: 2015 Past Psychological History: No Psychological Hx Reported Smoking Status: Former smoker Past Alcohol Use History: None Reported Past Drug Use History: None Reported - Past Family History Mother Family Medical History: Myocardial Infarction ([place]) Sister(s) Family Medical History: Cancer Medications and Allergies Home Medications Medication Instructions Recorded Confirmed Type Ergocalciferol (Vitamin D2) 50,000 unit PO Q7D 01/09/16 07/21/18 History [Drisdol] Folic Acid 1 mg PO HS 01/09/16 07/21/18 History Metoprolol Succinate (ER) [Toprol 25 mg PO HS 05/12/17 07/21/18 History XL] Atorvastatin [Lipitor] 80 mg PO DAILY 07/21/18 07/21/18 History Famotidine [Pepcid] 20 mg PO DAILY 07/21/18 07/21/18 History Allergies Allergy/AdvReac Type Severity Reaction Status Date / Time Sulfa (Sulfonamide Allergy tongue Verified 07/21/18 10:31 Antibiotics) swelling Physical Exam Vitals: Vital Signs Temp Pulse Resp BP Pulse Ox 07/21/18 18:00 98.7 F 72 27 H 87/54 93 L 07/21/18 17:09 20 07/21/18 17:00 81 25 H 87/54 92 L 07/21/18 15:45 77 16 91/44 93 L 07/21/18 15:43 74 18 86/56 93 L 07/21/18 15:15 79 16 87/49 93 L 07/21/18 15:14 78 18 91/51 94 L 07/21/18 15:00 84 88/46 07/21/18 14:20 82 18 94/50 97 07/21/18 14:10 81 104/60 97 07/21/18 14:00 81 96/57 95 07/21/18 13:50 84 85/37 94 L 07/21/18 13:40 89 85/37 93 L 07/21/18 13:30 88 99/57 91 L 07/21/18 13:20 91 99/57 94 L 07/21/18 13:10 88 99/57 92 L 07/21/18 13:01 93 18 99/57 94 L 07/21/18 13:00 93 91 L 07/21/18 12:50 97 92 L 07/21/18 12:46 92 L 07/21/18 12:40 98 07/21/18 12:30 98 116/69 85 L 07/21/18 12:20 96 116/69 07/21/18 12:10 93 116/69 88 L 07/21/18 12:00 95 98/44 95 07/21/18 11:50 98 98/44 89 L 07/21/18 11:40 98/44 90 L 07/21/18 11:34 96 16 98/44 91 L 07/21/18 11:30 98 93/ 88 L 07/21/18 11:20 95 93/67 88 L 07/21/18 11:10 95/67 07/21/18 11:00 95/07/21/18 10:50 93 95/07/21/18 10:40 93 108/07/21/18 10:30 90 99/61 07/21/18 10:29 97.0 F L 99 20 99/41 97 07/21/18 10:24 101 H Intake and Output 07/21/18 07/21/18 07/21/18 06:59 14:59 22:59 Intake Total 1100 Output Total 175 Balance 925 Intake: IV 1100 Sodium Chloride 0.9% 1, 1100 000 ml @ 100 mls/hr IV . Q10H ONE Rx#:[id number] Output: Urine 175 Other: Weight 77.111 kg - Constitutional General appearance: average body habitus, cooperative, disheveled, mild distress - EENT Laceration at the 4 head has been repaired Eyes: EOMI, PERRLA, poor dentition, normal appearance ENT: normal oropharynx Ears: bilateral: normal - Neck Carotids: bilateral: upstroke normal, bruit absent Thyroid: bilateral: normal size - Respiratory Respiratory: bilateral: CTA - Cardiovascular Rhythm: regular Heart sounds: normal: S1, S2 - Gastrointestinal General gastrointestinal: normal bowel sounds, soft - Neurologic Neurologic: CNII-XII intact - Musculoskeletal Musculoskeletal: gait normal, strength equal bilaterally - Psychiatric Psychiatric: A&O x's 3, appropriate affect, intact judgment & insight Results CBC & Chem 7: 07/21/18 10:30 07/21/18 10:30 Labs: Abnormal Lab Results - Last 24 Hours (Table) 07/21/18 07/21/18 07/21/18 Range/Units 10:30 10:30 10:30 WBC 31.4 H (3.8-10.6) k/uL RBC 3.03 L (4.30-5.90) m/uL Hgb 9.1 L (13.0-17.5) gm/dL Hct 29.9 L (39.0-53.0) % MCHC 30.4 L (31.0-37.0) g/dL RDW 18.5 H (11.5-15.5) % Plt Count 53 L (150-450) k/uL Neutrophils # (Manual) 27.60 H (1.3-7.7) k/uL Metamyelocytes # (Man) 0.31 H (0) k/uL Myelocytes # (Manual) 0.94 H (0) k/uL PT (9.0-12.0) sec INR (<1.2) Carbon Dioxide 15 L (22-30) mmol/L BUN 49 H (9-20) mg/dL Creatinine 2.72 H (0.66-1.25) mg/dL Glucose 162 H (74-99) mg/dL POC Glucose (mg/dL) (75-99) mg/dL Plasma Lactic Acid Tripp (0.7-2.0) mmol/L Total Bilirubin 1.7 H (0.2-1.3) mg/dL ALT 19 L (21-72) U/L Total Creatine Kinase 184 H (55-170) U/L Troponin I 0.046 H* (0.000-0.034) ng/mL Albumin 3.1 L (3.5-5.0) g/dL 07/21/18 07/21/18 07/21/18 Range/Units 10:30 13:15 14:47 WBC (3.8-10.6) k/uL RBC (4.30-5.90) m/uL Hgb (13.0-17.5) gm/dL Hct (39.0-53.0) % MCHC (31.0-37.0) g/dL RDW (11.5-15.5) % Plt Count (150-450) k/uL Neutrophils # (Manual) (1.3-7.7) k/uL Metamyelocytes # (Man) (0) k/uL Myelocytes # (Manual) (0) k/uL PT 12.7 H (9.0-12.0) sec INR 1.2 H (<1.2) Carbon Dioxide (22-30) mmol/L BUN (9-20) mg/dL Creatinine (0.66-1.25) mg/dL Glucose (74-99) mg/dL POC Glucose (mg/dL) (75-99) mg/dL Plasma Lactic Acid Tripp 5.7 H* 4.2 H* (0.7-2.0) mmol/L Total Bilirubin (0.2-1.3) mg/dL ALT (21-72) U/L Total Creatine Kinase (55-170) U/L Troponin I (0.000-0.034) ng/mL Albumin (3.5-5.0) g/dL 07/21/18 Range/Units 16:52 WBC (3.8-10.6) k/uL RBC (4.30-5.90) m/uL Hgb (13.0-17.5) gm/dL Hct (39.0-53.0) % MCHC (31.0-37.0) g/dL RDW (11.5-15.5) % Plt Count (150-450) k/uL Neutrophils # (Manual) (1.3-7.7) k/uL Metamyelocytes # (Man) (0) k/uL Myelocytes # (Manual) (0) k/uL PT (9.0-12.0) sec INR (<1.2) Carbon Dioxide (22-30) mmol/L BUN (9-20) mg/dL Creatinine (0.66-1.25) mg/dL Glucose (74-99) mg/dL POC Glucose (mg/dL) 137 H (75-99) mg/dL Plasma Lactic Acid Tripp (0.7-2.0) mmol/L Total Bilirubin (0.2-1.3) mg/dL ALT (21-72) U/L Total Creatine Kinase (55-170) U/L Troponin I (0.000-0.034) ng/mL Albumin (3.5-5.0) g/dL Chest x-ray: report reviewed, image reviewed (Patchy bibasilar infiltrate possible developing pneumonia and findings suggestive of COPD as well, computed tomography scan of the head is unremarkable except some soft tissue swelling in the right periorbital area compatible with sutures and swelling on the forehead , CT of scan of the spine revealed some spinal stenosis C5-C6 level and the multiple foramen stenosis at all levels) Assessment and Plan Assessment: Sepsis associated with bilateral pneumonia Syncopal episode Acute renal failure Intravascular volume depletion and dehydration History of myelodysplastic disorder History of coronary artery disease and stent placement Trauma to 4 head related to fall status post suturing Plan: Aggressive fluid resuscitation Caicedo culture with the urine and blood and sputum if able to obtain Broad-spectrum antibiotics Vasopressors if map less than 65 Consulting cardiovascular disease Repeat labs x-rays tomorrow Further recommendations pending plan of care as per clinical response of the patient Time with Patient: Greater than 30
[2018-07-21 19:07] LABS: Appearance,Urine Cloudy (Clear); Bacteria,Urine Occasional /hpf; Bilirubin,Urine Negative (Negative); Blood,Urine Small (Negative); Color,Urine Yellow; Glucose,Urine (UA) Negative (Negative); Granular Casts,Urine 15 /lpf (0); Hyaline Casts,Urine 7 /lpf (0-2); Ketones,Urine Negative (Negative); Leukocyte Esterase,Urine Negative (Negative); Mucus,Urine Rare /hpf; Nitrite,Urine Negative (Negative); Protein,Urine 1+ (Negative); RBC,Urine 1 /hpf (0-5); Specific Gravity,Urine 1.017 (1.001-1.035); Squamous Epithelial Cell,Urine <1 /hpf (0-4); Urobilinogen,Urine <2.0 mg/dL (<2.0); WBC,Urine 4 /hpf (0-5)
[2018-07-22 05:40] LABS: Calcium 7.5 mg/dL (8.4-10.2); Magnesium 1.9 mg/dL (1.6-2.3); Phosphorus 3.3 mg/dL (2.5-4.5); Potassium 3.6 mmol/L (3.5-5.1)
[2018-07-22 05:44] LABS: Anisocytosis Slight; Basophils % (A) 0 %; Eosinophils # (A) 0.1 k/uL (0-0.7); Eosinophils % (A) 2 %; Hypochromasia Marked; Lymphocytes # (A) 0.6 k/uL (1.0-4.8); Lymphocytes % (A) 9 %; MCH 30.3 pg (25.0-35.0); MCHC 31.3 g/dL (31.0-37.0); MCV 96.7 fL (80.0-100.0); Macrocytosis Slight; Mean Platelet Volume 12.4; Monocytes # (A) 0.2 k/uL (0-1.0); Monocytes % (A) 3 %; Neutrophils # (A) 5.7 k/uL (1.3-7.7); Neutrophils % (A) 85 %; Poikilocytosis Slight; RBC 2.05 m/uL (4.30-5.90); WBC 6.7 k/uL (3.8-10.6)
[2018-07-22 06:11] LABS: HCT 19.8 % (39.0-53.0); HGB 6.2 gm/dL (13.0-17.5); Platelet Count 25 k/uL (150-450)
[2018-07-22] MEDS ORDERED: Magnesium Replacement Protocol 1 EACH MISC MISCELLANE PRN (06:50)
[2018-07-22] MEDS ORDERED: Potassium Replacement Protocol 1 EACH MISC MISCELLANE PRN ×2 (06:50→18:46)
[2018-07-22 07:04] LABS: Polychromasia Present
[2018-07-22 07:05] LABS: Large Platelets Present
[2018-07-22] MEDS ORDERED: POTASSIUM CHLORIDE ER 20 MEQ TAB.ER PO SCH (08:00)
[2018-07-22] MEDS: MAGNESIUM SULFATE-D5W PMX 1 GM in DEXTROSE/WATER 1 100ML.BAG IVPB SCH ×2 (08:16→09:15)
[2018-07-22] MEDS: AZITHROMYCIN 500 MG in SODIUM CHLORIDE 0.9% 250 ML IVPB SCH (09:13)
--- NOTE | 2018-07-22 09:23 | XR ---
EXAMINATION TYPE: XR chest 1V DATE OF EXAM: 07/22/2018 COMPARISON: 07/21/2018 INDICATION: Pneumonia TECHNIQUE: Single frontal view of the chest is obtained. FINDINGS: The heart size is normal. The pulmonary vasculature is normal. There is a developing infiltrate at the right lower lobe. Some mild infiltrate may be stable at the l eft base IMPRESSION: 1. Clinical correlation recommended for bibasilar infiltrates. Developing pneumonia at the right base may be present. Follow-up is recommended.
--- NOTE | 2018-07-22 10:44 | ECHOF ---
Referral Reason:pulmnary hypertension MEASUREMENTS -------- HEIGHT: 162.6 cm WEIGHT: 77.1 kg BP: RVIDd: 3.5 cm (< 3.3) IVSd: 1.4 cm (0.6 - 1.1) LVIDd: 4.1 cm (3.9 - 5.3) LVPWd: 1.3 cm (0.6 - 1.1) IVSs: 1.1 cm LVIDs: 3.7 cm LVPWs: 1.2 cm Ao Diam: 3.5 cm (2.0 - 3.7) AV Cusp: 1.6 cm (1.5 - 2.6) LA Diam: 3.4 cm (2.7 - 3.8) MV EXCURSION: 23.948 mm (> 18.000) MV EF SLOPE: 95 mm/s (70 - 150) EPSS: 0.4 cm MV E Ellis: 0.70 m/s MV DecT: 285 ms MV A Ellis: 0.77 m/s MV E/A Ratio: 0.91 RAP: 5.00 mmHg RVSP: 28.79 mmHg FINDINGS -------- Sinus rhythm. This was a technically adequate study. The left ventricular size is normal. There is mild concentric left ventricular hypertrophy. Overa ll left ventricular systolic function is normal with, an EF between 55 - 60 %. The right ventricle is normal in size. The left atrial size is normal. The right atrial size is normal. There is mild aortic valve sclerosis. There is no evidence of aortic regurgitation. Mild mitral annular calcification present. Mild mitral regurgitation is present. Mild tricuspid regurgitation present. There is no evidence of pulmonary hypertension. The right v entricular systolic pressure, as measured by Doppler, is 28.79mmHg. There is no pulmonic regurgitation present. The aortic root size is normal. There is no pericardial effusion. CONCLUSIONS -------- 1. The left ventricular size is normal. 2. There is mild concentric left ventricular hypertrophy. 3. Overall left ventricular systolic function is normal with, an EF between 55 - 60 %. 4. The right ventricle is normal in size. 5. The left atrial size is normal. 6. The right atrial size is normal. 7. There is mild aortic valve sclerosis. 8. Mild mitral annular calcification present. 9. Mild mitral regurgitation is present. 10. Mild tricuspid regurgitation present. 11. There is no evidence of pulmonary hypertension. 12. The right ventricular systolic pressure, as measured by Doppler, is 28.79mmHg. 13. There is no pulmonic regurgitation present. 14. The aortic root size is normal. 15. There is no pericardial effusion. GRANTS OFFICER: Diana Fall RDCS
--- NOTE | 2018-07-22 12:42 | P.CRDCN ---
History of Present Illness History of present illness: This is Dr. Reinoso dictating a consult on this patient The patient was interviewed and examined by me IMPRESSION / ASSESSMENT: History of fall, hypotension, acute anemia requiring blood transfusions Known coronary artery disease and coronary stenting in the past No evidence for any arrhythmia so far PLAN: Observation only management of acute anemia, no cardiac workup specifically indicated at this point HPI 77-year-old male patient who fell yesterday. He became dizzy and he fell down hitting his head and had a laceration on the head. No other prior symptoms of any shortness of breath chest discomfort palpitations Hemoglobin severely reduced, acute anemia source unclear to me at this time Past history of coronary artery disease status post stenting but pain-free all along. Generalized weakness noted ROS: No fever chills or rigors, no cough, phlegm or expectoration, no nausea, vomiting or diarrhea, no hematuria, dysuria, no musculoskeletal complaints, no strokes or seizures, no skin lesions. EXAMINATION On examination he is afebrile at 97.8F, pulse rate 60s and 70s sinus Blood pressure 90 mmHg systolic REVIEW OF LABS, ECG Chest x-ray shows patchy basilar infiltrates possible pneumonitis Twelve-lead ECG shows sinus rhythm at 96 beats a minute no definite ST-T abnormalities narrow QRS normal OK interval. The computer read out often accelerated junctional rhythm is an error. 2-D echo and Doppler study shows preserved LV size and systolic function Past Medical History Past Medical History: Blood Disorder, Hyperlipidemia, Hypertension, Myocardial Infarction ([place]), Pneumonia, Rheumatoid Arthritis ([place]), Skin Disorder Additional Past Medical History / Comment(s): HX Chemo 2017 FOR MDS , REFRACTORY ANEMIA."past blood transfusion and iron infusion" BRUISING OF SKIN. past exposure to asbestoes while in [employer] Last Myocardial Infarction Date:: 1995 History of Any Multi-Drug Resistant Organisms: None Reported Past Surgical History: Heart Catheterization, Heart Catheterization With Stent, Tonsillectomy Additional Past Surgical History / Comment(s): Angioplasty 20 years ago, one cardiac stent. BONE MARROW BIOPSY.2016 and 2017 Past Anesthesia/Blood Transfusion Reactions: No Reported Reaction Additional Past Anesthesia/Blood Transfusion Reaction / Comment(s): past blood transfusion-pt denies any reaction to it Date of Last Stent Placement:: 2015 Smoking Status: Former smoker - Past Family History Mother Family Medical History: Myocardial Infarction ([place]) Sister(s) Family Medical History: Cancer Father Family Medical History: Cancer Additional Family Medical History / Comment(s): ? lung cancer Medications and Allergies Home Medications Medication Instructions Recorded Confirmed Type Ergocalciferol (Vitamin D2) 50,000 unit PO Q7D 01/09/16 07/21/18 History [Drisdol] Folic Acid 1 mg PO HS 01/09/16 07/21/18 History Metoprolol Succinate (ER) [Toprol 25 mg PO HS 05/12/17 07/21/18 History XL] Atorvastatin [Lipitor] 80 mg PO DAILY 07/21/18 07/21/18 History Famotidine [Pepcid] 20 mg PO DAILY 07/21/18 07/21/18 History Allergies Allergy/AdvReac Type Severity Reaction Status Date / Time Sulfa (Sulfonamide Allergy tongue Verified 07/21/18 10:31 Antibiotics) swelling Physical Exam Vitals: Vital Signs Temp Pulse Resp BP Pulse Ox 07/22/18 12:26 97.8 F 72 17 90/57 95 07/22/18 12:00 98.1 F 66 24 89/58 97 07/22/18 11:55 97.8 F 71 17 92/56 95 07/22/18 11:54 97.8 F 69 17 89/58 96 07/22/18 11:00 78 23 84/56 97 07/22/18 10:44 97.8 F 75 19 90/54 97 07/22/18 10:14 98.1 F 72 15 82/47 95 07/22/18 10:04 97.8 F 72 16 80/49 94 L 07/22/18 10:00 73 21 83/46 94 L 07/22/18 09:00 78 14 91/49 95 07/22/18 08:00 98.1 F 79 23 87/47 94 L 07/22/18 07:00 80 24 81/50 96 07/22/18 06:00 77 23 87/53 94 L 07/22/18 05:00 78 14 84/51 94 L 07/22/18 04:00 98.6 F 82 22 94/63 96 07/22/18 03:00 87 34 H 98/52 94 L 07/22/18 02:00 85 24 83/54 94 L 07/22/18 01:00 86 26 H 87/48 96 07/22/18 00:00 98.7 F 88 23 96/52 97 07/21/18 23:57 89 23 96/52 95 07/21/18 23:00 90 23 86/52 93 L 07/21/18 22:00 89 25 H 94/51 91 L 07/21/18 21:00 80 24 98/49 92 L 07/21/18 20:00 97.9 F 75 23 98/49 95 07/21/18 19:00 73 20 87/54 98 07/21/18 18:00 98.7 F 72 27 H 87/54 93 L 07/21/18 17:09 20 07/21/18 17:00 81 25 H 87/54 92 L 07/21/18 15:45 77 16 91/44 93 L 07/21/18 15:43 74 18 86/56 93 L 07/21/18 15:15 79 16 87/49 93 L 07/21/18 15:14 78 18 91/51 94 L 07/21/18 15:00 84 88/46 07/21/18 14:20 82 18 94/50 97 07/21/18 14:10 81 104/60 97 07/21/18 14:00 81 96/57 95 07/21/18 13:50 84 85/37 94 L 07/21/18 13:40 89 85/37 93 L 07/21/18 13:30 88 99/57 91 L 07/21/18 13:20 91 99/57 94 L 07/21/18 13:10 88 99/57 92 L 07/21/18 13:01 93 18 99/57 94 L 07/21/18 13:00 93 91 L 07/21/18 12:50 97 92 L 07/21/18 12:46 92 L Intake and Output 07/21/18 07/22/18 07/22/18 22:59 06:59 14:59 Intake Total 3469 120 9760 Output Total 475 775 500 Balance 1025 25 710 Intake: IV 1500 800 900 Azithromycin 500 mg In 250 Sodium Chloride 0.9% 250 ml @ 250 mls/hr IVPB DAILY [facility] Rx#:[id number] Sodium Chloride 0.9% 1, 1500 800 600 000 ml @ 100 mls/hr IV . Q10H ONE Rx#:[id number] cefTRIAXone 1,000 mg In 50 Sodium Chloride 0.9% 50 ml @ 100 mls/hr IVPB Q24HR [facility] Rx#:[id number] Blood Product 310 Rc As-1 Unit 0 [id number] Rc As-1 Unit 310 [id number] Output: Urine 475 775 500 Other: Voiding Method Urinal # Voids 0 1 2 Weight 80.3 kg Results 07/22/18 04:24 07/22/18 04:24 CBC 07/22/18 Range/Units 04:24 WBC 6.7 (3.8-10.6) k/uL RBC 2.05 L (4.30-5.90) m/uL Hgb 6.2 L* D (13.0-17.5) gm/dL Hct 19.8 L* (39.0-53.0) % Plt Count 25 L D (150-450) k/uL Comprehensive Metabolic Panel 07/22/18 Range/Units 04:24 Sodium 137 (137-145) mmol/L Potassium 3.6 (3.5-5.1) mmol/L Chloride 110 H (98-107) mmol/L Carbon Dioxide 20 L (22-30) mmol/L BUN 40 H (9-20) mg/dL Creatinine 1.53 H (0.66-1.25) mg/dL Glucose 101 H (74-99) mg/dL Calcium 7.5 L (8.4-10.2) mg/dL Current Medications Generic Name Dose Route Start Last Admin Trade Name Freq PRN Reason Stop Dose Admin Azithromycin 500 mg/ Sodium 250 mls @ 250 mls/hr 07/22/18 09:00 07/22/18 09: 13 Chloride IVPB 250 mls/hr DAILY [facility] Administration Ceftriaxone Sodium 1,000 mg/ 50 mls @ 100 mls/hr 07/22/18 09:00 07/22/18 08: 14 Sodium Chloride IVPB 100 mls/hr Q24HR [facility] Administration Miscellaneous Information 1 each 07/21/18 12:46 Pneumonia Protocol Utilized PO ONCE PRN Per Protocol Miscellaneous Information 1 each 07/22/18 06:50 Magnesium Per Protocol MISCELLANE DAILY PRN Per Protocol Protocol Miscellaneous Information 1 each 07/22/18 06:50 Potassium Per Protocol MISCELLANE DAILY PRN Per Protocol Protocol Intake and Output 07/21/18 07/22/1807/22/18 22:59 06:59 14:59 Intake Total 0456 109 0808 Output Total 475 775 500 Balance 1025 25 710 Intake: IV 1500 800 900 Azithromycin 500 mg In 250 Sodium Chloride 0.9% 250 ml @ 250 mls/hr IVPB DAILY [facility] Rx#:[id number] Sodium Chloride 0.9% 1, 1500 800 600 000 ml @ 100 mls/hr IV . Q10H ONE Rx#:[id number] cefTRIAXone 1,000 mg In 50 Sodium Chloride 0.9% 50 ml @ 100 mls/hr IVPB Q24HR [facility] Rx#:[id number] Blood Product 310 As-1 Unit 0 [id number] Rc As-1 Unit 310 [id number] Output: Urine 475 775 500 Other: Voiding Method Urinal # Voids 0 1 2 Weight 80.3 kg 07/22/18 04:24 07/22/18 04:24
[2018-07-22] MEDS ORDERED: FUROSEMIDE 10 MG/ML 4 ML VIAL IV ONE (14:30)
--- NOTE | 2018-07-22 14:46 | P.CONS ---
History of Present Illness - Reason for Consult Consult date: 07/22/18 Requesting physician: Benji Manuel - Chief Complaint fall with injury - History of Present Illness Mr. Whitehead is a very pleasant male pt of Dr. Sorto who has been diagnosed with MDS currently awaiting BMT at [facility]. Pt had a fall at home after standing up quickly. He has repaired laceration to the right eye, facial bruising noted, no acute fractures on xrays, 1st CT of the head negative for intracranial bleeding. Pt denies vision changes, head ache, eye pain, nose bleeding, no other bleeding to report, as of note pt baseline Hgb is between 8 and 9, usually mild renal dysfunction-worse on admit. He noted a cough for a few days prior to fall, denied fevers, chills, CXR concerning for a pneumonia so , pt on abx. No other physical c/o on a 14 point ROS. Malignancy History: Pt has a history of treatment with MTX for inflammatory arthritis. In Jul 2016 his Hgb dropped. This was treated with holding MTX and starting iron. His Hgb did not recover so he was referred to Dr. Sorto mid-2016. Pt had denied any obvious bleeding or prior history of blood problems, he had been on ASA and Plavix after stent placement in 01/08, never had a colonoscopy, had a negative barium enema in early 2016. Work up at that time was negative. Pt was seen inpatient as a consult in 12/09 when admitted with melena. 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 Bone marrow was done during that admission, revealing MDS, 4.8 % blasts. Started Dacogen in 12/09, this had to be held after 5 cycles due to persistently low counts. Repeat bone marrow in showed no change. It was decided no treatment, just monitoring, his counts were in a safe range. He did well until his Hgb dropped to 5.6 06/21/17, EGD on 06/23/17 was negative, iron levels were reduced for which he has been followed and received parenteral supplementation PRN. His WBC showed a progressive decline in Mar 2018, bone marrow was repeated on 04/04/18, same dysplastic changes, blast increased to 8-9%, cytogenetics and FISH were negative. He was referred to [facility]. Options were supportive care, trial of Vidaza or BMT evaluation. Pt told me today that he is a candidate for BMT and plan it to proceed in Jul. Family contacted BMT navigator /nurse to report his hospitalization. Review of Systems 14 point ROS is negative except as stated in HPI Past Medical History Past Medical History: Cancer, Hyperlipidemia, Hypertension, Myocardial Infarction ([place]), Pneumonia, Rheumatoid Arthritis ([place]), Skin Disorder Additional Past Medical History / Comment(s): HX Chemo 2017 FOR MDS , REFRACTORY ANEMIA."past blood transfusion and iron infusion" BRUISING OF SKIN. past exposure to asbestoes while in [employer] Last Myocardial Infarction Date:: 1995 History of Any Multi-Drug Resistant Organisms: None Reported Past Surgical History: Heart Catheterization, Heart Catheterization With Stent, Tonsillectomy Additional Past Surgical History / Comment(s): Angioplasty 20 years ago, one cardiac stent. BONE MARROW BIOPSY.2016 and 2017 Past Anesthesia/Blood Transfusion Reactions: No Reported Reaction Additional Past Anesthesia/Blood Transfusion Reaction / Comm: past blood transfusion-pt denies any reaction to it Date of Last Stent Placement:: 2015 Past Psychological History: No Psychological Hx Reported Smoking Status: Former smoker Past Alcohol Use History: Unable to Obtain Past Drug Use History: None Reported - Past Family History Mother Family Medical History: Myocardial Infarction ([place]) Sister(s) Family Medical History: Cancer Father Family Medical History: Cancer Additional Family Medical History / Comment(s): ? lung cancer Medications and Allergies Home Medications Medication Instructions Recorded Confirmed Type Ergocalciferol (Vitamin D2) 50,000 unit PO Q7D 01/09/16 07/21/18 History [Drisdol] Folic Acid 1 mg PO HS 01/09/16 07/21/18 History Metoprolol Succinate (ER) [Toprol 25 mg PO HS 05/12/17 07/21/18 History XL] Atorvastatin [Lipitor] 80 mg PO DAILY 07/21/18 07/21/18 History Famotidine [Pepcid] 20 mg PO DAILY 07/21/18 07/21/18 History Allergies Allergy/AdvReac Type Severity Reaction Status Date / Time Sulfa (Sulfonamide Allergy tongue Verified 07/21/18 10:31 Antibiotics) swelling Physical Exam Vitals: Vital Signs Temp Pulse Resp BP Pulse Ox 07/22/18 12:36 98.3 F 70 15 95/55 97 07/22/18 12:26 97.8 F 72 17 90/57 95 12/28/18 12:00 98.1 F 66 24 89/58 97 07/22/18 11:55 97.8 F 71 17 92/56 95 07/22/18 11:54 97.8 F 69 17 89/58 96 07/22/18 11:00 78 23 84/56 97 07/22/18 10:44 97.8 F 75 19 90/54 97 07/22/18 10:14 98.1 F 72 15 82/47 95 07/22/18 10:04 97.8 F 72 16 80/49 94 L 07/22/18 10:00 73 21 83/46 94 L 07/22/18 09:00 78 14 91/49 95 07/22/18 08:00 98.1 F 79 23 87/47 94 L 07/22/18 07:00 80 24 81/50 96 07/22/18 06:00 77 23 87/53 94 L 07/22/18 05:00 78 14 84/51 94 L 07/22/18 04:00 98.6 F 82 22 94/63 96 07/22/18 03:00 87 34 H 98/52 94 L 07/22/18 02:00 85 24 83/54 94 L 07/22/18 01:00 86 26 H 87/48 96 07/22/18 00:00 98.7 F 88 23 96/52 97 07/21/18 23:57 89 23 96/52 95 07/21/18 23:00 90 23 86/52 93 L 07/21/18 22:00 89 25 H 94/51 91 L 07/21/18 21:00 80 24 98/49 92 L 07/21/18 20:00 97.9 F 75 23 98/49 95 07/21/18 19:00 73 20 87/54 98 07/21/18 18:00 98.7 F 72 27 H 87/54 93 L 07/21/18 17:09 20 07/21/18 17:00 81 25 H 87/54 92 L 07/21/18 15:45 77 16 91/44 93 L 07/21/18 15:43 74 18 86/56 93 L 07/21/18 15:15 79 16 87/49 93 L 07/21/18 15:14 78 18 91/51 94 L 07/21/18 15:00 84 88/46 07/21/18 14:20 82 18 94/50 97 07/21/18 14:10 81 104/60 97 07/21/18 14:00 81 96/57 95 07/21/18 13:50 84 85/37 94 L 07/21/18 13:40 89 85/37 93 L 07/21/18 13:30 88 99/57 91 L 07/21/18 13:20 91 99/57 94 L 07/21/18 13:10 88 99/57 92 L 07/21/18 13:01 93 18 99/57 94 L 07/21/18 13:00 93 91 L Intake and Output 07/21/18 07/22/18 07/22/18 22:59 06:59 14:59 Intake Total 0159 701 4112 Output Total 475 775 500 Balance 1025 25 710 Intake: IV 1500 800 900 Azithromycin 500 mg In 250 Sodium Chloride 0.9% 250 ml @ 250 mls/hr IVPB DAILY [facility] Rx#:[id number] Sodium Chloride 0.9% 1, 1500 800 600 000 ml @ 100 mls/hr IV . Q10H [facility] Rx#:[id number] cefTRIAXone 1,000 mg In 50 Sodium Chloride 0.9% 50 ml @ 100 mls/hr IVPB Q24HR [facility] Rx#:[id number] Blood Product 310 As-1 Unit 0 [id number] Rc As-1 Unit 310 [id number] Output: Urine 475 775 500 Other: Voiding Method Urinal # Voids 0 1 2 Weight 80.3 kg - Constitutional General appearance: average body habitus, cooperative, no acute distress - EENT Stitched laceration above right eye, bruise under right eye Eyes: anicteric sclerae, EOMI ENT: normal oropharynx - Neck Neck: no lymphadenopathy - Respiratory Respiratory: left: rhonchi (anterior) - Cardiovascular Heart sounds: normal: S1, S2 leg Peripheral Edema: bilateral: Trace - Gastrointestinal General gastrointestinal: no absent bowel sounds, no decreased bowel sounds, no distended, no hepatomegaly, no hyperactive bowel sounds, normal bowel sounds, no organomegaly, no rigid, no scaphoid, soft, no splenomegaly, no tenderness, no umbilical hernia, no ventral hernia - Neurologic Neurologic: CNII-XII intact - Musculoskeletal Musculoskeletal: strength equal bilaterally - Psychiatric Psychiatric: A&O x's 3, appropriate affect, intact judgment & insight Results CBC & Chem 7: 07/22/18 04:24 07/22/18 04:24 Labs: Abnormal Lab Results - Last 24 Hours (Table) 07/21/18 07/21/18 07/21/18 Range/Units 13:15 14:47 16:52 RBC (4.30-5.90) m/uL Hgb (13.0-17.5) gm/dL Hct (39.0-53.0) % RDW (11.5-15.5) % Plt Count (150-450) k/uL Lymphocytes # (1.0-4.8) k/uL Chloride (98-107) mmol/L Carbon Dioxide (22-30) mmol/L BUN (9-20) mg/dL Creatinine (0.66-1.25) mg/dL Glucose (74-99) mg/dL POC Glucose (mg/dL) 137 H (75-99) mg/dL Plasma Lactic Acid Tripp 5.7 H* 4.2 H* (0.7-2.0) mmol/L Calcium (8.4-10.2) mg/dL Urine Protein (Negative) Urine Blood (Negative) Urine Bacteria (None) /hpf Hyaline Casts (0-2) /lpf Urine Mucus (None) /hpf Crossmatch 07/21/18 07/22/18 07/22/18 Range/Units 17:05 04:24 04:24 RBC 2.05 L (4.30-5.90) m/uL Hgb 6.2 L* D (13.0-17.5) gm/dL Hct 19.8 L* (39.0-53.0) % RDW 18.0 H (11.5-15.5) % Plt Count 25 L D (150-450) k/uL Lymphocytes # 0.6 L (1.0-4.8) k/uL Chloride 110 H (98-107) mmol/L Carbon Dioxide 20 L (22-30) mmol/L BUN 40 H (9-20) mg/dL Creatinine 1.53 H (0.66-1.25) mg/dL Glucose 101 H (74-99) mg/dL POC Glucose (mg/dL) (75-99) mg/dL Plasma Lactic Acid Tripp (0.7-2.0) mmol/L Calcium 7.5 L (8.4-10.2) mg/dL Urine Protein 1+ H (Negative) Urine Blood Small H (Negative) Urine Bacteria Occasional H (None) /hpf Hyaline Casts 7 H (0-2) /lpf Urine Mucus Rare H (None) /hpf Crossmatch 07/22/18 Range/Units 08:30 RBC (4.30-5.90) m/uL Hgb (13.0-17.5) gm/dL Hct (39.0-53.0) % RDW (11.5-15.5) % Plt Count (150-450) k/uL Lymphocytes # (1.0-4.8) k/uL Chloride (98-107) mmol/L Carbon Dioxide (22-30) mmol/L BUN (9-20) mg/dL Creatinine (0.66-1.25) mg/dL Glucose (74-99) mg/dL POC Glucose (mg/dL) (75-99) mg/dL Plasma Lactic Acid Tripp (0.7-2.0) mmol/L Calcium (8.4-10.2) mg/dL Urine Protein (Negative) Urine Blood (Negative) Urine Bacteria (None) /hpf Hyaline Casts (0-2) /lpf Urine Mucus (None) /hpf Crossmatch See Detail Microbiology - Last 24 Hours (Table) 07/21/18 17:05 Urine Culture - Preliminary Urine,Voided Comments: ECHO report reviewed Chest x-ray: report reviewed CT Scan - head: report reviewed Assessment and Plan (1) MDS (myelodysplastic syndrome) Narrative/Plan: Pt is working with BMT team at [facility]. They will cont f/u as scheduled Current Visit: Yes Status: Acute Priority: High Code(s): D46.9 - MYELODYSPLASTIC SYNDROME, UNSPECIFIED SNOMED Code(s): 143683248 (2) Pancytopenia Narrative/Plan: Agree with PRBCs transfusion for Hgb <7. Please order irradiated, CMV negative blood products. Transfuse very conservatively. Platelets 25,000, pt baseline is in the 30-40,000 range. No asa, NSAIDs, anticoagulation. Close monitoring for bleeding. Please order irradiated, CMV negative blood products if needed. WBC/ANC adequate, no intervention at this time. Please, do not administer GCSF unless cleared with Hem/Onc Current Visit: Yes Status: Chronic Priority: High Code(s): D61.818 - OTHER PANCYTOPENIA SNOMED Code(s): 756182855
[2018-07-22] MEDS: IPRATROPIUM-ALBUTEROL 3 ML NEB INHALATION SCH ×2 (15:10→20:08)
--- NOTE | 2018-07-22 15:50 | P.PN ---
Subjective Progress Note Date: 07/22/18 (Critical care time spent 35 minutes) Principal diagnosis: Acute blood loss anemia, sepsis associated bilateral pneumonia, near syncope, acute renal failure, intravascular volume depletion and dehydration, history of myelodysplastic disorder, history of coronary artery disease with stent placement, trauma to the 4 head 07/22/2018, patient seen eval examined during the rounds his hemodynamic status remains marginal blood pressure continued to run on the lower side, patient has been resuscitated with crystalloid for over 3-1/2 L also on maintenance fluid, urine output has picked up now about 30-50 mL an hour, lobe and dropped down to 6.2 he is a scheduled to get 2 unit of packed RBC, during the blood transfusion patient was seen evaluated examined the hemodynamics slightly better, patient has good 2 peripheral IVs, shortness of breath is stable, patient will get the 40 mg of furosemide after second unit of blood pressure remains stable labs reviewed medications reviewed care plan discussed with the patient as well as sister present at bedside, patient is status post echocardiogram which revealed ejection fraction of 50-55% Objective - Vital Signs Vital signs: Vital Signs Temp 98.3 F 07/22/18 14:02 Pulse 70 07/22/18 15:18 Resp 16 07/22/18 15:00 BP 94/55 07/22/18 15:00 Pulse Ox 94 L 07/22/18 15:00 Intake & Output 07/21/18 07/22/18 07/22/18 18:59 06:59 18:59 Intake Total 1100 1200 2020 Output Total 175 1075 1325 Balance 925 125 695 Weight 77.111 kg 80.3 kg Intake: IV 1100 1200 1400 Azithromycin 500 mg In 250 Sodium Chloride 0.9% 250 ml @ 250 mls/hr IVPB DAILY [facility] Rx#:[id number] Magnesium Sulfate-D5w Pmx 200 1 gm In Dextrose/Water 1 100ml.bag @ 100 mls/hr IVPB Q1H [facility] Rx#: [id number] Sodium Chloride 0.9% 1, 1100 1200 900 000 ml @ 100 mls/hr IV . Q10H [facility] Rx#:[id number] cefTRIAXone 1,000 mg In 50 Sodium Chloride 0.9% 50 ml @ 100 mls/hr IVPB Q24HR [facility] Rx#:[id number] Blood Product 620 Rc As-1 Unit 310 [id number] Rc As-1 Unit 310 [id number] Output: Urine 175 1075 1325 Other: Voiding Method Urinal # Voids 1 2 - Exam - Constitutional General appearance: average body habitus, cooperative, disheveled, mild distress - EENT Laceration at the 4 head has been repaired Eyes: EOMI, PERRLA, poor dentition, normal appearance ENT: normal oropharynx Ears: bilateral: normal - Neck Carotids: bilateral: upstroke normal, bruit absent Thyroid: bilateral: normal size - Respiratory Respiratory: bilateral: CTA - Cardiovascular Rhythm: regular Heart sounds: normal: S1, S2 - Gastrointestinal General gastrointestinal: normal bowel sounds, soft - Neurologic Neurologic: CNII-XII intact - Musculoskeletal Musculoskeletal: gait normal, strength equal bilaterally - Psychiatric Psychiatric: A&O x's 3, appropriate affect, intact judgment & insight - Labs CBC & Chem 7: 07/22/18 04:24 07/22/18 04:24 Labs: Abnormal Lab Results - Last 24 Hours (Table) 07/21/18 07/21/18 07/22/18 Range/Units 16:52 17:05 04:24 RBC 2.05 L (4.30-5.90) m/uL Hgb 6.2 L* D (13.0-17.5) gm/dL Hct 19.8 L* (39.0-53.0) % RDW 18.0 H (11.5-15.5) % Plt Count 25 L D (150-450) k/uL Lymphocytes # 0.6 L (1.0-4.8) k/uL Chloride (98-107) mmol/L Carbon Dioxide (22-30) mmol/L BUN (9-20) mg/dL Creatinine (0.66-1.25) mg/dL Glucose (74-99) mg/dL POC Glucose (mg/dL) 137 H (75-99) mg/dL Calcium (8.4-10.2) mg/dL Urine Protein 1+ H (Negative) Urine Blood Small H (Negative) Urine Bacteria Occasional H (None) /hpf Hyaline Casts 7 H (0-2) /lpf Urine Mucus Rare H (None) /hpf Crossmatch 07/22/18 07/22/18 Range/Units 04:24 08:30 RBC (4.30-5.90) m/uL Hgb (13.0-17.5) gm/dL Hct (39.0-53.0) % RDW (11.5-15.5) % Plt Count (150-450) k/uL Lymphocytes # (1.0-4.8) k/uL Chloride 110 H (98-107) mmol/L Carbon Dioxide 20 L (22-30) mmol/L BUN 40 H (9-20) mg/dL Creatinine 1.53 H (0.66-1.25) mg/dL Glucose 101 H (74-99) mg/dL POC Glucose (mg/dL) (75-99) mg/dL Calcium 7.5 L (8.4-10.2) mg/dL Urine Protein (Negative) Urine Blood (Negative) Urine Bacteria (None) /hpf Hyaline Casts (0-2) /lpf Urine Mucus (None) /hpf Crossmatch See Detail Microbiology - Last 24 Hours (Table) 07/21/18 17:05 Urine Culture - Preliminary Urine,Voided - Imaging and Cardiology Chest x-ray: report reviewed, image reviewed (By basilar infiltrate still present) Assessment and Plan Assessment: Hypovolemic shock related to acute bleed from trauma to fore head laceration Sepsis associated with bilateral pneumonia Acute blood loss anemia Near Syncopal episode Acute renal failure Intravascular volume depletion and dehydration History of myelodysplastic disorder History of coronary artery disease and stent placement Trauma to 4 head related to fall status post suturing Plan: Aggressive fluid resuscitation Type crossmatch and transfuse 2 units of packed RBC Follow-up on Caicedo culture with the urine and blood and sputum if able to obtain Broad-spectrum antibiotics Vasopressors if map less than 65 Consulting cardiovascular disease Repeat labs x-rays tomorrow Further recommendations pending plan of care as per clinical response of the patient Time with Patient: Greater than 30
[2018-07-22 17:56] LABS: Anisocytosis Slight; HCT 27.2 % (39.0-53.0); Hypochromasia Moderate; MCH 31.1 pg (25.0-35.0); MCHC 32.7 g/dL (31.0-37.0); Macrocytosis Slight; Mean Platelet Volume 11.3; Poikilocytosis Moderate; RBC 2.87 m/uL (4.30-5.90); RDW 17.2 % (11.5-15.5); WBC 4.6 k/uL (3.8-10.6)
[2018-07-22 18:02] LABS: Platelet Count 26 k/uL (150-450)
[2018-07-22 18:03] LABS: Magnesium 2.2 mg/dL (1.6-2.3); Potassium 3.3 mmol/L (3.5-5.1)
[2018-07-22] MEDS: POTASSIUM CHLORIDE ER 20 MEQ TAB.ER PO SCH ×2 (18:52→20:38)
[2018-07-22] MEDS: BUDESONIDE 0.5 MG/2 ML NEBU INHALATION SCH (20:08)
[2018-07-22] MEDS: POTASSIUM CHLORIDE ER 10 MEQ TAB.ER.PRT PO SCH ×2 (20:36→20:38)
[2018-07-22 23:00] LABS: HGB 8.9 gm/dL (13.0-17.5)
[2018-07-23] MEDS: POTASSIUM CHLORIDE 10 MEQ in WATER FOR INJECTION 1 100ML.BAG IVPB SCH ×2 (01:32→03:12)
[2018-07-23] MEDS: SODIUM CHLORIDE 0.9% 1,000 ML IV SCH (01:36)
[2018-07-23 05:04] LABS: Anisocytosis Slight; Basophils % (A) 0 %; Eosinophils % (A) 1 %; HCT 25.5 % (39.0-53.0); Hypochromasia Moderate; Lymphocytes # (A) 0.5 k/uL (1.0-4.8); Lymphocytes % (A) 14 %; MCH 29.8 pg (25.0-35.0); MCHC 31.5 g/dL (31.0-37.0); MCV 94.7 fL (80.0-100.0); Mean Platelet Volume 12.4; Monocytes # (A) 0.1 k/uL (0-1.0); Monocytes % (A) 3 %; Neutrophils # (A) 2.6 k/uL (1.3-7.7); Neutrophils % (A) 80 %; Poikilocytosis Moderate; RBC 2.69 m/uL (4.30-5.90); RDW 17.1 % (11.5-15.5); WBC 3.3 k/uL (3.8-10.6)
[2018-07-23 05:13] LABS: Platelet Count 23 k/uL (150-450)
[2018-07-23 05:40] LABS: Magnesium 1.9 mg/dL (1.6-2.3); Phosphorus 3.2 mg/dL (2.5-4.5); Potassium 4.1 mmol/L (3.5-5.1)
[2018-07-23] MEDS: MAGNESIUM SULFATE-D5W PMX 1 GM in DEXTROSE/WATER 1 100ML.BAG IVPB SCH ×2 (06:28→08:03)
[2018-07-23] MEDS: BUDESONIDE 0.5 MG/2 ML NEBU INHALATION SCH ×2 (07:53→18:38)
[2018-07-23] MEDS: IPRATROPIUM-ALBUTEROL 3 ML NEB INHALATION SCH ×4 (07:53→18:38)
[2018-07-23] MEDS: FUROSEMIDE 10 MG/ML 2 ML VIAL IV SCH (08:05)
[2018-07-23] MEDS: AZITHROMYCIN 500 MG in SODIUM CHLORIDE 0.9% 250 ML IVPB SCH (08:47)
--- NOTE | 2018-07-23 09:16 | XR ---
EXAMINATION TYPE: XR chest 1V DATE OF EXAM: 07/23/2018 COMPARISON: 07/22/2018 INDICATION: Pneumonia TECHNIQUE: Single frontal view of the chest is obtained. FINDINGS: The heart size is normal. The pulmonary vasculature is normal. There is improving infiltrate in the right lower lobe. Some mild infiltrate may remain at the left ba se. Continued follow-up to complete clearing is recommended. IMPRESSION: 1. Resolving bibasilar infiltrates which can be compatible with resolving pneumonia. Continued follow -up is recommended.
--- NOTE | 2018-07-23 18:11 | P.PN ---
Subjective Progress Note Date: 07/23/18 Principal diagnosis: Fall with Head Trauma, MDS, Sepsis CBC is Stable today, Afebrile, Renal Function improving. Objective - Vital Signs Vital signs: Vital Signs Temp 97.8 F 07/23/18 08:00 Pulse 72 07/23/18 12:02 Resp 24 07/23/18 11:00 BP 99/61 07/23/18 11:00 Pulse Ox 94 L 07/23/18 11:00 Intake & Output 07/22/18 07/23/18 07/23/18 18:59 06:59 18:59 Intake Total 2320 1360 900 Output Total 3400 2250 1400 Balance -4034 -890 -500 Weight 78.8 kg Intake: IV 1700 1240 900 Azithromycin 500 mg In 250 250 Sodium Chloride 0.9% 250 ml @ 250 mls/hr IVPB DAILY [facility] Rx#:[id number] Magnesium Sulfate-D5w Pmx 200 100 100 1 gm In Dextrose/Water 1 100ml.bag @ 100 mls/hr IVPB Q1H [facility] Rx#: [id number] Potassium Chloride 10 meq 200 In Water For Injection 1 100ml.bag @ 100 mls/hr IVPB Q1H [facility] Rx#: [id number] Sodium Chloride 0.9% 1, 1200 940 100 000 ml @ 100 mls/hr IV . Q10H [facility] Rx#:[id number] Sodium Chloride 0.9% 1, 400 000 ml @ 100 mls/hr IV . Q10H [facility] Rx#:[id number] cefTRIAXone 1,000 mg In 50 50 Sodium Chloride 0.9% 50 ml @ 100 mls/hr IVPB Q24HR [facility] Rx#:[id number] Oral 120 Blood Product 620 As-1 Unit 310 [id number] As-1 Unit 310 [id number] Output: Urine 3400 2250 1400 Other: Voiding Method Urinal Urinal Urinal # Voids 2 0 2 - Exam Constitutional General appearance: average body habitus, cooperative, no acute distress - EENT Stitched laceration above right eye, bruise under right eye Eyes: anicteric sclerae, EOMI ENT: normal oropharynx - Neck Neck: no lymphadenopathy - Respiratory Respiratory: left: rhonchi (anterior) - Cardiovascular Heart sounds: normal: S1, S2 leg Peripheral Edema: bilateral: Trace - Gastrointestinal General gastrointestinal: no absent bowel sounds, no decreased bowel sounds, no distended, no hepatomegaly, no hyperactive bowel sounds, normal bowel sounds, no organomegaly, no rigid, no scaphoid, soft, no splenomegaly, no tenderness, no umbilical hernia, no ventral hernia - Neurologic Neurologic: CNII-XII intact - Musculoskeletal Musculoskeletal: strength equal bilaterally - Psychiatric Psychiatric: A&O x's 3, appropriate affect, intact judgment & insight - Labs CBC & Chem 7: 07/23/18 04:30 07/23/18 04:30 Labs: Abnormal Lab Results - Last 24 Hours (Table) 07/22/18 07/22/18 07/22/18 Range/Units 08:30 17:07 17:07 WBC (3.8-10.6) k/uL RBC 2.87 L (4.30-5.90) m/uL Hgb 8.9 L D (13.0-17.5) gm/dL Hct 27.2 L (39.0-53.0) % RDW 17.2 H (11.5-15.5) % Plt Count 26 L (150-450) k/uL Lymphocytes # (1.0-4.8) k/uL Potassium 3.3 L (3.5-5.1) mmol/L Chloride (98-107) mmol/L BUN (9-20) mg/dL Calcium (8.4-10.2) mg/dL Crossmatch See Detail 07/23/18 07/23/18 Range/Units 04:30 04:30 WBC 3.3 L (3.8-10.6) k/uL RBC 2.69 L (4.30-5.90) m/uL Hgb 8.0 L (13.0-17.5) gm/dL Hct 25.5 L (39.0-53.0) % RDW 17.1 H (11.5-15.5) % Plt Count 23 L (150-450) k/uL Lymphocytes # 0.5 L (1.0-4.8) k/uL Potassium (3.5-5.1) mmol/L Chloride 110 H (98-107) mmol/L BUN 29 H (9-20) mg/dL Calcium 8.0 L (8.4-10.2) mg/dL Crossmatch Microbiology - Last 24 Hours (Table) 07/22/18 07:15 Gram Stain - Preliminary Sputum Sputum Culture - Preliminary 07/21/18 17:05 Urine Culture - Final Urine,Voided 07/21/18 13:15 Blood Culture - Preliminary Blood No Growth after 24 hours Assessment and Plan Plan: ECHO report reviewed Chest x-ray: report reviewed CT Scan - head: report reviewed Assessment and Plan (1) MDS (myelodysplastic syndrome) - Pt is working with BMT team at [facility]. They will cont f/u as scheduled - Please ensure of transfused blood products are irradiated (2) Pancytopenia Acute blood loss anemia, Underlying Bone Marrow Insufficiency with MDS - Agree with PRBCs transfusion for Hgb <7. Please order irradiated, CMV negative blood products. Transfuse very conservatively. Thrombocytopenia: - Platlets are 23k today, this is stable as long as no further bleeding, if any signs of bleeding transfuse Leukopenia/Neutropenia - WBC/ANC remain adequate, no intervention at this time. Please, do not administer GCSF unless cleared with Hem/Onc - Please continue daily CBC with Differential (3) Hypovolemic shock related to acute bleed from trauma to fore head laceration : - Per Care of ICU (4) Fall with Head Trauma - Status Post Suturing - Per Care of ICU and Primary Team (5) Sepsis associated with bilateral pneumonia - Agree with Antibiotics while awaiting antony cultures, with lymphopenia and underlying MDS if no improvement recommend broadening antibiotic coverage (i.e. Vancomycin, cefepime/Zosyn) (6) Acute renal failure - - Secondary to intravascular volume depletion and dehydration - Improved with Hydration - Primary team management (7) Syncopal Episode - Cardiology Following [facility] Physician Attest: I have completed the full history and physical of this patient and agree with above dictation by Shivani Dunbar NP. Dictated as a scribe.
--- NOTE | 2018-07-23 20:57 | P.PN ---
Subjective Progress Note Date: 07/23/18 Principal diagnosis: Acute blood loss anemia, sepsis associated bilateral pneumonia, near syncope, acute renal failure, intravascular volume depletion and dehydration, history of myelodysplastic disorder, history of coronary artery disease with stent placement, trauma to the 4 head 07/23/2018, patient seen eval examined during the rounds, blood pressure remains marginal however beta blockers are being kept on hold, hemoglobin slightly trickle down but overall remains stable labs reviewed medications reviewed x-ray finding reviewed as well the pneumonia appears to be slowly clearing up care plan discussed with the patient as well as staff at length critical care time spent 35 minutes 07/22/2018, patient seen eval examined during the rounds his hemodynamic status remains marginal blood pressure continued to run on the lower side, patient has been resuscitated with crystalloid for over 3-1/2 L also on maintenance fluid, urine output has picked up now about 30-50 mL an hour, lobe and dropped down to 6.2 he is a scheduled to get 2 unit of packed RBC, during the blood transfusion patient was seen evaluated examined the hemodynamics slightly better, patient has good 2 peripheral IVs, shortness of breath is stable, patient will get the 40 mg of furosemide after second unit of blood pressure remains stable labs reviewed medications reviewed care plan discussed with the patient as well as sister present at bedside, patient is status post echocardiogram which revealed ejection fraction of 50-55% Objective - Vital Signs Vital signs: Vital Signs Temp 97.6 F 07/23/18 20:00 Pulse 75 07/23/18 20:00 Resp 21 07/23/18 20:00 BP 100/68 07/23/18 20:00 Pulse Ox 92 L 07/23/18 20:00 Intake & Output 07/23/18 07/23/18 07/24/18 06:59 18:59 06:59 Intake Total 1360 1600 20 Output Total 2250 2200 Balance -890 -600 20 Weight 78.8 kg Intake: IV 1240 1600 20 Azithromycin 500 mg In 250 Sodium Chloride 0.9% 250 ml @ 250 mls/hr IVPB DAILY [facility] Rx#:[id number] Magnesium Sulfate-D5w Pmx 100 100 1 gm In Dextrose/Water 1 100ml.bag @ 100 mls/hr IVPB Q1H [facility] Rx#: [id number] Potassium Chloride 10 meq 200 In Water For Injection 1 100ml.bag @ 100 mls/hr IVPB Q1H [facility] Rx#: [id number] Sodium Chloride 0.9% 1, 940 100 000 ml @ 100 mls/hr IV . Q10H [facility] Rx#:[id number] Sodium Chloride 0.9% 1, 1100 20 000 ml @ 100 mls/hr IV . Q10H [facility] Rx#:[id number] cefTRIAXone 1,000 mg In 50 Sodium Chloride 0.9% 50 ml @ 100 mls/hr IVPB Q24HR [facility] Rx#:[id number] Oral 120 Output: Urine 2250 2200 Other: Voiding Method Urinal Urinal # Voids 0 1 0 - Exam - Constitutional General appearance: average body habitus, cooperative, disheveled, mild distress - EENT Laceration at the 4 head has been repaired Eyes: EOMI, PERRLA, poor dentition, normal appearance ENT: normal oropharynx Ears: bilateral: normal - Neck Carotids: bilateral: upstroke normal, bruit absent Thyroid: bilateral: normal size - Respiratory Respiratory: bilateral: CTA - Cardiovascular Rhythm: regular Heart sounds: normal: S1, S2 - Gastrointestinal General gastrointestinal: normal bowel sounds, soft - Neurologic Neurologic: CNII-XII intact - Musculoskeletal Musculoskeletal: gait normal, strength equal bilaterally - Psychiatric Psychiatric: A&O x's 3, appropriate affect, intact judgment & insight - Labs CBC & Chem 7: 07/23/18 04:30 07/23/18 04:30 Labs: Abnormal Lab Results - Last 24 Hours (Table) 07/22/18 07/23/18 07/23/18 Range/Units 17:07 04:30 04:30 WBC 3.3 L (3.8-10.6) k/uL RBC 2.69 L (4.30-5.90) m/uL Hgb 8.9 L D 8.0 L (13.0-17.5) gm/dL Hct 25.5 L (39.0-53.0) % RDW 17.1 H (11.5-15.5) % Plt Count 23 L (150-450) k/uL Lymphocytes # 0.5 L (1.0-4.8) k/uL Chloride 110 H (98-107) mmol/L BUN 29 H (9-20) mg/dL Calcium 8.0 L (8.4-10.2) mg/dL Microbiology - Last 24 Hours (Table) 07/21/18 13:15 Blood Culture - Preliminary Blood No Growth after 48 hours 07/22/18 07:15 Gram Stain - Preliminary Sputum Sputum Culture - Preliminary 07/21/18 17:05 Urine Culture - Final Urine,Voided Assessment and Plan Assessment: Hypovolemic shock related to acute bleed from trauma to forehead laceration Sepsis associated with bilateral pneumonia Acute blood loss anemia Near Syncopal episode Acute renal failure Intravascular volume depletion and dehydration History of myelodysplastic disorder History of coronary artery disease and stent placement Trauma to 4 head related to fall status post suturing Plan: Gentle fluid resuscitation Status post transfusion of 2 units of packed RBC Follow-up on Caicedo culture with the urine and blood and sputum if able to obtain Broad-spectrum antibiotics Vasopressors if map less than 65, patient appears to be doing better as blood pressure remains stable Recommendations from cardiovascular disease services noted Repeat labs x-rays tomorrow Further recommendations pending plan of care as per clinical response of the patient Increase activity as tolerated critical care time spent 35 minutes Time with Patient: Greater than 30
[2018-07-24 04:41] LABS: Anisocytosis Slight; Basophils % (A) 0 %; Eosinophils # (A) 0.1 k/uL (0-0.7); Eosinophils % (A) 3 %; HCT 26.3 % (39.0-53.0); HGB 8.6 gm/dL (13.0-17.5); Hypochromasia Moderate; Lymphocytes # (A) 0.5 k/uL (1.0-4.8); Lymphocytes % (A) 21 %; MCH 30.7 pg (25.0-35.0); MCHC 32.5 g/dL (31.0-37.0); MCV 94.4 fL (80.0-100.0); Monocytes % (A) 2 %; Neutrophils # (A) 1.6 k/uL (1.3-7.7); Neutrophils % (A) 72 %; Poikilocytosis Slight; RBC 2.79 m/uL (4.30-5.90); RDW 16.7 % (11.5-15.5); WBC 2.1 k/uL (3.8-10.6)
[2018-07-24 04:55] LABS: Calcium 8.3 mg/dL (8.4-10.2); Magnesium 1.9 mg/dL (1.6-2.3); Phosphorus 3.9 mg/dL (2.5-4.5)
[2018-07-24 05:23] LABS: Platelet Count 30 k/uL (150-450)
[2018-07-24] MEDS: MAGNESIUM SULFATE-D5W PMX 1 GM in DEXTROSE/WATER 1 100ML.BAG IVPB SCH ×2 (06:52→08:22)
[2018-07-24 07:11] LABS: Polychromasia Present; Target Cells Present
[2018-07-24 07:14] LABS: Large Platelets Present
[2018-07-24] MEDS: BUDESONIDE 0.5 MG/2 ML NEBU INHALATION SCH ×2 (07:34→20:23)
[2018-07-24] MEDS: IPRATROPIUM-ALBUTEROL 3 ML NEB INHALATION SCH ×4 (07:34→20:23)
[2018-07-24] MEDS: FUROSEMIDE 10 MG/ML 2 ML VIAL IV SCH (08:39)
[2018-07-24] MEDS: AZITHROMYCIN 500 MG in SODIUM CHLORIDE 0.9% 250 ML IVPB SCH (08:43)
--- NOTE | 2018-07-24 08:44 | XR ---
EXAMINATION TYPE: XR chest 1V DATE OF EXAM: 07/24/2018 HISTORY: Shortness of breath. COMPARISON: 07/23/2018 TECHNIQUE: Single view of the chest is submitted. FINDINGS: Demonstrated are scattered senescent parenchymal change. There is no evidence for focal infiltrate. The heart is stable. Hilar and mediastinal structures are within normal limits. Degenerative changes are seen of the dorsal spine. IMPRESSION: 1. Chronic changes without evidence for acute pulmonary disease.
--- NOTE | 2018-07-24 14:04 | P.PN ---
Subjective Progress Note Date: 07/24/18 Principal diagnosis: Fall with Head Trauma, MDS, Sepsis CBC is Stable and Improved today, Afebrile, Renal Function improving. Objective - Vital Signs Vital signs: Vital Signs Temp 97.5 F L 07/24/18 12:00 Pulse 87 07/24/18 13:00 Resp 23 07/24/18 13:00 BP 82/55 07/24/18 13:00 Pulse Ox 93 L 07/24/18 13:00 Intake & Output 07/23/18 07/24/18 07/24/18 18:59 06:59 18:59 Intake Total 1600 20 500 Output Total 2200 1000 1100 Balance -600 -980 -600 Weight 80.8 kg Intake: IV 1600 20 300 Azithromycin 500 mg In 250 250 Sodium Chloride 0.9% 250 ml @ 250 mls/hr IVPB DAILY [facility] Rx#:[id number] Magnesium Sulfate-D5w Pmx 100 1 gm In Dextrose/Water 1 100ml.bag @ 100 mls/hr IVPB Q1H [facility] Rx#: [id number] Sodium Chloride 0.9% 1, 100 000 ml @ 100 mls/hr IV . Q10H [facility] Rx#:[id number] Sodium Chloride 0.9% 1, 1100 20 000 ml @ 100 mls/hr IV . Q10H [facility] Rx#:[id number] cefTRIAXone 1,000 mg In 50 50 Sodium Chloride 0.9% 50 ml @ 100 mls/hr IVPB Q24HR [facility] Rx#:[id number] Intake, IV Titration 200 Amount Magnesium Sulfate-D5w Pmx 200 1 gm In Dextrose/Water 1 100ml.bag @ 100 mls/hr IVPB Q1H [facility] Rx#: [id number] Output: Urine 2200 1000 1100 Other: Voiding Method Urinal Urinal Urinal # Voids 1 0 - Exam Constitutional General appearance: average body habitus, cooperative, no acute distress - EENT Stitched laceration above right eye, bruise under right eye Eyes: anicteric sclerae, EOMI ENT: normal oropharynx - Neck Neck: no lymphadenopathy - Respiratory Respiratory: left: rhonchi (anterior) - Cardiovascular Heart sounds: normal: S1, S2 leg Peripheral Edema: bilateral: Trace - Gastrointestinal General gastrointestinal: no absent bowel sounds, no decreased bowel sounds, no distended, no hepatomegaly, no hyperactive bowel sounds, normal bowel sounds, no organomegaly, no rigid, no scaphoid, soft, no splenomegaly, no tenderness, no umbilical hernia, no ventral hernia - Neurologic Neurologic: CNII-XII intact - Musculoskeletal Musculoskeletal: strength equal bilaterally - Psychiatric Psychiatric: A&O x's 3, appropriate affect, intact judgment & insight - Labs CBC & Chem 7: 07/24/18 04:16 07/24/18 04:16 Labs: Abnormal Lab Results - Last 24 Hours (Table) 07/24/18 07/24/18 Range/Units 04:16 04:16 WBC 2.1 L (3.8-10.6) k/uL RBC 2.79 L (4.30-5.90) m/uL Hgb 8.6 L (13.0-17.5) gm/dL Hct 26.3 L (39.0-53.0) % RDW 16.7 H (11.5-15.5) % Plt Count 30 L (150-450) k/uL Lymphocytes # 0.5 L (1.0-4.8) k/uL Chloride 108 H (98-107) mmol/L BUN 26 H (9-20) mg/dL Calcium 8.3 L (8.4-10.2) mg/dL Microbiology - Last 24 Hours (Table) 07/22/18 07:15 Gram Stain - Final Sputum Sputum Culture - Final 07/21/18 13:15 Blood Culture - Preliminary Blood No Growth after 48 hours Assessment and Plan Plan: ECHO report reviewed Chest x-ray: report reviewed CT Scan - head: report reviewed Assessment and Plan (1) MDS (myelodysplastic syndrome) - Pt is working with BMT team at [facility]. He had an appointment this past week, will assist with obtaining another appointment for after new year, discussed with patient. - Please ensure of transfused blood products are irradiated (2) Pancytopenia Acute blood loss anemia, Underlying Bone Marrow Insufficiency with MDS - Agree with PRBCs transfusion for Hgb <7. Hgb 8.6 today, no transfusion required. If transfusion is needed please ensure irradiated, CMV negative blood products are only transfused. Transfuse very conservatively. Thrombocytopenia: - Platlets are 30k today, this is stable as long as no further bleeding, if any signs of bleeding transfuse Leukopenia/Neutropenia - WBC/ANC remain adequate, no intervention at this time. Please, do not administer GCSF unless cleared with Hem/Onc - Please continue daily CBC with Differential (3) Hypovolemic shock related to acute bleed from trauma to fore head laceration : - Per Care of ICU (4) Fall with Head Trauma - Status Post Suturing - Per Care of ICU and Primary Team (5) Sepsis associated with bilateral pneumonia - Agree with Antibiotics while awaiting antony cultures, with lymphopenia and underlying MDS if no improvement recommend broadening antibiotic coverage (i.e. Vancomycin, cefepime/Zosyn) (6) Acute renal failure - - Secondary to intravascular volume depletion and dehydration - Improved with Hydration - Primary team management (7) Syncopal Episode - Cardiology Following [facility] Physician Attest: I have completed the full history and physical of this patient and agree with above dictation by Shivani Dunbar NP. Dictated as a scribe.
--- NOTE | 2018-07-24 18:24 | PN ---
PROGRESS NOTE DATE OF SERVICE: 07/24/2018 He was seen on 07/24/2018. He has an ecchymotic area in his right forehead. He denies a headache or blurry vision today. He does not have any wheezing. He has an occasional cough. On physical examination, his blood pressure is 97/59, respiratory rate of 18, pulse rate 82, temperature 98.1, O2 saturation on room air is 91%. HEENT reveals an ecchymotic area in his right forehead. No jugular venous distention. Chest is relatively clear. Cardiovascular system is S1, S2. Abdomen is soft. There is no pedal edema. IMPRESSION: At this time is: 1. Dizziness with fall. 2. Myelodysplastic syndrome. 3. Pneumonia. 4. Acute renal failure. PLAN: Continue IV fluids, antibiotics. Increase his activity level. Hold off on subcu heparin because of his recent bleed. MMODL / IJN: [id number] /
[2018-07-24] MEDS: FAMOTIDINE 20 MG TAB PO SCH (20:45)
[2018-07-24] MEDS: ATORVASTATIN 80 MG TAB PO SCH (20:45)
[2018-07-24] MEDS ORDERED: HEPARIN SODIUM,PORCINE 5,000 UNIT/ML 1 ML VIAL SQ SCH (21:00)
[2018-07-25 05:38] LABS: Anisocytosis Slight; HCT 26.7 % (39.0-53.0); HGB 8.4 gm/dL (13.0-17.5); Hypochromasia Moderate; MCH 29.6 pg (25.0-35.0); MCHC 31.4 g/dL (31.0-37.0); MCV 94.3 fL (80.0-100.0); Mean Platelet Volume 9.4; Poikilocytosis Slight; RBC 2.83 m/uL (4.30-5.90); RDW 16.4 % (11.5-15.5); WBC 2.4 k/uL (3.8-10.6)
[2018-07-25 05:43] LABS: Platelet Count 39 k/uL (150-450)
[2018-07-25 06:06] LABS: Lymphocytes # (M) 0.67 k/uL (1.0-4.8); Monocytes # (M) 0.14 k/uL (0-1.0); Neutrophils # (M) 1.58 k/uL (1.3-7.7); Neutrophils % (M) 66 %; Nucleated Red Blood Cells 0 /100 WBC (0-0); Total Cells Counted 100
[2018-07-25 06:21] LABS: Calcium 8.3 mg/dL (8.4-10.2); Magnesium 1.9 mg/dL (1.6-2.3); Phosphorus 4.3 mg/dL (2.5-4.5); Potassium 3.8 mmol/L (3.5-5.1)
--- NOTE | 2018-07-25 07:13 | XR ---
EXAMINATION TYPE: XR chest 1V DATE OF EXAM: 07/25/2018 COMPARISON: 07/24/2018 HISTORY: Shortness of breath TECHNIQUE: Single frontal view of the chest is obtained. FINDINGS: There is platelike bibasilar subsegmental atelectasis and pulmonary hyperinflation with bi apical lucency suggesting underlying COPD. No focal consolidation, pleural effusion or pneumothorax. Mild multilevel degenerative changes of the thoracic spine are seen. Cardiomediastinal silhouette is stable. Within the mid diaphysis of the right humerus there is partial visualization of a mixed sclerotic and lucent intramedullary osseous lesion that appears to have lateral cortical surface expansion. Dedica davon right humeral radiographs are recommended for further detail. IMPRESSION: 1. Minimal bibasilar subsegmental atelectasis and findings suggesting underlying COPD. 2. Partially visualized right mid diaphyseal intramedullary mixed sclerotic and lytic possibly expans ile lesion, not imaged in the [id number] on prior chest radiographs. Dedicated right humeral radio graphs are recommended for further evaluation.
[2018-07-25] MEDS: IPRATROPIUM-ALBUTEROL 3 ML NEB INHALATION SCH ×4 (07:49→19:46)
[2018-07-25] MEDS: BUDESONIDE 0.5 MG/2 ML NEBU INHALATION SCH ×2 (07:49→19:46)
[2018-07-25] MEDS: FUROSEMIDE 10 MG/ML 2 ML VIAL IV SCH (08:16)
[2018-07-25] MEDS: FAMOTIDINE 20 MG TAB PO SCH ×2 (08:16→21:38)
[2018-07-25] MEDS ORDERED: Potassium Replacement Protocol 1 EACH MISC MISCELLANE PRN (08:22)
[2018-07-25] MEDS ORDERED: POTASSIUM BICARBONATE/CIT AC 20 MEQ TABLET.EFF PO SCH (09:00)
[2018-07-25] MEDS: AZITHROMYCIN 500 MG in SODIUM CHLORIDE 0.9% 250 ML IVPB SCH (09:21)
[2018-07-25] MEDS: MAGNESIUM SULFATE-D5W PMX 1 GM in DEXTROSE/WATER 1 100ML.BAG IVPB SCH ×2 (09:25→10:49)
--- NOTE | 2018-07-25 11:18 | P.PN ---
Subjective Progress Note Date: 07/25/18 Acute blood loss anemia, sepsis associated bilateral pneumonia, near syncope, acute renal failure, intravascular volume depletion and dehydration, history of myelodysplastic disorder, history of coronary artery disease with stent placement, trauma to the 4 head 07/23/2018, patient seen eval examined during the rounds, blood pressure remains marginal however beta blockers are being kept on hold, hemoglobin slightly trickle down but overall remains stable labs reviewed medications reviewed x-ray finding reviewed as well the pneumonia appears to be slowly clearing up care plan discussed with the patient as well as staff at length critical care time spent 35 minutes 07/22/2018, patient seen eval examined during the rounds his hemodynamic status remains marginal blood pressure continued to run on the lower side, patient has been resuscitated with crystalloid for over 3-1/2 L also on maintenance fluid, urine output has picked up now about 30-50 mL an hour, lobe and dropped down to 6.2 he is a scheduled to get 2 unit of packed RBC, during the blood transfusion patient was seen evaluated examined the hemodynamics slightly better, patient has good 2 peripheral IVs, shortness of breath is stable, patient will get the 40 mg of furosemide after second unit of blood pressure remains stable labs reviewed medications reviewed care plan discussed with the patient as well as sister present at bedside, patient is status post echocardiogram which revealed ejection fraction of 50-55% On 07/25/2018 patient is currently resting in bed. Patient remains on Rocephin and Zithromax. At this time patient denies chest pain or shortness of breath. Patient denies nausea vomiting or diarrhea. Patient denies any urinary burning or frequency Objective - Vital Signs Vital signs: Vital Signs Temp 98.0 F 07/25/18 08:00 Pulse 83 07/25/18 10:00 Resp 25 H 07/25/18 10:00 BP 96/76 07/25/18 10:00 Pulse Ox 97 07/25/18 10:00 Intake & Output 07/24/18 07/25/18 07/25/18 18:59 06:59 18:59 Intake Total 500 502 Output Total 1200 750 730 Balance -700 -750 -228 Weight 78.7 kg 78.7 kg Intake: IV 300 302 .9 20 2 Azithromycin 500 mg In 250 250 Sodium Chloride 0.9% 250 ml @ 250 mls/hr IVPB DAILY [facility] Rx#:[id number] cefTRIAXone 1,000 mg In 50 50 Sodium Chloride 0.9% 50 ml @ 100 mls/hr IVPB Q24HR [facility] Rx#:[id number] Intake, IV Titration 200 200 Amount Magnesium Sulfate-D5w Pmx 200 100 1 gm In Dextrose/Water 1 100ml.bag @ 100 mls/hr IVPB Q1H [facility] Rx#: [id number] Magnesium Sulfate-D5w Pmx 100 1 gm In Dextrose/Water 1 100ml.bag @ 100 mls/hr IVPB Q1H [facility] Rx#: [id number] Output: Urine 1200 750 730 Other: Voiding Method Urinal Urinal Urinal # Voids 1 0 0 - Exam Head normocephalic Neck supple Lungs clear to auscultation bilaterally no wheezing or crackles Heart regular rate and rhythm S1-S2, no rub or gallop Abdomen is soft nontender nondistended positive bowel sounds no hepatosplenomegaly Extremities no edema Neuro alert and orientated to 3 - Labs CBC & Chem 7: 07/25/18 04:45 07/25/18 04:45 Labs: Abnormal Lab Results - Last 24 Hours (Table) 07/25/18 07/25/18 Range/Units 04:45 04:45 WBC 2.4 L (3.8-10.6) k/uL RBC 2.83 L (4.30-5.90) m/uL Hgb 8.4 L (13.0-17.5) gm/dL Hct 26.7 L (39.0-53.0) % RDW 16.4 H (11.5-15.5) % Plt Count 39 L (150-450) k/uL Lymphocytes # (Manual) 0.67 L (1.0-4.8) k/uL BUN 25 H (9-20) mg/dL Glucose 106 H (74-99) mg/dL Calcium 8.3 L (8.4-10.2) mg/dL Microbiology - Last 24 Hours (Table) 07/21/18 13:15 Blood Culture - Preliminary Blood No Growth after 72 hours 07/22/18 07:15 Gram Stain - Final Sputum Sputum Culture - Final Assessment and Plan Assessment: 1. Hypovolemic shock related to acute bleed from trauma to forehead laceration. Patient received 2 units PRBCs. Patient's Lopressor continues to be on hold due to hypotension 2. Sepsis associated with bilateral pneumonia. Repeat chest x-ray completed showing minimal bibasilar subsegmental atelectasis and findings suggesting underlying COPD. Partially visualized right mid diaphysis a intramedullary mixed sclerotic and lytic possibly expansible lesion was not imaged in the field -of-view on prior chest radiographs dedicated right humeral radiographs are recommended for further eval. Dr. Mann following for pulmonary services. Blood culture currently showing no growth. Urine culture showing no growth. sputum culture pending. Rocephin and Zithromax IV antibiotics 3. Acute blood loss anemia. Patient received 2 units of PRBCs 4. Near Syncopal episode. Cardiology services are following 5. Acute renal failure. Resolved 6. Intravascular volume depletion and dehydration 7. History of myelodysplastic disorder. Oncology services are following her oncology service is patient is currently working with a bone marrow transplant team at [facility]. 8. History of coronary artery disease and stent placement 9. Trauma to 4 head related to fall status post suturing 10. Pancytopenia. Related to MDS. Oncology services are following. DVT prophylaxis SCDs due to thrombocytopenia and bleeding. GI prophylaxis Protonix I performed an examination of the patient and discussed their management with the Nurse Practitioner. I have reviewed the Nurse Practitioner's notes and agree with the documented findings and plan of care
[2018-07-25] MEDS: DOCUSATE 100 MG CAP PO PRN (16:43)
--- NOTE | 2018-07-25 19:19 | CONS ---
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 He presented to the ER on 07/21/2018. At that time he had been feeling weak, fell down, hit his face to an oak coffee table and this caused a laceration. He had also been having a cough with some scant sputum production. No clear fever or chills. He had not been on any anticoagulant. He subsequently was seen in the ER and admitted for further evaluation. PAST MEDICAL HISTORY: Positive for I believe myelodysplastic syndrome, anemia, frequent bruising of his skin, cardiac cath with coronary artery disease with subsequent stent placement, tonsillectomy, hypertension, myocardial infarction and rheumatoid arthritis. FAMILY HISTORY: Positive for coronary artery disease in his mother, cancer in his sister. SOCIAL HISTORY: Patient is a former smoker. Does not drink alcohol excessively. REVIEW OF SYSTEMS: Noncontributory. PHYSICAL EXAMINATION: He was sitting in a chair. His blood pressure is 94/69, respiratory rate 23, pulse rate of 89, temperature 98.6, O2 saturation on 3 L by nasal cannula is 94%. There is a laceration on his right face just at his eyebrow. There is ecchymosis of the forehead on the right. HEENT is otherwise unremarkable. Chest reveals scattered crackles at the bases. No clear wheeze. Cardiovascular system reveals an S1, S2. Abdomen is soft. There is no pedal edema. LABS: Reveal a white count of 2.4, hemoglobin of 8.4, platelet count of 39,000. Sodium 137, potassium 3.8, chloride 106, bicarb 23, BUN 25, creatinine 1.05, calcium 8.3, glucose 106. Chest x-ray showed bibasilar subsegmental atelectasis, sclerotic and lytic expansile change in the right mid diaphyseal humerus. His chest x-ray on 07/21/2018 showed patchy basilar infiltrates. IMPRESSION: 1. Fall with laceration to the forehead. 2. Bilateral pneumonia versus changes due to rheumatoid lung. 3. Myelodysplastic syndrome. 4. Medical debility. At this point in time from a pulmonary standpoint, would continue the patient on azithromycin and Rocephin. Continue bronchodilators. Increase his activity level slowly. Depending on how he does we should make further changes to his care. Continue GI prophylaxis. I would like to thank you for allowing me the privilege of participating in his care. MMODL / IJN: [id number] /
[2018-07-25] MEDS: ATORVASTATIN 80 MG TAB PO SCH (21:38)
[2018-07-26 05:28] LABS: Basophils % (A) 0 %; Eosinophils % (A) 1 %; HCT 27.7 % (39.0-53.0); Hypochromasia Slight; Lymphocytes # (A) 0.6 k/uL (1.0-4.8); Lymphocytes % (A) 23 %; MCH 30.6 pg (25.0-35.0); MCHC 32.4 g/dL (31.0-37.0); MCV 94.5 fL (80.0-100.0); Monocytes # (A) 0.1 k/uL (0-1.0); Monocytes % (A) 4 %; Neutrophils # (A) 1.9 k/uL (1.3-7.7); Neutrophils % (A) 69 %; Poikilocytosis Slight; RBC 2.93 m/uL (4.30-5.90); WBC 2.7 k/uL (3.8-10.6)
[2018-07-26 05:41] LABS: Calcium 8.6 mg/dL (8.4-10.2); Magnesium 2.1 mg/dL (1.6-2.3); Phosphorus 4.3 mg/dL (2.5-4.5); Potassium 4.2 mmol/L (3.5-5.1)
[2018-07-26 05:46] LABS: Platelet Count 39 k/uL (150-450)
--- NOTE | 2018-07-26 06:54 | XR ---
EXAMINATION TYPE: XR chest 1V DATE OF EXAM: 07/26/2018 COMPARISON: 07/25/2018 HISTORY: Shortness of breath TECHNIQUE: Single frontal view of the chest is obtained. FINDINGS: Hyperinflation compatible COPD. Right humeral lesion is seen. Subsegmental consolidation a t both lung bases. No pneumothorax. No sizable pleural effusion. There is prominence of the left hilu m. IMPRESSION: 1. COPD with persistent basilar atelectasis or infiltrate 2. Left hilar soft tissue prominence. Short-term follow-up CT of the chest recommended to exclude und erlying mass or adenopathy
[2018-07-26] MEDS: IPRATROPIUM-ALBUTEROL 3 ML NEB INHALATION SCH ×4 (07:10→20:22)
[2018-07-26] MEDS: BUDESONIDE 0.5 MG/2 ML NEBU INHALATION SCH ×2 (07:10→20:22)
[2018-07-26] MEDS: FAMOTIDINE 20 MG TAB PO SCH ×2 (08:52→21:12)
[2018-07-26] MEDS: AZITHROMYCIN 500 MG TAB PO SCH (08:53)
[2018-07-26] MEDS: DOCUSATE 100 MG CAP PO PRN (08:53)
[2018-07-26] MEDS: FUROSEMIDE 20 MG TAB PO SCH (08:53)
[2018-07-26] MEDS ORDERED: CALCIUM CARBONATE 500 MG CHEWABLE PO PRN (11:25)
--- NOTE | 2018-07-26 11:50 | P.PN ---
Subjective Progress Note Date: 07/26/18 Acute blood loss anemia, sepsis associated bilateral pneumonia, near syncope, acute renal failure, intravascular volume depletion and dehydration, history of myelodysplastic disorder, history of coronary artery disease with stent placement, trauma to the 4 head 07/23/2018, patient seen eval examined during the rounds, blood pressure remains marginal however beta blockers are being kept on hold, hemoglobin slightly trickle down but overall remains stable labs reviewed medications reviewed x-ray finding reviewed as well the pneumonia appears to be slowly clearing up care plan discussed with the patient as well as staff at length critical care time spent 35 minutes 07/22/2018, patient seen eval examined during the rounds his hemodynamic status remains marginal blood pressure continued to run on the lower side, patient has been resuscitated with crystalloid for over 3-1/2 L also on maintenance fluid, urine output has picked up now about 30-50 mL an hour, lobe and dropped down to 6.2 he is a scheduled to get 2 unit of packed RBC, during the blood transfusion patient was seen evaluated examined the hemodynamics slightly better, patient has good 2 peripheral IVs, shortness of breath is stable, patient will get the 40 mg of furosemide after second unit of blood pressure remains stable labs reviewed medications reviewed care plan discussed with the patient as well as sister present at bedside, patient is status post echocardiogram which revealed ejection fraction of 50-55% On 07/25/2018 patient is currently resting in bed. Patient remains on Rocephin and Zithromax. At this time patient denies chest pain or shortness of breath. Patient denies nausea vomiting or diarrhea. Patient denies any urinary burning or frequency On 07/26/2018 patient is currently resting in bed. Patient is complaining of some increased heartburn. Tums will be added. Patient denies chest pain. Patient is still complaining of productive cough. Patient denies nausea vomiting or diarrhea. Patient denies any urinary burning or frequency. Patient complains of constipation. continue Colace and encouraged early ambulation Objective - Vital Signs Vital signs: Vital Signs Temp 98.3 F 07/26/18 08:00 Pulse 85 07/26/18 08:00 Resp 23 07/26/18 08:00 BP 110/70 07/26/18 08:00 Pulse Ox 94 L 07/26/18 08:00 Intake & Output 07/25/18 07/26/18 07/26/18 18:59 06:59 18:59 Intake Total 762 280 Output Total 1275 1050 150 Balance -513 -770 -150 Weight 78.7 kg 77.3 kg Intake: IV 462 60 .9 20 162 60 Azithromycin 500 mg In 250 Sodium Chloride 0.9% 250 ml @ 250 mls/hr IVPB DAILY [facility] Rx#:[id number] cefTRIAXone 1,000 mg In 50 Sodium Chloride 0.9% 50 ml @ 100 mls/hr IVPB Q24HR [facility] Rx#:[id number] Intake, IV Titration 300 Amount Magnesium Sulfate-D5w Pmx 100 1 gm In Dextrose/Water 1 100ml.bag @ 100 mls/hr IVPB Q1H [facility] Rx#: [id number] Magnesium Sulfate-D5w Pmx 200 1 gm In Dextrose/Water 1 100ml.bag @ 100 mls/hr IVPB Q1H [facility] Rx#: [id number] Oral 220 Output: Urine 1275 1050 150 Other: Voiding Method Urinal Urinal Urinal # Voids 1 0 1 - Exam Head normocephalic Neck supple Lungs clear to auscultation bilaterally no wheezing or crackles Heart regular rate and rhythm S1-S2, no rub or gallop Abdomen is soft nontender nondistended positive bowel sounds no hepatosplenomegaly Extremities no edema Neuro alert and orientated to 3 - Labs CBC & Chem 7: 07/26/18 04:43 07/26/18 04:43 Labs: Abnormal Lab Results - Last 24 Hours (Table) 07/26/18 07/26/18 Range/Units 04:43 04:43 WBC 2.7 L (3.8-10.6) k/uL RBC 2.93 L (4.30-5.90) m/uL Hgb 9.0 L (13.0-17.5) gm/dL Hct 27.7 L (39.0-53.0) % RDW 16.0 H (11.5-15.5) % Plt Count 39 L (150-450) k/uL Lymphocytes # 0.6 L (1.0-4.8) k/uL Sodium 136 L (137-145) mmol/L BUN 23 H (9-20) mg/dL Glucose 103 H (74-99) mg/dL Microbiology - Last 24 Hours (Table) 12/27/18 13:15 Blood Culture - Preliminary Blood No Growth after 96 hours Assessment and Plan Assessment: 1. Hypovolemic shock related to acute bleed from trauma to forehead laceration. Patient received 2 units PRBCs. Will resume Lopressor with parameters 2. Sepsis associated with bilateral pneumonia. Repeat chest x-ray completed showing minimal bibasilar subsegmental atelectasis and findings suggesting underlying COPD. Partially visualized right mid diaphysis a intramedullary mixed sclerotic and lytic possibly expansible lesion was not imaged in the field -of-view on prior chest radiographs dedicated right humeral radiographs are recommended for further eval. Dr. Mann following for pulmonary services. Blood culture currently showing no growth. Urine culture showing no growth. sputum culture pending. Rocephin and Zithromax IV antibiotics 3. Acute blood loss anemia. Patient received 2 units of PRBCs 4. Near Syncopal episode. Cardiology services are following 5. Acute renal failure. Resolved 6. Intravascular volume depletion and dehydration 7. History of myelodysplastic disorder. Oncology services are following her oncology service is patient is currently working with a bone marrow transplant team at [facility]. 8. History of coronary artery disease and stent placement 9. Trauma to 4 head related to fall status post suturing 10. Pancytopenia. Related to MDS. Oncology services are following. 11. Constipation. Continue Colace encourage early ambulation DVT prophylaxis SCDs due to thrombocytopenia and bleeding. GI prophylaxis Protonix I performed an examination of the patient and discussed their management with the Nurse Practitioner. I have reviewed the Nurse Practitioner's notes and agree with the documented findings and plan of care
--- NOTE | 2018-07-26 14:08 | CT ---
EXAMINATION TYPE: CT chest wo con DATE OF EXAM: 07/26/2018 COMPARISON: 07/26/2018 chest radiograph HISTORY: Shortness of breath. CT DLP: 307.8 mGycm. Automated Exposure Control for Dose Reduction was Utilized. TECHNIQUE: CT scan of the thorax is performed without IV contrast. FINDINGS: LUNGS: There is a left lower lobe consolidation with areas of hypoattenuation with Hounsfield units l ower than that of the adjacent paraspinal musculature compatible with pneumonia. Additional right low er lobe opacity is also suggestive of multifocal pneumonia with bibasilar atelectasis. There is under lying moderate centrilobular emphysematous change. The previously seen peripheral early fibrotic sheppard ge is not well-demonstrated on today's examination and obscured by the lower lung opacities. Few subp leural sub-3 mm pulmonary nodules are seen in the right upper lobe such as on lung algorithm image 31 and 32. These appear to be unchanged from the prior of 11/24/2016. Small area of focal pleural thicken ing in the right lung apex medially measures up to 4 mm on image 17. Left perihilar soft tissue thick ening is also seen. MEDIASTINUM: Lack of IV contrast is noted to limit evaluation for mediastinal and especially hilar ad enopathy. There are multiple mildly enlarged lymph nodes measuring up to 1.3 cm in the aorticopulmona ry window, 1.2 cm pretracheal space, and 1.5 cm in the subcarinal space. Severe three-vessel coronary artery calcifications are noted. Ascending thoracic aorta is upper limits of normal in size measuri ng up to 4.0 cm. OTHER: There is a small hiatal hernia present. Multiple hypoattenuated hepatic lesions are seen, larg est compatible with simple cysts measuring up to 6.0 cm, and others too small to accurately character ize. These appear to have increased in number from prior exam of 11/24/2016 and could be further evalua davon with MRI liver. Large right renal cystic lesion is partially visualized with no complexity in its visualized portions measuring up to 5.9 cm. Moderate atherosclerosis of the visualized abdominal aorta and its branches is noted. IMPRESSION: 1. Findings compatible with multifocal pneumonia in the left lower lobe and right lower lobe, greater within the left lower lobe with left perihilar soft tissue thickening that is likely associated. How ever on the prior exam of 2017 there was a left basilar pulmonary nodule now obscured. Therefore shor t-term follow-up CT after treatment is recommended to ensure no interval growth of the known underlyi ng pulmonary nodule. 2. There appears to be interval increase in number of hypoattenuated hepatic lesions that could be fu rther evaluated with enhanced MRI of the liver. 3. Ascending thoracic aorta is upper limits of normal size approaching criteria for aneurysmal dilata tion. 4. Moderate pulmonary emphysema, severe three-vessel coronary artery calcifications that are marker o f coronary artery disease, findings suggestive of mild early pulmonary fibrosis on the prior exam now obscured, and partial visualization of a large cortical renal cyst are also seen.
--- NOTE | 2018-07-26 17:50 | PN ---
PROGRESS NOTE DATE OF SERVICE: 07/26/2018 He was seen again on July 26, 2018. He has been hemodynamically stable. He is less short of breath. On physical examination, his respiratory rate is 22, pulse rate 87, temperature 98.1, blood pressure 98/69, O2 saturation on 5 L by nasal cannula is 96%. HEENT is unremarkable. Chest reveals basal crackles. Cardiovascular system is S1, S2. Abdomen is soft. There is no pedal edema. White count is 2.7, hemoglobin of 9, platelet count of 39,000. Microbiological cultures in the sputum have shown normal anastacio. IMPRESSION: At this time: 1. Fall with laceration to the right forehead. 2. Pneumonia. 3. 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 4. Recent chest x-ray which showed prominent left hilum for which chest CT has been ordered. PLAN: Continue current antibiotics. Increase his activity level. MRI of the liver may be required because of hypoattenuating lesions on the liver on CT scan. He was counseled regarding his condition and this approach. MMODL / IJN: [id number] /
[2018-07-26] MEDS: ATORVASTATIN 80 MG TAB PO SCH (21:12)
[2018-07-26] MEDS: METOPROLOL SUCCINATE (ER) 25 MG TAB.ER.24H PO SCH (21:14)
[2018-07-27] MEDS: SODIUM CHLORIDE 0.9% 1,000 ML IV SCH (06:35)
[2018-07-27] MEDS: FUROSEMIDE 20 MG TAB PO SCH (09:29)
[2018-07-27] MEDS: AZITHROMYCIN 500 MG TAB PO SCH (09:29)
[2018-07-27] MEDS: FAMOTIDINE 20 MG TAB PO SCH ×2 (09:29→20:32)
[2018-07-27] MEDS: IPRATROPIUM-ALBUTEROL 3 ML NEB INHALATION SCH ×4 (10:00→19:59)
[2018-07-27] MEDS: BUDESONIDE 0.5 MG/2 ML NEBU INHALATION SCH ×2 (10:00→19:59)
--- NOTE | 2018-07-27 10:11 | P.PN ---
Subjective Progress Note Date: 07/27/18 Interval history: 07/27/2017patient is being seen examined and evaluated today on rounds while covering for Dr. Mann. The patient is resting up in bed on 4 L of supplemental oxygen via nasal cannula. The patient does not use oxygen at home. His oxygen is decreased to 3 L and he is satting at 96%. We will continue to slowly wean down oxygen as tolerated. He states he occasionally still does have shortness of breath with exertion. He does have an occasional cough with scant sputum production that is okay to white. He did undergo a CT of the chest yesterday which did show the multifocal pneumonia, hepatic lesions and possible pulmonary fibrosis. He does continue on antibiotics. His white count is 2.7 today. His hemoglobin is stable at 9.0. He is afebrile no further complaints. Has been using his incentive spirometer. Objective - Vital Signs Vital signs: Vital Signs Temp 97.9 F 07/27/18 04:02 Pulse 93 07/27/18 04:02 Resp 25 H 07/27/18 04:02 BP 90/56 07/27/18 04:02 Pulse Ox 93 L 07/27/18 04:02 Intake & Output 07/26/18 07/27/18 07/27/18 18:59 06:59 18:59 Intake Total 240 Output Total 700 325 Balance -700 -325 240 Weight 70.6 kg Intake: Oral 240 Output: Urine 700 325 Other: Voiding Method Urinal Urinal # Voids 1 - Exam GENERAL EXAM: Alert, active, comfortable in no apparent distress. HEAD: Normocephalic. EYES: Normal reaction of pupils, equal size. NOSE: Clear with pink turbinates. THROAT: No erythema or exudates. NECK: No masses, no JVD. CHEST: No chest wall deformity. LUNGS: Equal air entry with no crackles, wheeze, rhonchi or dullness. CVS: S1 and S2 normal with no audible mumurs, regular rhythm. ABDOMEN: No hepatosplenomegaly, normal bowel sounds, no guarding or rigidity. EXTREMITIES: No edema noted, pedal pulses palpable. CENTRAL NERVOUS SYSTEM: No focal deficits, tone is normal in all 4 extremities. 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 Continue with antibiotics as ordered Hematology/oncology following for pancytopenia CT of the chest reviewed Continue to monitor for any further bleeding and hemoglobin Continue with pulmonary hygiene, coughing and deep breathing exercises, and supportive care. Supplemental oxygen to maintain oxygen saturations of 92% or better. Continue nebulizer treatments. GI and DVT prophylaxis- Protonix and SCDs, no anticoagulants due to recent bleeding. We will continue to monitor labs/results and adjust treatment as necessary. Further recommendations pending. Please note we are covering for Dr. Johnathan Sherman, the signing physician performed an examination of the patient, discussed and directed their management with the nurse practitioner. I have reviewed the nurse practitioner's note and agree with the documented findings, orders and plan of care.
--- NOTE | 2018-07-27 11:39 | P.PN ---
Subjective Progress Note Date: 07/27/18 Acute blood loss anemia, sepsis associated bilateral pneumonia, near syncope, acute renal failure, intravascular volume depletion and dehydration, history of myelodysplastic disorder, history of coronary artery disease with stent placement, trauma to the 4 head 07/23/2018, patient seen eval examined during the rounds, blood pressure remains marginal however beta blockers are being kept on hold, hemoglobin slightly trickle down but overall remains stable labs reviewed medications reviewed x-ray finding reviewed as well the pneumonia appears to be slowly clearing up care plan discussed with the patient as well as staff at length critical care time spent 35 minutes 07/22/2018, patient seen eval examined during the rounds his hemodynamic status remains marginal blood pressure continued to run on the lower side, patient has been resuscitated with crystalloid for over 3-1/2 L also on maintenance fluid, urine output has picked up now about 30-50 mL an hour, lobe and dropped down to 6.2 he is a scheduled to get 2 unit of packed RBC, during the blood transfusion patient was seen evaluated examined the hemodynamics slightly better, patient has good 2 peripheral IVs, shortness of breath is stable, patient will get the 40 mg of furosemide after second unit of blood pressure remains stable labs reviewed medications reviewed care plan discussed with the patient as well as sister present at bedside, patient is status post echocardiogram which revealed ejection fraction of 50-55% On 07/25/2018 patient is currently resting in bed. Patient remains on Rocephin and Zithromax. At this time patient denies chest pain or shortness of breath. Patient denies nausea vomiting or diarrhea. Patient denies any urinary burning or frequency On 07/26/2018 patient is currently resting in bed. Patient is complaining of some increased heartburn. Tums will be added. Patient denies chest pain. Patient is still complaining of productive cough. Patient denies nausea vomiting or diarrhea. Patient denies any urinary burning or frequency. Patient complains of constipation. continue Colace and encouraged early ambulation On 07/27/2018 patient is currently alert and oriented 3 resting comfortably in bed. At this time patient still is complaining of cough with congestion. Patient remains on IV antibiotics. Pulmonary services are following. Patient denies nausea vomiting or diarrhea. Patient denies any urinary burning or frequency Objective - Vital Signs Vital signs: Vital Signs Temp 97.9 F 07/27/18 04:02 Pulse 93 07/27/18 04:02 Resp 25 H 07/27/18 04:02 BP 90/56 07/27/18 04:02 Pulse Ox 93 L 07/27/18 04:02 Intake & Output 07/26/18 07/27/18 07/27/18 18:59 06:59 18:59 Intake Total 240 Output Total 700 325 Balance -700 -325 240 Weight 70.6 kg Intake: Oral 240 Output: Urine 700 325 Other: Voiding Method Urinal Urinal Urinal # Voids 1 - Exam Head normocephalic Neck supple Lungs clear to auscultation bilaterally no wheezing or crackles Heart regular rate and rhythm S1-S2, no rub or gallop Abdomen is soft nontender nondistended positive bowel sounds no hepatosplenomegaly Extremities no edema Neuro alert and orientated to 3 - Labs CBC & Chem 7: 07/26/18 04:43 07/26/18 04:43 Labs: Microbiology - Last 24 Hours (Table) 07/21/18 13:15 Blood Culture - Preliminary Blood No Growth after 120 hours Assessment and Plan Assessment: 1. Hypovolemic shock related to acute bleed from trauma to forehead laceration. Patient received 2 units PRBCs. Will resume Lopressor with parameters 2. Sepsis associated with bilateral pneumonia. Repeat chest x-ray completed showing minimal bibasilar subsegmental atelectasis and findings suggesting underlying COPD. Partially visualized right mid diaphysis a intramedullary mixed sclerotic and lytic possibly expansible lesion was not imaged in the field -of-view on prior chest radiographs dedicated right humeral radiographs are recommended for further eval. Dr. Mann following for pulmonary services. Blood culture currently showing no growth. Urine culture showing no growth. sputum culture pending. Rocephin and Zithromax IV antibiotics 3. Acute blood loss anemia. Patient received 2 units of PRBCs 4. Near Syncopal episode. Cardiology services are following 5. Acute renal failure. Resolved 6. Intravascular volume depletion and dehydration 7. History of myelodysplastic disorder. Oncology services are following her oncology service is patient is currently working with a bone marrow transplant team at [facility]. 8. History of coronary artery disease and stent placement 9. Trauma to 4 head related to fall status post suturing 10. Pancytopenia. Related to MDS. Oncology services are following. 11. Constipation. Continue Colace encourage early ambulation DVT prophylaxis SCDs due to thrombocytopenia and bleeding. GI prophylaxis Protonix I performed an examination of the patient and discussed their management with the Nurse Practitioner. I have reviewed the Nurse Practitioner's notes and agree with the documented findings and plan of care
[2018-07-27] MEDS ORDERED: MAGNESIUM HYDROXIDE 2,400 MG/10 ML CUP PO PRN ×2 (12:43)
[2018-07-27] MEDS: CALCIUM CARBONATE 500 MG CHEWABLE PO PRN (12:59)
--- NOTE | 2018-07-27 14:28 | P.PN ---
Subjective Progress Note Date: 07/27/18 Principal diagnosis: trauma post fall, MDS awaiting SCT at [facility] Pt seen today in f/u, he is feeling better, no bleeding to report, vision changes, appetite is poor due to indigestion, denies ZANE but is SOB with exertion, has mild cough, no abd pain or cramping despite no BM for about 5 days. Objective - Vital Signs Vital signs: Vital Signs Temp 97.9 F 07/27/18 04:02 Pulse 93 07/27/18 04:02 Resp 25 H 07/27/18 04:02 BP 90/56 07/27/18 04:02 Pulse Ox 93 L 07/27/18 04:02 Intake & Output 07/26/18 07/27/18 07/27/18 18:59 06:59 18:59 Intake Total 240 Output Total 700 325 Balance -700 -325 240 Weight 70.6 kg Intake: Oral 240 Output: Urine 700 325 Other: Voiding Method Urinal Urinal Urinal # Voids 1 - Constitutional General appearance: Present: average body habitus, cooperative, no acute distress - EENT Eyes: Present: anicteric sclerae, EOMI ENT: Present: hearing grossly normal - Respiratory Respiratory: right: diminished (base), bilateral: CTA - Cardiovascular Rhythm: regular Heart sounds: normal: S1, S2 Abnormal Heart Sounds: Absent: systolic murmur, diastolic murmur, rub, S3 Gallop , S4 Gallop, click, other - Gastrointestinal General gastrointestinal: Present: normal bowel sounds, soft - Integumentary Integumentary Comment(s): right eye laceration with stitches, under eye is black - Neurologic Neurologic: Present: CNII-XII intact - Musculoskeletal Musculoskeletal: Present: generalized weakness, strength equal bilaterally - Psychiatric Psychiatric: Present: A&O x's 3, appropriate affect, intact judgment & insight - Labs CBC & Chem 7: 07/26/18 04:43 07/26/18 04:43 Labs: Microbiology - Last 24 Hours (Table) 07/21/18 13:15 Blood Culture - Preliminary Blood No Growth after 120 hours - Imaging and Cardiology CT scan - chest: report reviewed Assessment and Plan (1) MDS (myelodysplastic syndrome) Narrative/Plan: Pt is working with [facility] team [facility]. They will cont f/u as scheduled. Current Visit: Yes Status: Acute Priority: High Code(s): D46.9 - MYELODYSPLASTIC SYNDROME, UNSPECIFIED SNOMED Code(s): 435179945 (2) Pancytopenia Narrative/Plan: CBC is low but, stable. PRBC transfusion for Hgb <7. Please order irradiated, CMV negative blood products. Transfuse very conservatively. Platelets are at pt baseline, 30-40,000 range. No asa, NSAIDs, anticoagulation. Close monitoring for bleeding. Please order irradiated, CMV negative blood products if needed. WBC/ANC low but adequate, no intervention at this time. Please, do not administer GCSF unless cleared with Hem/Onc Current Visit: Yes Status: Chronic Priority: High Code(s): D61.818 - OTHER PANCYTOPENIA SNOMED Code(s): 887253994 (3) Liver lesion Narrative/Plan: Liver lesions were found incidentally on CT chest. When compared to previous CT the lesions are more in number. Did discuss findings with pt and family, with recommendation from Radiology was to further clarify with MRI so, MRI ordered. Will review results when available Current Visit: Yes Status: Acute Priority: Medium Code(s): K76.9 - LIVER DISEASE, UNSPECIFIED SNOMED Code(s): 298602801 Plan: Did order pt TUMS for indigestion and MOM for constipation
--- NOTE | 2018-07-27 20:16 | MR ---
EXAMINATION TYPE: MR liver wo/w con DATE OF EXAM: 07/27/2018 COMPARISON: HISTORY: abnormal findings on CT CONTRAST: Standard multiplanar, multisequence MRI departmental protocol utilizing 7 mL intravenous Gadavist sushil olinium contrast. FINDINGS: There is a 7.3 cm simple cyst on the lateral right kidney. There is no hydronephrosis. Ther e are multiple simple cysts in the liver that measure up to 5.5 cm in diameter. The bile ducts are no t dilated. Common bile duct measures 5 mm. There are bilateral small renal parapelvic cysts. There is no evidence of pancreatic mass. Pancreatic duct appears normal. Spleen appears normal. There are pul monary infiltrates in both lower lobes. This is worse on the left side. Stomach appears normal. There is no adrenal mass. There is no pathologic enhancement. IMPRESSION: Multiple renal and hepatic cysts. No evidence of a complex cyst. Patchy bilateral lower lobe pulmonar y infiltrate.
[2018-07-27] MEDS: METOPROLOL SUCCINATE (ER) 25 MG TAB.ER.24H PO SCH (20:24)
[2018-07-27] MEDS: ATORVASTATIN 80 MG TAB PO SCH (20:46)
[2018-07-27] MEDS: DOCUSATE 100 MG CAP PO PRN (20:46)
[2018-07-28] MEDS: BUDESONIDE 0.5 MG/2 ML NEBU INHALATION SCH ×2 (08:42→19:28)
[2018-07-28] MEDS: IPRATROPIUM-ALBUTEROL 3 ML NEB INHALATION SCH ×4 (08:42→19:29)
[2018-07-28] MEDS: AZITHROMYCIN 500 MG TAB PO SCH (09:05)
[2018-07-28] MEDS: CALCIUM CARBONATE 500 MG CHEWABLE PO PRN ×2 (09:05→09:06)
[2018-07-28] MEDS: FAMOTIDINE 20 MG TAB PO SCH ×2 (09:05→20:48)
[2018-07-28] MEDS: FUROSEMIDE 20 MG TAB PO SCH (09:05)
--- NOTE | 2018-07-28 10:39 | P.PN ---
Subjective Progress Note Date: 07/28/18 Interval history: 07/27/2018patient is being seen examined and evaluated today on rounds while covering for Dr. Mann. The patient is resting up in bed on 4 L of supplemental oxygen via nasal cannula. The patient does not use oxygen at home. His oxygen is decreased to 3 L and he is satting at 96%. We will continue to slowly wean down oxygen as tolerated. He states he occasionally still does have shortness of breath with exertion. He does have an occasional cough with scant sputum production that is okay to white. He did undergo a CT of the chest yesterday which did show the multifocal pneumonia, hepatic lesions and possible pulmonary fibrosis. He does continue on antibiotics. His white count is 2.7 today. His hemoglobin is stable at 9.0. He is afebrile no further complaints. Has been using his incentive spirometer. 07/28/2018- patient is being seen examined and evaluated today on rounds while covering for Dr. Mann. He patient did have MRI of his liver which did show multiple renal and liver cysts. He is being followed closely by hematology oncology as well. He is also undergoing a possible bone marrow transplant workup with [facility]. He does not wear home oxygen. Overnight he has gone between 2 and half to 3 L. He does get significantly short of breath with exertion and activity. All labs and reports have been reviewed. Patient will require a home oxygen evaluation prior to discharge. Objective - Vital Signs Vital signs: Vital Signs Temp 97.1 F L 07/28/18 08:00 Pulse 82 07/28/18 08:55 Resp 16 07/28/18 08:00 BP 99/59 07/28/18 08:00 Pulse Ox 96 07/28/18 08:00 Intake & Output 07/27/18 07/28/18 07/28/18 18:59 06:59 18:59 Intake Total 480 180 Output Total 400 300 Balance 80 -300 180 Weight 70.2 kg Intake: Oral 480 180 Output: Urine 400 300 Other: Voiding Method Urinal Urinal # Voids 2 - Exam GENERAL EXAM: Alert, active, comfortable in no apparent distress. HEAD: Normocephalic. EYES: Normal reaction of pupils, equal size. NOSE: Clear with pink turbinates. THROAT: No erythema or exudates. NECK: No masses, no JVD. CHEST: No chest wall deformity. LUNGS: Equal air entry with no crackles, wheeze, rhonchi or dullness. CVS: S1 and S2 normal with no audible mumurs, regular rhythm. ABDOMEN: No hepatosplenomegaly, normal bowel sounds, no guarding or rigidity. EXTREMITIES: No edema noted, pedal pulses palpable. CENTRAL NERVOUS SYSTEM: No focal deficits, tone is normal in all 4 extremities. 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 Continue with antibiotics as ordered Hematology/oncology following for pancytopenia CT of the chest reviewed Continue to monitor for any further bleeding and hemoglobin Continue with pulmonary hygiene, coughing and deep breathing exercises, and supportive care. Supplemental oxygen to maintain oxygen saturations of 92% or better. Patient will need to undergo a home oxygen evaluation prior to discharge Continue nebulizer treatments. GI and DVT prophylaxis- Protonix and SCDs, no anticoagulants due to recent bleeding. We will continue to monitor labs/results and adjust treatment as necessary. Further recommendations pending. Please note we are covering for Dr. Johnathan Sherman, the signing physician performed an examination of the patient, discussed and directed their management with the nurse practitioner. I have reviewed the nurse practitioner's note and agree with the documented findings, orders and plan of care. Nurse practitioner acting as scribe for the signing physician.
--- NOTE | 2018-07-28 11:26 | P.PN ---
Subjective Progress Note Date: 07/28/18 Acute blood loss anemia, sepsis associated bilateral pneumonia, near syncope, acute renal failure, intravascular volume depletion and dehydration, history of myelodysplastic disorder, history of coronary artery disease with stent placement, trauma to the 4 head 07/23/2018, patient seen eval examined during the rounds, blood pressure remains marginal however beta blockers are being kept on hold, hemoglobin slightly trickle down but overall remains stable labs reviewed medications reviewed x-ray finding reviewed as well the pneumonia appears to be slowly clearing up care plan discussed with the patient as well as staff at length critical care time spent 35 minutes 07/22/2018, patient seen eval examined during the rounds his hemodynamic status remains marginal blood pressure continued to run on the lower side, patient has been resuscitated with crystalloid for over 3-1/2 L also on maintenance fluid, urine output has picked up now about 30-50 mL an hour, lobe and dropped down to 6.2 he is a scheduled to get 2 unit of packed RBC, during the blood transfusion patient was seen evaluated examined the hemodynamics slightly better, patient has good 2 peripheral IVs, shortness of breath is stable, patient will get the 40 mg of furosemide after second unit of blood pressure remains stable labs reviewed medications reviewed care plan discussed with the patient as well as sister present at bedside, patient is status post echocardiogram which revealed ejection fraction of 50-55% On 07/25/2018 patient is currently resting in bed. Patient remains on Rocephin and Zithromax. At this time patient denies chest pain or shortness of breath. Patient denies nausea vomiting or diarrhea. Patient denies any urinary burning or frequency On 07/26/2018 patient is currently resting in bed. Patient is complaining of some increased heartburn. Tums will be added. Patient denies chest pain. Patient is still complaining of productive cough. Patient denies nausea vomiting or diarrhea. Patient denies any urinary burning or frequency. Patient complains of constipation. continue Colace and encouraged early ambulation On 07/27/2018 patient is currently alert and oriented 3 resting comfortably in bed. At this time patient still is complaining of cough with congestion. Patient remains on IV antibiotics. Pulmonary services are following. Patient denies nausea vomiting or diarrhea. Patient denies any urinary burning or frequency On 07/28/2018 patient is alert and oriented 3. Patient does state he feels slightly more improved than yesterday. Patient remains on 2-3 L nasal cannula. Patient does not wear home oxygen. Encouraged weaning of oxygen if possible. Patient will have to undergo home oxygen evaluation prior to discharge. At this time patient denies chest pain. Shortness of breath has improved. Patient denies nausea vomiting or diarrhea. Patient denies any urinary burning or frequency Objective - Vital Signs Vital signs: Vital Signs Temp 97.1 F L 07/28/18 08:00 Pulse 82 07/28/18 08:55 Resp 16 07/28/18 08:00 BP 99/59 07/28/18 08:00 Pulse Ox 96 07/28/18 08:00 Intake & Output 07/27/18 07/28/18 07/28/18 18:59 06:59 18:59 Intake Total 480 180 Output Total 400 300 Balance 80 -300 180 Weight 70.2 kg Intake: Oral 480 180 Output: Urine 400 300 Other: Voiding Method Urinal Urinal Urinal # Voids 2 - Exam Head normocephalic Neck supple Lungs clear to auscultation bilaterally no wheezing or crackles Heart regular rate and rhythm S1-S2, no rub or gallop Abdomen is soft nontender nondistended positive bowel sounds no hepatosplenomegaly Extremities no edema Neuro alert and orientated to 3 - Labs CBC & Chem 7: 07/26/18 04:43 07/26/18 04:43 Labs: Microbiology - Last 24 Hours (Table) 07/21/18 13:15 Blood Culture - Final Blood No Growth after 144 hours Assessment and Plan Assessment: 1. Hypovolemic shock related to acute bleed from trauma to forehead laceration. Patient received 2 units PRBCs. Will resume Lopressor with parameters 2. Sepsis associated with bilateral pneumonia. Repeat chest x-ray completed showing minimal bibasilar subsegmental atelectasis and findings suggesting underlying COPD. Partially visualized right mid diaphysis a intramedullary mixed sclerotic and lytic possibly expansible lesion was not imaged in the field -of-view on prior chest radiographs dedicated right humeral radiographs are recommended for further eval. Dr. Johnathan kumar for pulmonary services. Blood culture currently showing no growth. Urine culture showing no growth. sputum culture pending. Rocephin and Zithromax for antibiotics 3. Acute blood loss anemia. Patient received 2 units of PRBCs 4. Near Syncopal episode. 2-D echo completed showing an EF of 55-60%. Per cardiology services no cardiac workup needed likely due to anemia 5. Acute renal failure. Resolved 6. Intravascular volume depletion and dehydration 7. History of myelodysplastic disorder. Oncology services are following her oncology service is patient is currently working with a bone marrow transplant team at [facility]. MRI of the liver completed showing multiple renal and hepatic cysts no evidence of complexes. Patchy bilateral lower lobe pulmonary infiltrate. Discussed case with oncology services no further workup needed 8. History of coronary artery disease and stent placement 9. Trauma to 4 head related to fall status post suturing 10. Pancytopenia. Related to MDS. Oncology services are following. 11. Constipation. Continue Colace encourage early ambulation DVT prophylaxis SCDs due to thrombocytopenia and bleeding. GI prophylaxis Protonix Encouraged ambulation and weaning of O2. Patient will need home oxygen test prior to discharge. Possible discharge in the next 24-48 hours I performed an examination of the patient and discussed their management with the Nurse Practitioner. I have reviewed the Nurse Practitioner's notes and agree with the documented findings and plan of care
--- NOTE | 2018-07-28 18:07 | P.PN ---
Subjective Progress Note Date: 07/28/18 Principal diagnosis: trauma post fall, MDS awaiting SCT at [facility] Pt seen today in f/u, he is feeling better, appetite is improving, no bleeding to report, denies GRIMM or vision changes Objective - Vital Signs Vital signs: Vital Signs Temp 97.1 F L 07/28/18 08:00 Pulse 93 07/28/18 16:00 Resp 16 07/28/18 17:07 BP 99/59 07/28/18 16:00 Pulse Ox 87 L 07/28/18 17:07 Intake & Output 07/27/18 07/28/18 07/28/18 18:59 06:59 18:59 Intake Total 480 410 Output Total 400 300 200 Balance 80 -300 210 Weight 70.2 kg Intake: IV 50 cefTRIAXone 1,000 mg In 50 Sodium Chloride 0.9% 50 ml @ 100 mls/hr IVPB Q24HR [facility] Rx#:[id number] Oral 480 360 Output: Urine 400 300 200 Other: Voiding Method Urinal Urinal Urinal # Voids 2 - Exam WD, thin built, NAD, respirations even and unlabored, right eye bruised, stitches intact - Psychiatric Psychiatric: Present: A&O x's 3, appropriate affect, intact judgment & insight - Labs CBC & Chem 7: 07/26/18 04:43 07/26/18 04:43 Labs: Microbiology - Last 24 Hours (Table) 07/21/18 13:15 Blood Culture - Final Blood No Growth after 144 hours - Imaging and Cardiology MRI - abdomen: report reviewed Assessment and Plan (1) MDS (myelodysplastic syndrome) Narrative/Plan: Pt is working with BMT team at [facility]. They will cont f/u as scheduled. Current Visit: Yes Status: Acute Priority: High Code(s): D46.9 - MYELODYSPLASTIC SYNDROME, UNSPECIFIED SNOMED Code(s): 495529423 (2) Pancytopenia Narrative/Plan: CBC is low but, stable. PRBC transfusion for Hgb <7. Please order irradiated, CMV negative blood products. Transfuse very conservatively. Platelets are at pt baseline, 30-40,000 range. No asa, NSAIDs, anticoagulation. Close monitoring for bleeding. Please order irradiated, CMV negative blood products if needed. WBC/ANC low but adequate, no intervention at this time. Please, do not administer GCSF unless cleared with Hem/Onc Current Visit: Yes Status: Chronic Priority: High Code(s): D61.818 - OTHER PANCYTOPENIA SNOMED Code(s): 173832532 (3) Liver lesion Narrative/Plan: MRI of liver reports cycts, this was discussed pt and family. No further interventions at this time Current Visit: Yes Status: Acute Priority: Medium Code(s): K76.9 - LIVER DISEASE, UNSPECIFIED SNOMED Code(s): 642965231
[2018-07-28 20:36] VITALS: RESP 18
[2018-07-28] MEDS: METOPROLOL SUCCINATE (ER) 25 MG TAB.ER.24H PO SCH (20:48)
[2018-07-28] MEDS: ATORVASTATIN 80 MG TAB PO SCH (20:48)
[2018-07-29 06:55] LABS: HCT 28.8 % (39.0-53.0); HGB 9.2 gm/dL (13.0-17.5); Hypochromasia Slight; MCH 29.8 pg (25.0-35.0); MCHC 31.9 g/dL (31.0-37.0); MCV 93.5 fL (80.0-100.0); Mean Platelet Volume 10.2; RBC 3.08 m/uL (4.30-5.90); RDW 15.9 % (11.5-15.5)
[2018-07-29 07:14] LABS: Calcium 9.1 mg/dL (8.4-10.2); Potassium 3.9 mmol/L (3.5-5.1)
[2018-07-29 07:26] LABS: Platelet Count 48 k/uL (150-450)
[2018-07-29 07:28] LABS: WBC 1.4 k/uL (3.8-10.6)
[2018-07-29] MEDS: BUDESONIDE 0.5 MG/2 ML NEBU INHALATION SCH (09:22)
[2018-07-29] MEDS: FAMOTIDINE 20 MG TAB PO SCH (09:22)
[2018-07-29] MEDS: AZITHROMYCIN 500 MG TAB PO SCH (09:22)
[2018-07-29] MEDS: IPRATROPIUM-ALBUTEROL 3 ML NEB INHALATION SCH ×2 (09:22→13:05)
[2018-07-29] MEDS: FUROSEMIDE 20 MG TAB PO SCH (09:22)
[2018-07-29 10:30] VITALS: BMI 21.5
[2018-07-29 11:00] VITALS: BP 99/62; PULSE 82; TEMP 97.6
--- NOTE | 2018-07-29 15:12 | P.PN ---
Subjective Progress Note Date: 07/29/18 Interval history: 07/27/2018patient is being seen examined and evaluated today on rounds while covering for Dr. Mann. The patient is resting up in bed on 4 L of supplemental oxygen via nasal cannula. The patient does not use oxygen at home. His oxygen is decreased to 3 L and he is satting at 96%. We will continue to slowly wean down oxygen as tolerated. He states he occasionally still does have shortness of breath with exertion. He does have an occasional cough with scant sputum production that is okay to white. He did undergo a CT of the chest yesterday which did show the multifocal pneumonia, hepatic lesions and possible pulmonary fibrosis. He does continue on antibiotics. His white count is 2.7 today. His hemoglobin is stable at 9.0. He is afebrile no further complaints. Has been using his incentive spirometer. 07/28/2018- patient is being seen examined and evaluated today on rounds while covering for Dr. Mann. He patient did have MRI of his liver which did show multiple renal and liver cysts. He is being followed closely by hematology oncology as well. He is also undergoing a possible bone marrow transplant workup with [facility]. He does not wear home oxygen. Overnight he has gone between 2 and half to 3 L. He does get significantly short of breath with exertion and activity. All labs and reports have been reviewed. Patient will require a home oxygen evaluation prior to discharge. 07/29/2018- patient is being seen examined and evaluated today on rounds. He is resting up in bed on room air. States he did not use oxygen overnight. Patient states he doesn't even think he needs oxygen. Home oxygen assessment was completed and verified that the patient's oxygen saturations never dropped below 88%. He stayed 91% or above. Patient is requesting to go home. All labs and reports have been reviewed. Patient's hemodynamically stable and respiratory status is stable. Objective - Vital Signs Vital signs: Vital Signs Temp 97.6 F 07/29/18 10:59 Pulse 82 07/29/18 13:17 Resp 18 07/29/18 12:00 BP 99/62 07/29/18 10:59 Pulse Ox 93 L 07/29/18 10:59 Intake & Output 07/28/18 07/29/18 07/29/18 18:59 06:59 18:59 Intake Total 410 240 Output Total 200 350 Balance 210 -350 240 Weight 70 kg 70 kg Intake: IV 50 cefTRIAXone 1,000 mg In 50 Sodium Chloride 0.9% 50 ml @ 100 mls/hr IVPB Q24HR [facility] Rx#:[id number] Oral 360 240 Output: Urine 200 350 Other: Voiding Method Urinal Urinal # Voids 0 - Exam GENERAL EXAM: Alert, active, comfortable in no apparent distress. HEAD: Normocephalic. EYES: Normal reaction of pupils, equal size. NOSE: Clear with pink turbinates. THROAT: No erythema or exudates. NECK: No masses, no JVD. CHEST: No chest wall deformity. LUNGS: Equal air entry with no crackles, wheeze, rhonchi or dullness. CVS: S1 and S2 normal with no audible mumurs, regular rhythm. ABDOMEN: No hepatosplenomegaly, normal bowel sounds, no guarding or rigidity. EXTREMITIES: No edema noted, pedal pulses palpable. CENTRAL NERVOUS SYSTEM: No focal deficits, tone is normal in all 4 extremities. 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 Continue with antibiotics as ordered Hematology/oncology following for pancytopenia CT of the chest reviewed Continue to monitor for any further bleeding and hemoglobin Continue with pulmonary hygiene, coughing and deep breathing exercises, and supportive care. Supplemental oxygen to maintain oxygen saturations of 92% or better. Patient will need to undergo a home oxygen evaluation prior to discharge Continue nebulizer treatments. GI and DVT prophylaxis- Protonix and SCDs, no anticoagulants due to recent bleeding. We will continue to monitor labs/results and adjust treatment as necessary. Please note we are covering for Dr. Johnathan Sherman, the signing physician performed an examination of the patient, discussed and directed their management with the nurse practitioner. I have reviewed the nurse practitioner's note and agree with the documented findings, orders and plan of care. Nurse practitioner acting as scribe for the signing physician.
--- NOTE | 2018-07-29 15:22 | P.DS ---
Providers Date of admission: 07/21/18 12:48 Expected date of discharge: 07/29/18 Attending physician: Cindy Cervantes Consults: 07/21/18 12:46 Consult Physician Stat Consulting Provider: Cheko Sorto Consult Reason/Comments: history of blood disorder Do you want consulting provider notified?: Yes 07/21/18 18:11 Consult Physician Routine Consulting Provider: Timothy Bernardo Consult Reason/Comments: positive troponins Do you want consulting provider notified?: Yes 07/25/18 11:06 Consult Physician Routine Consulting Provider: Ishmael Mann Consult Reason/Comments: Pulmonary Do you want consulting provider notified?: Yes Primary care physician: Cindy Cervantes [facility] Course: Discharge diagnosis 1. Hypovolemic shock related to acute bleed from trauma to forehead laceration. Patient received 2 units PRBCs. Patient's Lopressor will be DC'd upon discharge due to lower blood pressure. 2. Sepsis associated with bilateral pneumonia. Repeat chest x-ray completed showing minimal bibasilar subsegmental atelectasis and findings suggesting underlying COPD. Partially visualized right mid diaphysis a intramedullary mixed sclerotic and lytic possibly expansible lesion was not imaged in the field -of-view on prior chest radiographs dedicated right humeral radiographs are recommended for further eval. Dr. Mann following for pulmonary services. Blood culture currently showing no growth. Urine culture showing no growth. sputum culture pending. Rocephin and Zithromax for antibiotics. Patient will be DC' d home on Ceftin for an additional week. Patient advised to follow-up closely with automotive machinist apprentice and PCP 3. Acute blood loss anemia. Patient received 2 units of PRBCs 4. Near Syncopal episode. 2-D echo completed showing an EF of 55-60%. Per cardiology services no cardiac workup needed likely due to anemia 5. Acute renal failure. Resolved 6. Intravascular volume depletion and dehydration 7. History of myelodysplastic disorder. Oncology services are following her oncology service is patient is currently working with a bone marrow transplant team at [facility]. MRI of the liver completed showing multiple renal and hepatic cysts no evidence of complexes. Patchy bilateral lower lobe pulmonary infiltrate. Discussed case with oncology services no further workup needed 8. History of coronary artery disease and stent placement 9. Trauma to 4 head related to fall status post suturing. Patient to follow-up with PCP for suture removal 10. Pancytopenia. Related to MDS. Oncology services are following. 11. Constipation. Continue Colace encourage early ambulation. Resolved Hospital course Acute blood loss anemia, sepsis associated bilateral pneumonia, near syncope, acute renal failure, intravascular volume depletion and dehydration, history of myelodysplastic disorder, history of coronary artery disease with stent placement, trauma to the 4 head 07/23/2018, patient seen eval examined during the rounds, blood pressure remains marginal however beta blockers are being kept on hold, hemoglobin slightly trickle down but overall remains stable labs reviewed medications reviewed x-ray finding reviewed as well the pneumonia appears to be slowly clearing up care plan discussed with the patient as well as staff at length critical care time spent 35 minutes 07/22/2018, patient seen eval examined during the rounds his hemodynamic status remains marginal blood pressure continued to run on the lower side, patient has been resuscitated with crystalloid for over 3-1/2 L also on maintenance fluid, urine output has picked up now about 30-50 mL an hour, lobe and dropped down to 6.2 he is a scheduled to get 2 unit of packed RBC, during the blood transfusion patient was seen evaluated examined the hemodynamics slightly better, patient has good 2 peripheral IVs, shortness of breath is stable, patient will get the 40 mg of furosemide after second unit of blood pressure remains stable labs reviewed medications reviewed care plan discussed with the patient as well as sister present at bedside, patient is status post echocardiogram which revealed ejection fraction of 50-55% On 07/25/2018 patient is currently resting in bed. Patient remains on Rocephin and Zithromax. At this time patient denies chest pain or shortness of breath. Patient denies nausea vomiting or diarrhea. Patient denies any urinary burning or frequency On 07/26/2018 patient is currently resting in bed. Patient is complaining of some increased heartburn. Tums will be added. Patient denies chest pain. Patient is still complaining of productive cough. Patient denies nausea vomiting or diarrhea. Patient denies any urinary burning or frequency. Patient complains of constipation. continue Colace and encouraged early ambulation On 07/27/2018 patient is currently alert and oriented 3 resting comfortably in bed. At this time patient still is complaining of cough with congestion. Patient remains on IV antibiotics. Pulmonary services are following. Patient denies nausea vomiting or diarrhea. Patient denies any urinary burning or frequency On 07/28/2018 patient is alert and oriented 3. Patient does state he feels slightly more improved than yesterday. Patient remains on 2-3 L nasal cannula. Patient does not wear home oxygen. Encouraged weaning of oxygen if possible. Patient will have to undergo home oxygen evaluation prior to discharge. At this time patient denies chest pain. Shortness of breath has improved. Patient denies nausea vomiting or diarrhea. Patient denies any urinary burning or frequency On 07/29/2018 patient is alert and oriented 3. Patient expressed that he does feel ready to go home. Patient has been up ambulating without oxygen and maintaining oxygen saturation above 90%. Patient will be DC'd home on Ceftin for antibiotics. And Lasix. Patient's Lopressor will be DC'd due to lower blood pressure. Patient to follow-up with PCP and consulting providers. At this time patient denies chest pain or shortness breath. Patient denies nausea vomiting or diarrhea. Patient denies any urinary burning or frequency. Patient Condition at Discharge: Stable Plan - Discharge Summary Discharge Rx Participant: No New Discharge Prescriptions: New Furosemide [Lasix] 20 mg PO DAILY #30 tab Cefuroxime Axetil [Ceftin] 500 mg PO BID 7 Days #14 tab Continue Folic Acid 1 mg PO HS Ergocalciferol (Vitamin D2) [Drisdol] 50,000 unit PO Q7D Famotidine [Pepcid] 20 mg PO DAILY Atorvastatin [Lipitor] 80 mg PO DAILY Discontinued Metoprolol Succinate (ER) [Toprol XL] 25 mg PO HS Discharge Medication List Ergocalciferol (Vitamin D2) [Drisdol] 50,000 unit PO Q7D 01/09/16 [History] Folic Acid 1 mg PO HS 01/09/16 [History] Atorvastatin [Lipitor] 80 mg PO DAILY 07/21/18 [History] Famotidine [Pepcid] 20 mg PO DAILY 07/21/18 [History] Cefuroxime Axetil [Ceftin] 500 mg PO BID 7 Days #14 tab 07/29/18 [Rx] Furosemide [Lasix] 20 mg PO DAILY #30 tab 07/29/18 [Rx] Follow up Appointment(s)/Referral(s): Cheko Sorto MD [STAFF PHYSICIAN] - 1 Week [facility], [NON-STAFF] - 1-2 Days Cindy Cervantes MD [Primary Care Provider] - 1-2 days Ishmael Mann MD [STAFF PHYSICIAN] - 1 Week Activity/Diet/Wound Care/Special Instructions: Activity as tolerated Diet regular Patient to follow-up with Ed for his cancer treatment Discharge Disposition: HOME SELF-CARE
[2018-07-30] MEDS ORDERED: FAMOTIDINE 20 MG TAB PO SCH (09:00)
== END 2018-07-29 16:30 | disposition home health service (06) | DRG 871 ==
LOC: EC 10:13 → 4MS4W 12:48 → 2SICU 16:08 → 3SCARD 07-27 05:14
PROVIDERS: ADMIT Internal Medicine; ATTEND Internal Medicine
PROC: 0HQ1XZZ Repair Face Skin, External Approach (ICD-10-PCS; 2018-07-21)
PROC: 30233N1 Transfusion of Nonautologous Red Blood Cells into Peripheral Vein, Percutaneous Approach (ICD-10-PCS; principal; 2018-07-22)
DX: A41.9 Sepsis, unspecified organism (principal); J18.9 Pneumonia, unspecified organism; J96.01 Acute respiratory failure with hypoxia; R57.1 Hypovolemic shock; D62 Acute posthemorrhagic anemia; N17.9 Acute kidney failure, unspecified; J84.10 Pulmonary fibrosis, unspecified; D46.9 Myelodysplastic syndrome, unspecified; E78.5 Hyperlipidemia, unspecified; I10 Essential (primary) hypertension; I25.10 Atherosclerotic heart disease of native coronary artery without angina pectoris; I25.2 Old myocardial infarction; K59.00 Constipation, unspecified; S01.81XA Laceration without foreign body of other part of head, initial encounter; S00.83XA Contusion of other part of head, initial encounter; R55 Syncope and collapse; N28.1 Cyst of kidney, acquired; K76.89 Other specified diseases of liver; M06.9 Rheumatoid arthritis, unspecified; Z79.899 Other long term (current) drug therapy; Z88.2 Allergy status to sulfonamides; Z87.898 Personal history of other specified conditions; Z95.5 Presence of coronary angioplasty implant and graft; Z87.891 Personal history of nicotine dependence; Z92.21 Personal history of antineoplastic chemotherapy; Z80.1 Family history of malignant neoplasm of trachea, bronchus and lung; Z82.49 Family history of ischemic heart disease and other diseases of the circulatory system; W18.39XA Other fall on same level, initial encounter; Y92.003 Bedroom of unspecified non-institutional (private) residence as the place of occurrence of the external cause
CPT/HCPCS: 12011; 36415; 70450; 70486; 71045; 71046; 71250; 72125; 74183; 80048; 80053; 81001; 82550; 82553; 83605; 83735; 84100; 84132; 84484; 85025; 85027; 85610; 85730; 86850; 86900; 86901; 86920; 87040; 87070; 87086; 87205; 90471; 90715; 93005; 93306; 94640; 96361; 96365; 96367; 99285

== ENCOUNTER 2018-08-22 14:41 | Emergency (ER) | payer MEDICARE ==
[2018-08-22 14:46] VITALS: BP 124/74; PULSE 99; RESP 18; TEMP 97.5
[2018-08-22] MEDS ORDERED: SILVER NITRATE APPLICATOR 1 EACH STICK..EA. TOPICAL STA (15:03)
[2018-08-22] MEDS ORDERED: GELATIN SPONGE,ABSORB (LARGE) 1 EACH SPONGE TOPICAL STA (15:03)
[2018-08-22] MEDS ORDERED: LIDOCAINE/EPINEPHR/TETRACAINE 5 ML BOTTLE TOPICAL ONE (15:04)
--- NOTE | 2018-08-22 15:06 | ED ---
General Adult HPI - General Chief complaint: Recheck/Abnormal Lab/Rx Stated complaint: bone marrow biopsy done & will not stop bleeding Time Seen by Provider: 08/22/18 14:48 Source: patient, RN notes reviewed, old records reviewed Mode of arrival: ambulatory Limitations: no limitations - History of Present Illness Initial comments: 77-year-old male presents emergency department today with complaints of bleeding from his recent bone marrow biopsy. Patient reports that he had a biopsy from his right hip. He is told that time that his platelets were low at 41. Patient states that he had the biopsy and Wednesday. He remove the dressing last night and reports he's had a slow steady bleed from the site since that time. Patient states that he has had biopsies before without any significant bleed like this. Patient states that he is not on any blood thinners. He denies any other complaints at this time. - Related Data Home Medications Medication Instructions Recorded Confirmed Ergocalciferol (Vitamin D2) 50,000 unit PO Q7D 01/09/16 07/21/18 [Drisdol] Folic Acid 1 mg PO HS 01/09/16 07/21/18 Atorvastatin [Lipitor] 80 mg PO DAILY 07/21/18 07/21/18 Famotidine [Pepcid] 20 mg PO DAILY 07/21/18 07/21/18 Previous Rx's Medication Instructions Recorded Cefuroxime Axetil [Ceftin] 500 mg PO BID 7 Days #14 tab 07/29/18 Furosemide [Lasix] 20 mg PO DAILY #30 tab 07/29/18 Allergies Allergy/AdvReac Type Severity Reaction Status Date / Time Sulfa (Sulfonamide Allergy tongue Verified 08/22/18 14:43 Antibiotics) swelling Review of Systems ROS Statement: Those systems with pertinent positive or pertinent negative responses have been documented in the HPI. ROS Other: All systems not noted in ROS Statement are negative. Past Medical History Past Medical History: Cancer, Hyperlipidemia, Hypertension, Myocardial Infarction ([place]), Pneumonia, Rheumatoid Arthritis ([place]), Skin Disorder Additional Past Medical History / Comment(s): HX Chemo 2017 FOR MDS , REFRACTORY ANEMIA."past blood transfusion and iron infusion" BRUISING OF SKIN. past exposure to asbestoes while in [employer] Last Myocardial Infarction Date:: 1995 History of Any Multi-Drug Resistant Organisms: None Reported Past Surgical History: Heart Catheterization, Heart Catheterization With Stent, Tonsillectomy Additional Past Surgical History / Comment(s): Angioplasty 20 years ago, one cardiac stent. BONE MARROW BIOPSY.2017 and 2018 Past Anesthesia/Blood Transfusion Reactions: No Reported Reaction Additional Past Anesthesia/Blood Transfusion Reaction / Comment(s): past blood transfusion-pt denies any reaction to it Date of Last Stent Placement:: 2015 Past Psychological History: No Psychological Hx Reported Smoking Status: Former smoker Past Alcohol Use History: Unable to Obtain Past Drug Use History: None Reported - Past Family History Mother Family Medical History: Myocardial Infarction ([place]) Sister(s) Family Medical History: Cancer Father Family Medical History: Cancer Additional Family Medical History / Comment(s): ? lung cancer General Exam - General Exam Comments Initial Comments: 77-year-old male. Alert and oriented. No distress. Limitations: no limitations General appearance: alert, in no apparent distress Head exam: Present: atraumatic, normocephalic, normal inspection Eye exam: Present: normal appearance, PERRL, EOMI. Absent: scleral icterus, conjunctival injection, periorbital swelling ENT exam: Present: normal exam, mucous membranes moist Neck exam: Present: normal inspection. Absent: tenderness, meningismus, lymphadenopathy Respiratory exam: Present: normal lung sounds bilaterally. Absent: respiratory distress, wheezes, rales, rhonchi, stridor Cardiovascular Exam: Present: regular rate, normal rhythm, normal heart sounds. Absent: systolic murmur, diastolic murmur, rubs, gallop, clicks GI/Abdominal exam: Present: soft, normal bowel sounds. Absent: distended, tenderness, guarding, rebound, rigid Extremities exam: Present: normal inspection, full ROM, normal capillary refill , other (Over the right iliac Patient has a small less than 1 cm area of biopsy site that had bleed.). Absent: tenderness, pedal edema, joint swelling, calf tenderness Back exam: Present: normal inspection Neurological exam: Present: alert, oriented X3, CN II-XII intact Psychiatric exam: Present: normal affect, normal mood Course Vital Signs 08/22/18 14:43 Temperature 97.5 F L Pulse Rate 99 Respiratory 18 Rate Blood Pressure 124/74 O2 Sat by Pulse 91 L Oximetry Medical Decision Making - Medical Decision Making Patient is a 77 year old male with bleeding from recent bonemarrow biopsy site. Patient has bleeding controlled with silvernitrate cautery. I used Tegaderm and also applied a layer of Gelfoam over this site. Discussed to follow-up with his oncologist. Patient states he has an appointment next 1-2 days. Discussed keeping the dressing on for the next 24-48 hours. Patient agrees to treatment plan will comply. Return parameters were discussed. Disposition Clinical Impression: Bleeding Disposition: HOME SELF-CARE Condition: Good Additional Instructions: Patient advised to follow-up with her oncologist. Keep the Tegaderm over the area with showering today. Keep the dressing for the next 24-48 hours on. Patient should return to the emergency department if any alarming signs or symptoms occur. Is patient prescribed a controlled substance at d/c from ED?: No Referrals: Cindy Cervantes MD [Primary Care Provider] - 1-2 days Time of Disposition: 15:42
== END 2018-08-22 15:52 | disposition home or self-care (01) ==
LOC: EC 14:41
DX: L76.22 Postprocedural hemorrhage of skin and subcutaneous tissue following other procedure (principal); E78.5 Hyperlipidemia, unspecified; I25.2 Old myocardial infarction; D64.9 Anemia, unspecified; Z85.9 Personal history of malignant neoplasm, unspecified; Z92.21 Personal history of antineoplastic chemotherapy; Z95.818 Presence of other cardiac implants and grafts; Z98.890 Other specified postprocedural states; Z95.5 Presence of coronary angioplasty implant and graft; Z87.891 Personal history of nicotine dependence; Z98.62 Peripheral vascular angioplasty status; Z79.899 Other long term (current) drug therapy; Z88.2 Allergy status to sulfonamides
CPT/HCPCS: 12001; 99283

== ENCOUNTER 2019-07-31 19:05 | Inpatient (IN) | payer MEDICARE ==
[2019-07-31] MEDS ORDERED: SODIUM CHLORIDE 0.9% 500 ML 500 ML IV STA (19:49)
--- NOTE | 2019-07-31 19:54 | ED ---
General Adult HPI - General Chief complaint: Shortness of Breath Stated complaint: cancer pt-weakness/dizziness Time Seen by Provider: 07/31/19 19:31 Source: patient, family Mode of arrival: ambulatory Limitations: no limitations - History of Present Illness Initial comments: Dictation was produced using [employer] dictation software. please excuse any grammatical, word or spelling errors. Chief Complaint: 78-year-old male presents with generalized weakness, cough and dyspnea. History of Present Illness: An is a 78-year-old male patient has multiple comorbidities. Patient's main issue today is generalized weakness cough or shortness of breath. She presents with sister reports that patient has been having medical decline since [place] time. Patient has been more and more weak diffusely. Patient has history of bone marrow transplant. He is on multiple immunosuppressive medications. His primary care doctor's Dr. Cervantes. Patient states he gets most of his cancer care at [facility] in [place]. Patient states she's been having a mild nonproductive cough. Patient has no specific pain complaints. Denies any numbness or paresthesias. The ROS documented in this emergency department record has been reviewed and confirmed by me. Those systems with pertinent positive or negative responses have been documented in the HPI. All other systems are other negative and/or noncontributory. PHYSICAL EXAM: General Impression: Alert and oriented x3, not in acute distress, cachectic HEENT: Normocephalic atraumatic, extra-ocular movements intact, pupils equal and reactive to light bilaterally, dry mucous membranes Cardiovascular: Heart regular rate and rhythm, S1&S2 audible, no murmurs, rubs or gallops Chest: Lungs clear to auscultation bilaterally, no rhonchi, no wheeze, no rales Abdomen: Bowel sounds present, abdomen soft, non-tender, non-distended, no organomegaly Musculoskeletal: Pulses present and equal in all extremities, no peripheral edema Motor: no focal deficits noted Neurological: CN II-XII grossly intact, no focal motor or sensory deficits noted Skin: Intact with no visualized rashes Psych: Normal affect and mood ED course: 77-year-old male with past medical history of bone marrow transplant on immunosuppressive medications presents with generalized weakness cough shortness of breath. Vital signs upon arrival shows blood pressure 91/61, rest of vital signs within acceptable limits. Laboratory evaluation obtained. CBC is grossly unremarkable. Coag panel is negative. Metabolic panel shows slight elevation of renal markers which appear to be around patient's baseline. Patient has hypercalcemia with a measurement of 14.0, lactic acidosis of 2.8. There is elevated alkaline phosphatase. This concerned that patient has cancer related metabolic abnormality. Urinalysis is negative. Chest x-ray shows left lower lobe infiltrate concerning for pneumonia. Given patient's clinical presentation and history of immunosuppressive medications patient will be covered with broad-spectrum antibiotics. Discussed patient case Dr. Barton who is willing to accept patients care. Patient will be dispositioned to telemetry unit with consultation to pulmonology and oncology. Patient reevaluated bedside with improving blood pressures. This appears stable at this time. No indication for intensive care unit admission at this time. EKG interpretation: Ventricular rate 87, sinus rhythm, SC interval 150, QS 90, QTC 452. No SC prolongation, no QTC prolongation, no ST or T-wave changes noted. EKG compared to 02/11/2018 showing no changes. Overall, this EKG is unremarkable - Related Data Home Medications Medication Instructions Recorded Confirmed Folic Acid 1 mg PO DAILY 01/09/16 07/31/19 Acyclovir 400 mg PO BID 07/31/19 07/31/19 Bright Plus Protein 1 tab PO QID 07/31/19 07/31/19 Multivitamins, Thera [Multivitamin 1 tab PO DAILY@0800 07/31/19 07/31/19 (formulary)] Spironolactone 25 mg PO DAILY@1000 07/31/19 07/31/19 Tiotropium 18 Mcg/Puff [Spiriva] 1 puff INHALATION RT-DAILY 07/31/19 07/31/19 Allergies Allergy/AdvReac Type Severity Reaction Status Date / Time Sulfa (Sulfonamide Allergy tongue Verified 07/31/19 20:37 Antibiotics) swelling Review of Systems ROS Statement: Those systems with pertinent positive or pertinent negative responses have been documented in the HPI. ROS Other: All systems not noted in ROS Statement are negative. Past Medical History Past Medical History: Cancer, Hyperlipidemia, Hypertension, Myocardial Infarction ([place]), Pneumonia, Rheumatoid Arthritis ([place]), Skin Disorder Additional Past Medical History / Comment(s): HX Chemo 2017 FOR MDS , REFRACTORY ANEMIA."past blood transfusion and iron infusion" BRUISING OF SKIN. past exposure to asbestoes while in [employer] Last Myocardial Infarction Date:: 1995 History of Any Multi-Drug Resistant Organisms: None Reported Past Surgical History: Heart Catheterization, Heart Catheterization With Stent, Tonsillectomy Additional Past Surgical History / Comment(s): Angioplasty 20 years ago, one cardiac stent. BONE MARROW BIOPSY.2016 and 2017 Past Anesthesia/Blood Transfusion Reactions: No Reported Reaction Additional Past Anesthesia/Blood Transfusion Reaction / Comment(s): past blood transfusion-pt denies any reaction to it Date of Last Stent Placement:: 2015 Past Psychological History: No Psychological Hx Reported Smoking Status: Former smoker Past Alcohol Use History: Unable to Obtain Past Drug Use History: None Reported - Past Family History Mother Family Medical History: Myocardial Infarction ([place]) Sister(s) Family Medical History: Cancer Father Family Medical History: Cancer Additional Family Medical History / Comment(s): ? lung cancer General Exam Limitations: no limitations Course Vital Signs 07/31/19 07/31/19 19:22 20:51 Temperature 97.6 F 97.8 F Pulse Rate 91 79 Respiratory 16 18 Rate Blood Pressure 91/61 102/77 O2 Sat by Pulse 94 L 96 Oximetry Medical Decision Making - Lab Data Result diagrams: 07/31/19 19:45 07/31/19 19:45 Lab Results 07/31/19 07/31/19 07/31/19 Range/Units 19:45 19:45 19:45 WBC 8.9 (3.8-10.6) k/uL RBC 4.82 (4.30-5.90) m/uL Hgb 16.0 (13.0-17.5) gm/dL Hct 49.7 (39.0-53.0) % MCV 103.0 H (80.0-100.0) fL MCH 33.1 (25.0-35.0) pg MCHC 32.2 (31.0-37.0) g/dL RDW 16.2 H (11.5-15.5) % Plt Count 112 L (150-450) k/uL Neutrophils % 77 % Lymphocytes % 14 % Monocytes % 6 % Eosinophils % 0 % Basophils % 1 % Neutrophils # 6.8 (1.3-7.7) k/uL Lymphocytes # 1.2 (1.0-4.8) k/uL Monocytes # 0.6 (0-1.0) k/uL Eosinophils # 0.0 (0-0.7) k/uL Basophils # 0.1 (0-0.2) k/uL Anisocytosis Slight Macrocytosis Slight PT (9.0-12.0) sec INR (<1.2) APTT (22.0-30.0) sec Sodium 141 (137-145) mmol/L Potassium 4.1 (3.5-5.1) mmol/L Chloride 108 H (98-107) mmol/L Carbon Dioxide 28 (22-30) mmol/L Anion Gap 5 mmol/L BUN 52 H (9-20) mg/dL Creatinine 1.32 H (0.66-1.25) mg/dL Est GFR (CKD-EPI)AfAm 60 (>60 ml/min/1.73 sqM) Est GFR (CKD-EPI)NonAf 52 (>60 ml/min/1.73 sqM) Glucose 133 H (74-99) mg/dL Plasma Lactic Acid Tripp 2.8 H* (0.7-2.0) mmol/L Calcium 14.0 H* (8.4-10.2) mg/dL Magnesium 2.5 H (1.6-2.3) mg/dL Total Bilirubin 2.5 H (0.2-1.3) mg/dL AST 57 (17-59) U/L ALT 60 H (4-49) U/L Alkaline Phosphatase 418 H (38-126) U/L Troponin I (0.000-0.034) ng/mL NT-Pro-B Natriuret Pep pg/mL Total Protein 8.1 (6.3-8.2) g/dL Albumin 2.9 L (3.5-5.0) g/dL Urine Color Urine Appearance (Clear) Urine pH (5.0-8.0) Ur Specific [place] (1.001-1.035) Urine Protein (Negative) Urine Glucose (UA) (Negative) Urine Ketones (Negative) Urine Blood (Negative) Urine Nitrite (Negative) Urine Bilirubin (Negative) Urine Urobilinogen (<2.0) mg/dL Ur Leukocyte Esterase (Negative) 07/31/19 07/31/19 07/31/19 Range/Units 19:45 19:45 19:45 WBC (3.8-10.6) k/uL RBC (4.30-5.90) m/uL Hgb (13.0-17.5) gm/dL Hct (39.0-53.0) % MCV (80.0-100.0) fL MCH (25.0-35.0) pg MCHC (31.0-37.0) g/dL RDW (11.5-15.5) % Plt Count (150-450) k/uL Neutrophils % % Lymphocytes % % Monocytes % % Eosinophils % % Basophils % % Neutrophils # (1.3-7.7) k/uL Lymphocytes # (1.0-4.8) k/uL Monocytes # (0-1.0) k/uL Eosinophils # (0-0.7) k/uL Basophils # (0-0.2) k/uL Anisocytosis Macrocytosis PT 11.7 (9.0-12.0) sec INR 1.1 (<1.2) APTT 25.3 (22.0-30.0) sec Sodium (137-145) mmol/L Potassium (3.5-5.1) mmol/L Chloride (98-107) mmol/L Carbon Dioxide (22-30) mmol/L Anion Gap mmol/L BUN (9-20) mg/dL Creatinine (0.66-1.25) mg/dL Est GFR (CKD-EPI)AfAm (>60 ml/min/1.73 sqM) Est GFR (CKD-EPI)NonAf (>60 ml/min/1.73 sqM) Glucose (74-99) mg/dL Plasma Lactic Acid Tripp (0.7-2.0) mmol/L Calcium (8.4-10.2) mg/dL Magnesium (1.6-2.3) mg/dL Total Bilirubin (0.2-1.3) mg/dL AST (17-59) U/L ALT (4-49) U/L Alkaline Phosphatase (38-126) U/L Troponin I 0.017 (0.000-0.034) ng/mL NT-Pro-B Natriuret Pep 784 pg/mL Total Protein (6.3-8.2) g/dL Albumin (3.5-5.0) g/dL Urine Color Urine Appearance (Clear) Urine pH (5.0-8.0) Ur Specific [place] (1.001-1.035) Urine Protein (Negative) Urine Glucose (UA) (Negative) Urine Ketones (Negative) Urine Blood (Negative) Urine Nitrite (Negative) Urine Bilirubin (Negative) Urine Urobilinogen (<2.0) mg/dL Ur Leukocyte Esterase (Negative) 07/31/19 Range/Units 21:07 WBC (3.8-10.6) k/uL RBC (4.30-5.90) m/uL Hgb (13.0-17.5) gm/dL Hct (39.0-53.0) % MCV (80.0-100.0) fL MCH (25.0-35.0) pg MCHC (31.0-37.0) g/dL RDW (11.5-15.5) % Plt Count (150-450) k/uL Neutrophils % % Lymphocytes % % Monocytes % % Eosinophils % % Basophils % % Neutrophils # (1.3-7.7) k/uL Lymphocytes # (1.0-4.8) k/uL Monocytes # (0-1.0) k/uL Eosinophils # (0-0.7) k/uL Basophils # (0-0.2) k/uL Anisocytosis Macrocytosis PT (9.0-12.0) sec INR (<1.2) APTT (22.0-30.0) sec Sodium (137-145) mmol/L Potassium (3.5-5.1) mmol/L Chloride (98-107) mmol/L Carbon Dioxide (22-30) mmol/L Anion Gap mmol/L BUN (9-20) mg/dL Creatinine (0.66-1.25) mg/dL Est GFR (CKD-EPI)AfAm (>60 ml/min/1.73 sqM) Est GFR (CKD-EPI)NonAf (>60 ml/min/1.73 sqM) Glucose (74-99) mg/dL Plasma Lactic Acid Tripp (0.7-2.0) mmol/L Calcium (8.4-10.2) mg/dL Magnesium (1.6-2.3) mg/dL Total Bilirubin (0.2-1.3) mg/dL AST (17-59) U/L ALT (4-49) U/L Alkaline Phosphatase (38-126) U/L Troponin I (0.000-0.034) ng/mL NT-Pro-B Natriuret Pep pg/mL Total Protein (6.3-8.2) g/dL Albumin (3.5-5.0) g/dL Urine Color Dark Yellow Urine Appearance Clear (Clear) Urine pH 5.0 (5.0-8.0) Ur Specific [place] 1.023 (1.001-1.035) Urine Protein Trace H (Negative) Urine Glucose (UA) Negative (Negative) Urine Ketones Negative (Negative) Urine Blood Negative (Negative) Urine Nitrite Negative (Negative) Urine Bilirubin Negative (Negative) Urine Urobilinogen <2.0 (<2.0) mg/dL Ur Leukocyte Esterase Negative (Negative) Disposition Clinical Impression: Pneumonia, Lactic acidosis Disposition: ADMITTED IP TO THIS HOSP Condition: Fair Referrals: Cindy Cervantes MD [Primary Care Provider] - 1-2 days Decision Time: 21:20
--- NOTE | 2019-07-31 20:42 | XR ---
EXAMINATION TYPE: XR chest 2V DATE OF EXAM: 07/31/2019 COMPARISON: 07/26/2018 HISTORY: Cough and short of breath TECHNIQUE: FINDINGS: There is some coarse interstitial density in the left lower lobe. Heart size is normal. The re is no heart failure. There are no hilar masses. There is no pleural effusion. Pulmonary vascularit y is normal. There are chest leads. IMPRESSION: There is a mild left lower lobe pneumonia. There is probably COPD. No heart failure seen. Left lower lobe density appears new compared to old exam.
[2019-07-31 20:47] LABS: Anisocytosis Slight; Basophils # (A) 0.1 k/uL (0-0.2); Basophils % (A) 1 %; Eosinophils % (A) 0 %; HCT 49.7 % (39.0-53.0); Lymphocytes # (A) 1.2 k/uL (1.0-4.8); Lymphocytes % (A) 14 %; MCH 33.1 pg (25.0-35.0); MCHC 32.2 g/dL (31.0-37.0); Macrocytosis Slight; Mean Platelet Volume 9.8; Monocytes # (A) 0.6 k/uL (0-1.0); Monocytes % (A) 6 %; Neutrophils # (A) 6.8 k/uL (1.3-7.7); Neutrophils % (A) 77 %; Platelet Count 112 k/uL (150-450); RBC 4.82 m/uL (4.30-5.90); RDW 16.2 % (11.5-15.5); WBC 8.9 k/uL (3.8-10.6)
[2019-07-31 20:48] LABS: INR 1.1 (<1.2); Partial Thromboplastin Time 25.3 sec (22.0-30.0); Prothrombin Time 11.7 sec (9.0-12.0)
[2019-07-31 20:50] LABS: Albumin 2.9 g/dL (3.5-5.0); Magnesium 2.5 mg/dL (1.6-2.3); Potassium 4.1 mmol/L (3.5-5.1); Total Bilirubin 2.5 mg/dL (0.2-1.3); Total Protein 8.1 g/dL (6.3-8.2)
[2019-07-31] MEDS ORDERED: VANCOMYCIN IV PER PHARMACY 1 EACH MISC MISCELLANE PRN (21:04)
[2019-07-31] MEDS ORDERED: CEFEPIME 2 GM in SODIUM CHLORIDE 0.9% 100 ML IVPB STA (21:09)
[2019-07-31 21:14] LABS: Appearance,Urine Clear (Clear); Bilirubin,Urine Negative (Negative); Blood,Urine Negative (Negative); Color,Urine Dark Yellow; Glucose,Urine (UA) Negative (Negative); Ketones,Urine Negative (Negative); Leukocyte Esterase,Urine Negative (Negative); Nitrite,Urine Negative (Negative); Protein,Urine Trace (Negative); Specific Gravity,Urine 1.023 (1.001-1.035); Urobilinogen,Urine <2.0 mg/dL (<2.0)
[2019-07-31] MEDS ORDERED: VANCOMYCIN 1,250 MG in SODIUM CHLORIDE 0.9% 250 ML IVPB STA (21:14)
[2019-07-31] MEDS ORDERED: NALOXONE 0.4 MG/ML 1 ML VIAL IV PRN (21:17)
[2019-07-31] MEDS ORDERED: ACETAMINOPHEN TAB 325 MG TAB PO PRN (21:17)
[2019-07-31] MEDS ORDERED: ONDANSETRON 4 MG/2 ML VIAL IVP PRN (21:17)
[2019-07-31] MEDS: SODIUM CHLORIDE 0.9% 1,000 ML IV SCH (21:49)
[2019-08-01 06:50] LABS: Potassium 3.9 mmol/L (3.5-5.1)
[2019-08-01] MEDS: SODIUM CHLORIDE 0.9% 1,000 ML IV SCH (06:50)
[2019-08-01 06:52] LABS: Calcium 13.2 mg/dL (8.4-10.2)
[2019-08-01 07:00] LABS: Anisocytosis Slight; HCT 43.8 % (39.0-53.0); HGB 13.8 gm/dL (13.0-17.5); MCH 32.6 pg (25.0-35.0); MCHC 31.5 g/dL (31.0-37.0); MCV 103.5 fL (80.0-100.0); Macrocytosis Moderate; Mean Platelet Volume 9.7; RBC 4.23 m/uL (4.30-5.90); RDW 16.1 % (11.5-15.5); WBC 8.4 k/uL (3.8-10.6)
[2019-08-01 08:13] LABS: Platelet Count 89 k/uL (150-450)
[2019-08-01] MEDS ORDERED: PANTOPRAZOLE 40 MG/10 ML VIAL IV SCH (09:00)
[2019-08-01] MEDS ORDERED: RX INFO: IV CONTRAST WAS GIVEN 1 EACH MISC MISCELLANE PRN (09:33)
[2019-08-01] MEDS ORDERED: SODIUM CHLORIDE 0.9% 250 ML with PAMIDRONATE 30 MG IV ONE ×2 (09:34)
[2019-08-01] MEDS ORDERED: VANCOMYCIN 1,250 MG in SODIUM CHLORIDE 0.9% 250 ML IVPB SCH (11:00)
[2019-08-01] MEDS: VANCOMYCIN 1,250 MG in SODIUM CHLORIDE 0.9% 250 ML IVPB SCH (11:22)
[2019-08-01] MEDS: FOLIC ACID 1 MG TAB PO SCH (11:23)
[2019-08-01] MEDS: SPIRONOLACTONE 25 MG TAB PO SCH (11:23)
[2019-08-01] MEDS ORDERED: IOPAMIDOL CONTRAST (ORAL USE) VIAL PO PRN (11:37)
--- NOTE | 2019-08-01 11:41 | P.CNPUL ---
History of Present Illness Consult date: 08/01/19 Reason for consult: COPD, pneumonia History of present illness: This is a 78-year-old male patient with known history of COPD who presented to the hospital because of weakness, cough, generalized weakness and hypercalcemia. He was in the hospital approximately one year ago with bilateral pneumonia left more than right and sepsis and he was treated back then without any major complications. At that time his calcium level was normal. He has history of myelodysplastic disorder and he had [facility]. He is known to have multiple renal and hepatic cysts based on a previous MRI of the brain. He is known to have coronary artery disease with previous coronary stent placement. The patient has been also progressively losing weight and has lost approximately 75 pounds over this past 1 year. He is currently living independently. No history of any falls. Currently, the patient is a white count of 8.4 with a hemoglobin 13.8 and a platelet count of 89. His creatinine is at 1.25. His calcium the time of admis mayra was 14 is currently down to 13.2. He has a an elevated alkaline phosphatase at 418. AST and ALP are mildly elevated at levels of 57 and 60. UA has been negative. The patient was given a chest x-ray that showed questionable left lower lobe pulmonary infiltrate and for that reason he was started on vancomycin and cefepime. He was also given a dose of pamidronate regarding his hypercalcemia and his calcium level responded. He is currently receiving IV fluids at the rate of 100 mL an hour of normal saline. Review of Systems Constitutional: Reports fatigue, Reports weakness Eyes: denies as per HPI, denies blurred vision, denies bulging eye, denies decreased vision, denies diplopia, denies discharge, denies dry eye, denies irritation, denies itching, denies pain, denies photophobia, denies loss of peripheral vision, denies loss of vision, denies tunnel vision/blind spots Ears: deny: decreased hearing, ear discharge, earache, tinnitus Ears, nose, mouth and throat: Denies headache, Denies sore throat Cardiovascular: Reports decreased exercise tolerance, Reports dyspnea on exertion Respiratory: Reports congestion, Reports cough with sputum, Reports dyspnea Gastrointestinal: Reports as per HPI Genitourinary: Reports as per HPI Musculoskeletal: Reports as per HPI Musculoskeletal: absent: ankle pain, ankle stiffness, ankle swelling, as per HPI, elbow pain, elbow stiffness, elbow swelling, foot pain, foot stiffness, foot swelling, hand pain, hand stiffness, hand swelling, hip pain, hip stiffness, hip swelling, knee pain, knee stiffness, knee swelling, shoulder pain, shoulder stiffness, shoulder swelling, wrist pain, wrist stiffness, wrist swelling Integumentary: Reports as per HPI Neurological: Reports as per HPI Psychiatric: Reports as per HPI Endocrine: Reports as per HPI Hematologic/Lymphatic: Reports as per HPI Allergic/Immunologic: Reports as per HPI Past Medical History Past Medical History: Coronary Artery Disease (CAD), Cancer, Hyperlipidemia, Hypertension, Myocardial Infarction ([place]), Pneumonia, Rheumatoid Arthritis ([place]), Skin Disorder Additional Past Medical History / Comment(s): History of mild dysplasia, previous history of asbestos exposure to the [place], previous history of lower lobe pneumonia, COPD, chronic thrombocytopenia, left upper lobe pulmonary nodule noted in a previous CAT scan of the chest measuring 9 mm in size, coronary artery disease with previous stenting of LAD, hyperlipidemia Last Myocardial Infarction Date:: 1995 History of Any Multi-Drug Resistant Organisms: None Reported Past Surgical History: Heart Catheterization, Heart Catheterization With Stent, Tonsillectomy Additional Past Surgical History / Comment(s): Angioplasty 20 years ago, one cardiac stent. BONE MARROW BIOPSY.2016 and 2017 Past Anesthesia/Blood Transfusion Reactions: No Reported Reaction Additional Past Anesthesia/Blood Transfusion Reaction / Comment(s): past blood transfusion-pt denies any reaction to it Date of Last Stent Placement:: 2015 Past Psychological History: No Psychological Hx Reported Smoking Status: Former smoker Past Alcohol Use History: Unable to Obtain Additional Past Alcohol Use History / Comment(s): Quit smoking 2014, 1 - 1/2 PPD, smoked since age 22 Past Drug Use History: None Reported - Past Family History Mother Family Medical History: Myocardial Infarction ([place]) Sister(s) Family Medical History: Cancer Father Family Medical History: Cancer Additional Family Medical History / Comment(s): ? lung cancer Medications and Allergies Home Medications Medication Instructions Recorded Confirmed Type Folic Acid 1 mg PO DAILY 01/09/16 07/31/19 History Acyclovir 400 mg PO BID 07/31/19 07/31/19 History Bright Plus Protein 1 tab PO QID 07/31/19 07/31/19 History Multivitamins, Thera [Multivitamin 1 tab PO DAILY@0800 07/31/19 07/31/19 History (formulary)] Spironolactone 25 mg PO DAILY@1000 07/31/19 07/31/19 History Tiotropium 18 Mcg/Puff [Spiriva] 1 puff INHALATION RT-DAILY 07/31/19 07/31/19 History Allergies Allergy/AdvReac Type Severity Reaction Status Date / Time Sulfa (Sulfonamide Allergy tongue Verified 07/31/19 20:37 Antibiotics) swelling Physical Exam Vitals: Vital Signs Temp Pulse Pulse Resp BP BP Pulse Ox 08/01/19 08:35 62 18 08/01/19 08:00 96.9 F L 62 18 119/74 93 L 08/01/19 04:00 98 F 68 19 105/55 92 L 07/31/19 23:30 97.8 F 78 18 116/56 90 L 07/31/19 23:13 97.7 F 82 18 98/61 97 07/31/19 21:50 97.5 F L 75 18 112/73 97 07/31/19 20:51 97.8 F 79 18 102/77 96 07/31/19 19:22 97.6 F 91 16 91/61 94 L Intake and Output 07/31/19 08/01/19 08/01/19 22:59 06:59 14:59 Output Total 150 Balance -150 Output: Urine 150 Other: Voiding Method Urinal Urinal Weight 65.771 kg 59.1 kg - Constitutional General appearance: average body habitus, cooperative, disheveled, mild distress - EENT Laceration at the 4 head has been repaired Eyes: EOMI, PERRLA, poor dentition, normal appearance ENT: normal oropharynx Ears: bilateral: normal - Neck Carotids: bilateral: upstroke normal, bruit absent Thyroid: bilateral: normal size - Respiratory Respiratory: bilateral: Breath sounds and scattered expiratory wheezes throughout the lung plasencia bilaterally. There is also prolongation of exhalation phase of breathing and scattered rhonchi and wheezes. - Cardiovascular Rhythm: regular Heart sounds: normal: S1, S2 - Gastrointestinal General gastrointestinal: normal bowel sounds, soft - Neurologic Neurologic: CNII-XII intact - Musculoskeletal Musculoskeletal: gait normal, strength equal bilaterally - Psychiatric Psychiatric: A&O x's 3, appropriate affect, intact judgment & insight Results - Laboratory Findings CBC and BMP: 08/01/19 05:56 08/01/19 05:56 ABG WBC 8.4 k/uL (3.8-10.6) 08/01/19 05:56 RBC 4.23 m/uL (4.30-5.90) L 08/01/19 05:56 Hgb 13.8 gm/dL (13.0-17.5) 08/01/19 05:56 Hct 43.8 % (39.0-53.0) 08/01/19 05:56 MCV 103.5 fL (80.0-100.0) H 08/01/19 05:56 MCH 32.6 pg (25.0-35.0) 08/01/19 05:56 MCHC 31.5 g/dL (31.0-37.0) 08/01/19 05:56 RDW 16.1 % (11.5-15.5) H 08/01/19 05:56 Plt Count 89 k/uL (150-450) L 08/01/19 05:56 Neutrophils % 77 % 07/31/19 19:45 Lymphocytes % 14 % 07/31/19 19:45 Monocytes % 6 % 07/31/19 19:45 Eosinophils % 0 % 07/31/19 19:45 Basophils % 1 % 07/31/19 19:45 Neutrophils # 6.8 k/uL (1.3-7.7) 07/31/19 19:45 Lymphocytes # 1.2 k/uL (1.0-4.8) 07/31/19 19:45 Monocytes # 0.6 k/uL (0-1.0) 07/31/19 19:45 Eosinophils # 0.0 k/uL (0-0.7) 07/31/19 19:45 Basophils # 0.1 k/uL (0-0.2) 07/31/19 19:45 Anisocytosis Slight 08/01/19 05:56 Macrocytosis Moderate 08/01/19 05:56 PT 11.7 sec (9.0-12.0) 07/31/19 19:45 INR 1.1 (<1.2) 07/31/19 19:45 APTT 25.3 sec (22.0-30.0) 07/31/19 19:45 Sodium 142 mmol/L (137-145) 08/01/19 05:56 Potassium 3.9 mmol/L (3.5-5.1) 08/01/19 05:56 Chloride 112 mmol/L (98-107) H 08/01/19 05:56 Carbon Dioxide 27 mmol/L (22-30) 08/01/19 05:56 Anion Gap 3 mmol/L 08/01/19 05:56 BUN 48 mg/dL (9-20) H 08/01/19 05:56 Creatinine 1.25 mg/dL (0.66-1.25) 08/01/19 05:56 Est GFR (CKD-EPI)AfAm 65 (>60 ml/min/1.73 sqM) 08/01/19 05:56 Est GFR (CKD-EPI)NonAf 56 (>60 ml/min/1.73 sqM) 08/01/19 05:56 Glucose 104 mg/dL (74-99) H 08/01/19 05:56 Lactic Ac Sepsis Rflx Y 07/31/19 20:56 Plasma Lactic Acid Tripp 1.4 mmol/L (0.7-2.0) 08/01/19 00:16 Calcium 13.2 mg/dL (8.4-10.2) H* 08/01/19 05:56 Magnesium 2.5 mg/dL (1.6-2.3) H 07/31/19 19:45 Total Bilirubin 2.5 mg/dL (0.2-1.3) H 07/31/19 19:45 AST 57 U/L (17-59) 07/31/19 19:45 ALT 60 U/L (4-49) H 07/31/19 19:45 Alkaline Phosphatase 418 U/L (38-126) H 07/31/19 19:45 Troponin I 0.017 ng/mL (0.000-0.034) 07/31/19 19:45 NT-Pro-B Natriuret Pep 784 pg/mL 07/31/19 19:45 Total Protein 8.1 g/dL (6.3-8.2) 07/31/19 19:45 Albumin 2.9 g/dL (3.5-5.0) L 07/31/19 19:45 Urine Color Dark Yellow 07/31/19 21:07 Urine Appearance Clear (Clear) 07/31/19 21:07 Urine pH 5.0 (5.0-8.0) 07/31/19 21:07 Ur Specific Eek 1.023 (1.001-1.035) 07/31/19 21:07 Urine Protein Trace (Negative) H 07/31/19 21:07 Urine Glucose (UA) Negative (Negative) 07/31/19 21:07 Urine Ketones Negative (Negative) 07/31/19 21:07 Urine Blood Negative (Negative) 07/31/19 21:07 Urine Nitrite Negative (Negative) 07/31/19 21:07 Urine Bilirubin Negative (Negative) 07/31/19 21:07 Urine Urobilinogen <2.0 mg/dL (<2.0) 07/31/19 21:07 Ur Leukocyte Esterase Negative (Negative) 07/31/19 21:07 PT/INR, D-dimer PT 11.7 sec (9.0-12.0) 07/31/19 19:45 INR 1.1 (<1.2) 07/31/19 19:45 Abnormal lab findings: Abnormal Labs 07/31/19 07/31/19 07/31/19 19:45 19:45 19:45 RBC MCV 103.0 H RDW 16.2 H Plt Count 112 L Chloride 108 H BUN 52 H Creatinine 1.32 H Glucose 133 H Plasma Lactic Acid Tripp 2.8 H* Calcium 14.0 H* Magnesium 2.5 H Total Bilirubin 2.5 H ALT 60 H Alkaline Phosphatase 418 H Albumin 2.9 L Urine Protein 07/31/19 08/01/19 08/01/19 21:07 05:56 05:56 RBC 4.23 L MCV 103.5 H RDW 16.1 H Plt Count 89 L Chloride 112 H BUN 48 H Creatinine Glucose 104 H Plasma Lactic Acid Tripp Calcium 13.2 H* Magnesium Total Bilirubin ALT Alkaline Phosphatase Albumin Urine Protein Trace H - Diagnostic Findings Chest x-ray: image reviewed Assessment and Plan Plan: 1 acute COPD exacerbation with secondary shortness of breath 2 chronic COPD with previous history of bilateral lower lobe pneumonia left more than right based on the CAT scan of the chest that was done July 2018. The patient has been maintained on Spiriva on outpatient basis. 3 left upper lobe pulmonary nodule, 9 mm in size based on the previous CAT scan of the chest that was done July 2018 4 history of myelodysplasia , 5 chronic thrombocytopenia 6 acute hypercalcemia, consider malignancy especially that there is elevation of alkaline phosphatase. Rule out skeletal metastases. Rule out hepatic metastases. 7 coronary artery disease with previous stenting of the LAD 8 hyperlipidemia 9 constitutions symptoms along with 75 pounds in weight loss Plan Continue IV fluids Pamidronate and follow-up calcium level CAT scan of the chest , abdomen and pelvis As part of a malignancy workup. Proceed with a bone scan. Continue cefepime and vancomycin and will make further adjustments of and antibiotics accordingly Continue bronchodilators Sputum Gram stain and culture Oncology follow-up regarding his chronic myelodysplasia We'll follow
[2019-08-01] MEDS: IPRATROPIUM 0.5 MG/2.5 ML NEBU INHALATION SCH ×3 (11:48→20:41)
[2019-08-01] MEDS ORDERED: CEFEPIME 1 GM in SODIUM CHLORIDE 0.9% 50 ML IVPB SCH (12:00)
[2019-08-01] MEDS ORDERED: [UNRECOGNIZED DRUG - OTHER] PO SCH (13:00)
[2019-08-01] MEDS: IOPAMIDOL CONTRAST (ORAL USE) VIAL PO PRN ×2 (14:23→15:31)
--- NOTE | 2019-08-01 14:52 | P.HPIM ---
History of Present Illness H&P Date: 08/01/19 Chief Complaint: weakness, cough and shortness of breath This is a 78-year-old male with a known history of COPD, myelodysplastic disorder and previous bone marrow transplant. His last chemo treatment was in 2017. He also has a history of coronary artery disease. Cardiac stent myocardial infarction, hypertension and rheumatoid arthritis. Patient presents to the emergency room with complaints of general his weakness cough and shortness of breath. Chest x-ray completed showing mild left lower lobe pneumonia EKG had shown sinus rhythm with PACs. Patient was started on vancomycin and cefepime for pneumonia. Pulmonary service has been consulted. Patient also evaluated by oncology due to his cancer history and they have ordered a bone scan of the whole body and computed tomography scan of the chest abdomen and pelvis. Patient had elevated calcium level of 14 and was given pamidronate. Calcium has come down to 13.2. Calcium was normal one year ago. Creatinine was 1.32 on admission down to 1.25. Review of Systems please refer to HPI otherwise unremarkable Past Medical History Past Medical History: Coronary Artery Disease (CAD), Cancer, Hyperlipidemia, Hypertension, Myocardial Infarction ([place]), Pneumonia, Rheumatoid Arthritis ([place]), Skin Disorder Additional Past Medical History / Comment(s): History of mild dysplasia, previous history of asbestos exposure to the [place], previous history of lower lobe pneumonia, COPD, chronic thrombocytopenia, left upper lobe pulmonary nodule noted in a previous CAT scan of the chest measuring 9 mm in size, coronary artery disease with previous stenting of LAD, hyperlipidemia Last Myocardial Infarction Date:: 1995 History of Any Multi-Drug Resistant Organisms: None Reported Past Surgical History: Heart Catheterization, Heart Catheterization With Stent, Tonsillectomy Additional Past Surgical History / Comment(s): Angioplasty 20 years ago, one cardiac stent. BONE MARROW BIOPSY.2017 and 2018 Past Anesthesia/Blood Transfusion Reactions: No Reported Reaction Additional Past Anesthesia/Blood Transfusion Reaction / Comment(s): past blood transfusion-pt denies any reaction to it Date of Last Stent Placement:: 2015 Past Psychological History: No Psychological Hx Reported Smoking Status: Former smoker Past Alcohol Use History: Unable to Obtain Additional Past Alcohol Use History / Comment(s): Quit smoking 2014, 1 - 07 26/2 PPD, smoked since age 22 Past Drug Use History: None Reported - Past Family History Mother Family Medical History: Myocardial Infarction ([place]) Sister(s) Family Medical History: Cancer Father Family Medical History: Cancer Additional Family Medical History / Comment(s): ? lung cancer Medications and Allergies Home Medications Medication Instructions Recorded Confirmed Type Folic Acid 1 mg PO DAILY 01/09/16 07/31/19 History Acyclovir 400 mg PO BID 07/31/19 07/31/19 History Bright Plus Protein 1 tab PO QID 07/31/19 07/31/19 History Multivitamins, Thera [Multivitamin 1 tab PO DAILY@0800 07/31/19 07/31/19 History (formulary)] Spironolactone 25 mg PO DAILY@1000 07/31/19 07/31/19 History Tiotropium 18 Mcg/Puff [Spiriva] 1 puff INHALATION RT-DAILY 07/31/19 07/31/19 History Allergies Allergy/AdvReac Type Severity Reaction Status Date / Time Sulfa (Sulfonamide Allergy tongue Verified 07/31/19 20:37 Antibiotics) swelling Physical Exam Vitals: Vital Signs Temp Pulse Pulse Resp BP BP Pulse Ox 08/01/19 11:57 71 16 08/01/19 11:48 83 16 08/01/19 11:37 97.6 F 67 18 99/62 91 L 08/01/19 08:35 62 18 08/01/19 08:00 96.9 F L 62 18 119/74 93 L 08/01/19 04:00 98 F 68 19 105/55 92 L 07/31/19 23:30 97.8 F 78 18 116/56 90 L 07/31/19 23:13 97.7 F 82 18 98/61 97 07/31/19 21:50 97.5 F L 75 18 112/73 97 07/31/19 20:51 97.8 F 79 18 102/77 96 07/31/19 19:22 97.6 F 91 16 91/61 94 L Intake and Output 07/31/19 08/01/19 08/01/19 22:59 06:59 14:59 Intake Total 120 Output Total 150 Balance -150 120 Intake: Oral 120 Output: Urine 150 Other: Voiding Method Urinal Urinal Weight 65.771 kg 59.1 kg Head normocephalic Neck supple Lungs diminished bilaterally Heart regular rate and rhythm S1-S2, no rub or gallop Abdomen is soft nontender nondistended positive bowel sounds no hepatosplenomegaly Extremities no edema Neuro alert and orientated to 3 Results CBC & Chem 7: 08/01/19 05:56 08/01/19 05:56 Labs: Abnormal Lab Results - Last 24 Hours (Table) 07/31/19 07/31/19 07/31/19 Range/Units 19:45 19:45 19:45 RBC (4.30-5.90) m/uL MCV 103.0 H (80.0-100.0) fL RDW 16.2 H (11.5-15.5) % Plt Count 112 L (150-450) k/uL Chloride 108 H (98-107) mmol/L BUN 52 H (9-20) mg/dL Creatinine 1.32 H (0.66-1.25) mg/dL Glucose 133 H (74-99) mg/dL Plasma Lactic Acid Tripp 2.8 H* (0.7-2.0) mmol/L Calcium 14.0 H* (8.4-10.2) mg/dL Magnesium 2.5 H (1.6-2.3) mg/dL Total Bilirubin 2.5 H (0.2-1.3) mg/dL ALT 60 H (4-49) U/L Alkaline Phosphatase 418 H (38-126) U/L Albumin 2.9 L (3.5-5.0) g/dL Urine Protein (Negative) 07/31/19 08/01/19 08/01/19 Range/Units 21:07 05:56 05:56 RBC 4.23 L (4.30-5.90) m/uL MCV 103.5 H (80.0-100.0) fL RDW 16.1 H (11.5-15.5) % Plt Count 89 L (150-450) k/uL Chloride 112 H (98-107) mmol/L BUN 48 H (9-20) mg/dL Creatinine (0.66-1.25) mg/dL Glucose 104 H (74-99) mg/dL Plasma Lactic Acid Tripp (0.7-2.0) mmol/L Calcium 13.2 H* (8.4-10.2) mg/dL Magnesium (1.6-2.3) mg/dL Total Bilirubin (0.2-1.3) mg/dL ALT (4-49) U/L Alkaline Phosphatase (38-126) U/L Albumin (3.5-5.0) g/dL Urine Protein Trace H (Negative) Thrombosis Risk Factor Assmnt - Choose All That Apply Each Risk Factor Represents 3 Points: Age 75 years or older Thrombosis Risk Factor Assessment Total Risk Factor Score: 3 Thrombosis Risk Factor Assessment Level: Moderate Risk Assessment and Plan Assessment: 1.left lower lobe pneumonia: Check sputum culture. Continue with the vancomycin and cefepime. Pulmonary service on consult 2. Acute COPD exacerbation: continue bronchodilators. Pulmonary following 3. Hypercalcemia: Calcium level 14.4 patient given Pamidronate. Calcium is now 13.2. Patient also had elevated alk phosphatase. Pulmonary ordered a computed tomography scan of the chest abdomen and pelvis for further malignancy workup. Oncology ordered parathyroid hormone level. Patient had a 75 pound weight loss 4. History of myelodysplastic disorder: Oncology following they've ordered a complete body bone scan 5. Chronic thrombocytopenia secondary to his MDS 6. History of coronary artery disease previous cardiac stents 7. Essential hypertension currently on Aldactone 8. History of left upper lobe pulmonary nodule: Followed by pulmonary service. GI prophylaxis Protonix and DVT prophylaxis SCDs Time with Patient: Greater than 30 (Greater than 50% of the total time spent in counseling and coordination of care. I performed an examination of the patient and discussed their management with the physician Beater Worker Helper. I have reviewed the Physician Beater Worker Helper's notes and agree with the documented findings and plan of care)
[2019-08-01 15:50] LABS: Protein, Total 6.3 g/dL (6.2-8.2)
--- NOTE | 2019-08-01 16:45 | CT ---
EXAMINATION TYPE: CT ChestAbdPelvis w con DATE OF EXAM: 08/01/2019 INDICATION: Observe for mets. COMPARISON: 07/26/2018 CT DLP: 1152 mGycm CONTRAST: Performed with Oral Contrast and with IV Contrast, patient injected with 80ml mL of Isovue 300. TECHNIQUE: Axial images at 5 mm thick sections. Reconstructed images in the coronal plane. Delayed images through the kidneys. FINDINGS: CT CHEST: Portion of the thyroid visualized is normal. There is a small right and minimal left pleural effusion. Emphysematous changes are present. There ma y be some pulmonary fibrosis at lung the major fissures within the mid to lower lung plasencia bilateral ly. Some minimal compressive atelectasis is likely present at the lung bases adjacent pleural effusio ns. Small density which could be related atelectasis or nodules in the posterior left lower lung kimberlyn uring 0.9 years. Series 3 No enlarged mediastinal or hilar adenopathy is evident. The ascending aorta diameter at the level of the main pulmonary artery is 4.4 cm. The main pulmonary artery diameter at the bifurcation is 2.8 cm. Coronary artery calcification is present. CT ABDOMEN: Liver: Multiple large hepatic cysts appear to be present. Spleen: Normal Pancreas: Normal Adrenal glands: The adrenal glands are normal. Gallbladder: Normal Kidneys: No masses are evident. No hydronephrosis is present. There is a 4.8 cm cyst on the posteri or left kidney measuring 6 Hounsfield units. Delayed images were obtained through the kidneys, which remain unremarkable. Aorta: Vascular calcification is within the aorta. There is dilatation of the distal abdominal aorta measuring 3.0 cm AP. The proximal iliac vessels are prominent measuring 2.1 cm on the left common il iac and 2.0 cm on the right common iliac. Inferior vena cava: Normal. CT PELVIS: Loops of bowel within the abdomen and pelvis are normal. Diverticular changes are within the sigmo id colon. No acute diverticulitis is evident. There are loops of bowel which are incompletely distend ed or lack oral contrast limiting their evaluation. Appendix: Normal as visualized. Urinary bladder: Normal. Genitourinary structures: Prostate is unremarkable Osseous structures: No suspicious lytic or sclerotic lesions. IMPRESSIONS: 1. Hepatic and renal cysts. 2. Fusiform prominence distal abdominal aorta and proximal common iliac vessels. 3. Diverticulosis without acute diverticulitis. 4. Suspected pulmonary fibrosis along the major fissures within the mid to lower lung plasencia, develop ing from July 2018. 5. 0.9 cm density posterior left lung is nonspecific related to a nodule or atelectasis. Follow-up is recommended in 3 months. 6. Small bilateral pleural effusions
--- NOTE | 2019-08-01 17:12 | NM ---
EXAMINATION TYPE: NM bone scan whole body DATE OF EXAM: 08/01/2019 COMPARISON: NONE HISTORY: Left lower lobe mass Delayed whole-body scanning was performed following the injection of 24.7 mCi Tc 99m MDP. Images acq uired 6 hours post injection. FINDINGS: There is focal increased uptake in the region of the greater trochanter of the left femur. There is i ncreased uptake at both shoulder joints and both AC joints. Uptake in the spine is fairly normal. The remainder of exam is unremarkable. IMPRESSION: Increased uptake in both shoulders is consistent with arthritic disease. There is increased asymmetric uptake in the greater trochanter of the left femur. The CT scan of toda y of the pelvis is reviewed and there is cortical irregularity on the superior aspect of the greater trochanter suggestive of a nondisplaced chip fracture. It is not clear if this is a pathologic fractu re. This could be stress fracture or traumatic fracture or could relate to metastatic disease. There is no discrete destructive or blastic process seen in this area to suggest metastatic disease however .
[2019-08-01] MEDS: ACYCLOVIR 200 MG CAP PO SCH (21:07)
--- NOTE | 2019-08-01 21:58 | P.CONS ---
History of Present Illness - Reason for Consult Consult date: 08/01/19 MDS s/p allo SCT, hypercalcemia - History of Present Illness Mr Whitehead is a 78 yr old WM, who was noted to have a Hgb of 11.4 in 04/10. WBC was 3.6. The pt was on Methotrexate at the time for some kind of inflammatory arthritis, over the prior 3-4 years. In 08/11, Hgb was 9.7, with WBC of 3.4. Methotrexate was stopped around that time. The pt was asked to take PO iron OTC. On 09/28/16, Hgb was 9.8, and WBC 3.3. The pt was thus referred here for further evaluation and recommendations. Cytopenia labs were negative. He was seen in consult at [facility] , when admitted with melena in early 12/09. 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 He had a bone marrrow during that admission, revealing MDS, with 4.8 % blasts He was started on Dacogen in 12/09 and had s/p 5 cycles. Chemo was held after #5 due to persistently low counts. He received 1 U PRBC on 04/23/17. Repeat bone marrow in 05/11 showed no change. Chemo was therefore stopped and it was decided to follow with monitoring, as his counts were in a safe range. His Hgb dropped to 5.6 on 06/21/17. He received 2 U PRBC. EGD on 06/23/17 was negative. Iron levels were reduced, indicating that this drop was due to blood loss. He received IV iron in late - early 07/11, and then again in -07/12. His WBC showed a progressive decline subsequently, leading to a bone marrow on 04/04/18. This showed again showed dysplastic changes, with blast % now 8-9 %. Cytogenetics and FISH were negative. He was referred to [facility]. Optiosn were felt to be limited and included supportive care, trial of Vidaza as well as BMT evaluation. After discussion, the pt agreed for a BMT consultation. He was evaluated by them, and underwent matched unrelated donor SCT in 09/13.. postprocedure marrow showed complete response, with no evidence of disease and normal fish and cytogenetics. He had an admission for pneumonia about a mth after d/c. Otherwise , he has done well, with no GVH issues per him. He was last seen in the office in 07/13, and at the [facility] on 07/28/19 Since his visit at the [facility], the pt developed some chest congestion, and cough productive of greenish sputum. He also developed progressive weakness, and decrease in appetite leading him to present to the ER. CXR showed a new , mild LLL. Labs showed a Ca ++ of 14-15 , which is new for him. He was thus admitted for further management He denied any diarrhea, f/c/diuretic use. No h/o Ca ++ supplements. Review of Systems Constitutional: Reports fatigue, Reports poor appetite, Reports weakness Eyes: denies blurred vision, denies pain Ears: deny: decreased hearing, ear discharge, earache, tinnitus Ears, nose, mouth and throat: Denies headache, Denies sore throat Cardiovascular: Reports decreased exercise tolerance Respiratory: Reports cough with sputum, Reports dyspnea Gastrointestinal: Denies abdominal pain, Denies diarrhea, Denies nausea, Denies vomiting Genitourinary: Reports as per HPI Musculoskeletal: Reports as per HPI, Reports muscle weakness Integumentary: Denies pruritus, Denies rash Neurological: Reports weakness Psychiatric: Denies anxiety, Denies depression Endocrine: Reports fatigue Hematologic/Lymphatic: Reports as per HPI Past Medical History Past Medical History: Coronary Artery Disease (CAD), Cancer, Hyperlipidemia, Hypertension, Myocardial Infarction (DE), Pneumonia, Rheumatoid Arthritis (RA), Skin Disorder Additional Past Medical History / Comment(s): History of mild dysplasia, previous history of asbestos exposure to the [place], previous history of lower lobe pneumonia, COPD, chronic thrombocytopenia, left upper lobe pulmonary nodule noted in a previous CAT scan of the chest measuring 9 mm in size, coronary artery disease with previous stenting of LAD, hyperlipidemia Last Myocardial Infarction Date:: 1995 History of Any Multi-Drug Resistant Organisms: None Reported Past Surgical History: Heart Catheterization, Heart Catheterization With Stent, Tonsillectomy Additional Past Surgical History / Comment(s): Angioplasty 20 years ago, one cardiac stent. BONE MARROW BIOPSY.2017 and 2018 Past Anesthesia/Blood Transfusion Reactions: No Reported Reaction Additional Past Anesthesia/Blood Transfusion Reaction / Comm: past blood transfusion-pt denies any reaction to it Date of Last Stent Placement:: 2015 Past Psychological History: No Psychological Hx Reported Smoking Status: Former smoker Past Alcohol Use History: Unable to Obtain Additional Past Alcohol Use History / Comment(s): Quit smoking 2015, 1 - 1 1/ PPD, smoked since age 22 Past Drug Use History: None Reported - Past Family History Mother Family Medical History: Myocardial Infarction ([place]) Sister(s) Family Medical History: Cancer Father Family Medical History: Cancer Additional Family Medical History / Comment(s): ? lung cancer Medications and Allergies Home Medications Medication Instructions Recorded Confirmed Type Folic Acid 1 mg PO DAILY 01/09/16 07/31/19 History Acyclovir 400 mg PO BID 07/31/19 07/31/19 History Bright Plus Protein 1 tab PO QID 07/31/19 07/31/19 History Multivitamins, Thera [Multivitamin 1 tab PO DAILY@0800 07/31/19 07/31/19 History (formulary)] Spironolactone 25 mg PO DAILY@1000 07/31/19 07/31/19 History Tiotropium 18 Mcg/Puff [Spiriva] 1 puff INHALATION RT-DAILY 07/31/19 07/31/19 History Allergies Allergy/AdvReac Type Severity Reaction Status Date / Time Sulfa (Sulfonamide Allergy tongue Verified 07/31/19 20:37 Antibiotics) swelling Physical Exam Vitals: Vital Signs Temp Pulse Pulse Resp BP BP Pulse Ox 08/01/19 20:58 75 08/01/19 20:42 75 94 L 08/01/19 15:36 97.3 F L 70 18 119/61 95 08/01/19 11:57 71 16 08/01/19 11:48 83 16 08/01/19 11:37 97.6 F 67 18 99/62 91 L 08/01/19 08:35 62 18 08/01/19 08:00 96.9 F L 62 18 119/74 93 L 08/01/19 04:00 98 F 68 19 105/55 92 L 07/31/19 23:30 97.8 F 78 18 116/56 90 L 07/31/19 23:13 97.7 F 82 18 98/61 97 07/31/19 21:50 97.5 F L 75 18 112/73 97 Intake and Output 08/01/19 08/01/19 08/01/19 06:59 14:59 22:59 Intake Total 1190 Output Total 150 350 200 Balance -150 840 -200 Intake: Intake, IV Titration 350 Amount Cefepime 1 gm In Sodium 100 Chloride 0.9% 50 ml @ 100 mls/hr IVPB DAILY [facility] Rx #:[id number] Vancomycin 1,250 mg In 250 Sodium Chloride 0.9% 250 ml @ 125 mls/hr IVPB Q16H [facility] Rx#:[id number] Oral 840 Output: Urine 150 350 200 Other: Voiding Method Urinal Urinal Weight 59.1 kg - Constitutional General appearance: no acute distress - EENT Eyes: EOMI, PERRLA ENT: hearing grossly normal, normal oropharynx - Neck Neck: lymphadenopathy Thyroid: bilateral: normal size - Respiratory Respiratory: bilateral: CTA - Cardiovascular Rhythm: regular Heart sounds: normal: S1, S2 - Gastrointestinal General gastrointestinal: normal bowel sounds, soft - Integumentary Integumentary: normal - Neurologic Neurologic: CNII-XII intact - Musculoskeletal Musculoskeletal: generalized weakness, strength equal bilaterally - Psychiatric Psychiatric: A&O x's 3, appropriate affect Results CBC & Chem 7: 08/01/19 05:56 08/01/19 05:56 Labs: Abnormal Lab Results - Last 24 Hours (Table) 08/01/19 08/01/19 Range/Units 05:56 05:56 RBC 4.23 L (4.30-5.90) m/uL MCV 103.5 H (80.0-100.0) fL RDW 16.1 H (11.5-15.5) % Plt Count 89 L (150-450) k/uL Chloride 112 H (98-107) mmol/L BUN 48 H (9-20) mg/dL Glucose 104 H (74-99) mg/dL Calcium 13.2 H* (8.4-10.2) mg/dL Chest x-ray: report reviewed Assessment and Plan (1) Hypercalcemia Narrative/Plan: This is very marked, and likely responsible for at least a component of his presentation. This is a new finding and etiology is not immediately apparent based on H &P. W/U will be ordered , with protein electrophoresis studies, PTH level and bone scan. CT CAP will also be checked to r/o an occult mass, especially in the lung - COntinue IV hydration - IV bisphosphonate - Monitor Ca ++ levels Current Visit: Yes Status: Acute Code(s): E83.52 - HYPERCALCEMIA SNOMED Code(s): 43325645 (2) MDS (myelodysplastic syndrome) Narrative/Plan: Diagnostic and therapeutic circumstances as noted. The pt has done well post transplant, with no evidence of GVH. He has not needed immunosuppression since the past several months. Hgb and WBC are normal. Plt are 84, but have been mildly low since the transplant. Thus at this time, there is no evidence of relapse. Clinically, there is no evidence of GVH. He is on regular f/u with Dean [facility]SS[facility] Current Visit: No Status: Acute Priority: High Code(s): D46.9 - MYELODYSPLASTIC SYNDROME, UNSPECIFIED SNOMED Code(s): 344064563 (3) CAP (community acquired pneumonia) Narrative/Plan: Reasonable assumption, based on symptoms and CXR. On antibiotic per the admitting service Current Visit: No Status: Acute Code(s): J18.9 - PNEUMONIA, UNSPECIFIED ORGANISM SNOMED Code(s): 906088966 Plan: Defer to the admitting service and other consultants for management of his other medical problems
[2019-08-02] MEDS: VANCOMYCIN 1,250 MG in SODIUM CHLORIDE 0.9% 250 ML IVPB SCH (03:30)
[2019-08-02] MEDS ORDERED: PANTOPRAZOLE 40 MG TABLET PO SCH (07:30)
[2019-08-02] MEDS ORDERED: MULTIVITAMINS, THERA 1 EACH TAB PO SCH (08:00)
[2019-08-02] MEDS: IPRATROPIUM 0.5 MG/2.5 ML NEBU INHALATION SCH ×2 (08:35→11:40)
[2019-08-02 08:45] LABS: Anisocytosis Slight; Basophils # (A) 0.1 k/uL (0-0.2); Basophils % (A) 1 %; Eosinophils # (A) 0.1 k/uL (0-0.7); Eosinophils % (A) 1 %; HCT 45.3 % (39.0-53.0); HGB 14.1 gm/dL (13.0-17.5); Lymphocytes # (A) 0.9 k/uL (1.0-4.8); Lymphocytes % (A) 13 %; MCH 32.2 pg (25.0-35.0); MCHC 31.1 g/dL (31.0-37.0); MCV 103.4 fL (80.0-100.0); Macrocytosis Moderate; Mean Platelet Volume 10.4; Monocytes # (A) 0.5 k/uL (0-1.0); Monocytes % (A) 7 %; Neutrophils # (A) 5.2 k/uL (1.3-7.7); Neutrophils % (A) 75 %; RBC 4.38 m/uL (4.30-5.90); RDW 16.6 % (11.5-15.5)
[2019-08-02 08:49] LABS: Platelet Count 79 k/uL (150-450)
[2019-08-02 08:53] LABS: Albumin 2.2 g/dL (3.5-5.0); Potassium 3.8 mmol/L (3.5-5.1); Total Bilirubin 2.7 mg/dL (0.2-1.3); Total Protein 6.5 g/dL (6.3-8.2)
[2019-08-02] MEDS ORDERED: CEFEPIME 1 GM in SODIUM CHLORIDE 0.9% 50 ML IVPB SCH (09:00)
[2019-08-02] MEDS: FOLIC ACID 1 MG TAB PO SCH (09:19)
[2019-08-02] MEDS: ACYCLOVIR 200 MG CAP PO SCH (09:19)
[2019-08-02 09:30] VITALS: RESP 18
[2019-08-02] MEDS: SODIUM CHLORIDE 0.9% 1,000 ML IV SCH ×3 (09:35→11:45)
[2019-08-02] MEDS: SPIRONOLACTONE 25 MG TAB PO SCH (11:42)
[2019-08-02 11:52] VITALS: BP 107/73; TEMP 98.2
[2019-08-02 11:53] VITALS: PULSE 80
--- NOTE | 2019-08-02 12:22 | P.PN ---
Subjective Progress Note Date: 08/02/19 This is a 78-year-old male with a known history of COPD, myelodysplastic disorder and previous bone marrow transplant. His last chemo treatment was in 2017. He also has a history of coronary artery disease. Cardiac stent myocardial infarction, hypertension and rheumatoid arthritis. Patient presents to the emergency room with complaints of general his weakness cough and shortness of breath. Chest x-ray completed showing mild left lower lobe pneumonia EKG had shown sinus rhythm with PACs. Patient was started on vancomycin and cefepime for pneumonia. Pulmonary service has been consulted. Patient also evaluated by oncology due to his cancer history and they have ordered a bone scan of the whole body and computed tomography scan of the chest abdomen and pelvis. Patient had elevated calcium level of 14 and was given pamidronate. Calcium has come down to 13.2. Calcium was normal one year ago. Creatinine was 1.32 on admission down to 1.25. On 08/02/2019 patient is alert and oriented resting comfortably in bed. Per oncology services transferred to [facility] has been initiated. Dr. alexander discussed case with Dr. Arias with the bone marrow transplant team at [facility]. Modified barium swallow has been ordered per speech recommendation. Calcium remains high at 13.0. Oncology and pulmonary services are following. Patient remains on Maxipime and vancomycin Objective - Vital Signs Vital signs: Vital Signs Temp 98.2 F 08/02/19 11:50 Pulse 80 08/02/19 11:52 Resp 18 08/02/19 11:50 BP 107/73 08/02/19 11:50 Pulse Ox 94 L 08/02/19 11:50 Intake & Output 08/01/19 08/02/19 08/02/19 18:59 06:59 18:59 Intake Total 1190 Output Total 550 400 200 Balance 640 -400 -200 Weight 69 kg Intake: Intake, IV Titration 350 Amount Cefepime 1 gm In Sodium 100 Chloride 0.9% 50 ml @ 100 mls/hr IVPB DAILY [facility] Rx #:[id number] Vancomycin 1,250 mg In 250 Sodium Chloride 0.9% 250 ml @ 125 mls/hr IVPB Q16H [facility] Rx#:[id number] Oral 840 Output: Urine 550 400 200 Other: Voiding Method Urinal Urinal Urinal # Voids 1 - Exam Head normocephalic Neck supple Lungs diminished bilaterally Heart regular rate and rhythm S1-S2, no rub or gallop Abdomen is soft nontender nondistended positive bowel sounds no hepatosplenomegaly Extremities no edema Neuro alert and orientated to 3 - Labs CBC & Chem 7: 08/02/19 06:09 08/02/19 06:09 Labs: Abnormal Lab Results - Last 24 Hours (Table) 08/02/19 08/02/19 Range/Units 06:09 06:09 MCV 103.4 H (80.0-100.0) fL RDW 16.6 H (11.5-15.5) % Plt Count 79 L (150-450) k/uL Lymphocytes # 0.9 L (1.0-4.8) k/uL Chloride 114 H (98-107) mmol/L BUN 41 H (9-20) mg/dL Calcium 13.0 H (8.4-10.2) mg/dL Total Bilirubin 2.7 H (0.2-1.3) mg/dL Alkaline Phosphatase 302 H (38-126) U/L Albumin 2.2 L (3.5-5.0) g/dL Microbiology - Last 24 Hours (Table) 07/31/19 21:32 Blood Culture - Preliminary Blood No Growth after 24 hours Assessment and Plan Assessment: .left lower lobe pneumonia: Check sputum culture. Continue with the vancomycin and cefepime. Pulmonary service on consult 2. Acute COPD exacerbation: continue bronchodilators. Pulmonary following 3. Hypercalcemia: Calcium level 14.4 patient given Pamidronate. Calcium is now 13.2. Patient also had elevated alk phosphatase. Pulmonary ordered a computed tomography scan of the chest abdomen and pelvis for further malignancy workup. Oncology ordered parathyroid hormone level. Patient had a 75 pound weight loss. Oncology service is following. Transfer to [facility] has been initiated 4. History of myelodysplastic disorder: Oncology following they've ordered a complete body bone scan 5. Chronic thrombocytopenia secondary to his MDS 6. History of coronary artery disease previous cardiac stents 7. Essential hypertension currently on Aldactone 8. History of left upper lobe pulmonary nodule: Followed by pulmonary service. GI prophylaxis Protonix and DVT prophylaxis SCDs Per oncology services transfer to [facility] has been initiated. Dr. alexander discussed case with Dr. Arias with the bone marrow transplant team at [facility]. Case management aware
--- NOTE | 2019-08-02 13:36 | FL ---
EXAMINATION TYPE: FL barium swallow w video DATE OF EXAM: 08/02/2019 COMPARISON: NONE HISTORY: Pneumonia TECHNIQUE: Fluoroscopy. FINDINGS: Fluoroscopic guidance was provided for the procedure performed in conjunction with the [facility] pathology department. Please see complete report forthcoming from the Speech Pathology departmen t. Various consistencies from thin liquid to solids were administered. Fluoroscopy time 240 seconds. Number of images: 0. Intimal Aspiration occurred with thin, nectar thick, honey thick and a small amount of puree. The thi ck and thin consistencies were spontaneously cleared by the patient. Significant pooling with residuals are through the vallecula There is marked delay of bolus formation and transit to the hypopharynx. IMPRESSION: 1. Aspiration outlined above. Please see complete report forthcoming from the speech pathology depart ment. 2. Significant residuals within the vallecula. 3. Delayed swallowing
[2019-08-03] MEDS ORDERED: VANCOMYCIN TROUGH DUE 1 EACH MISC MISCELLANE ONE (11:00)
[2019-08-03 12:03] LABS: Gamma Globulin 2.58 g/dL (0.70-1.50)
== END 2019-08-02 14:51 | disposition short-term general hospital (02) | DRG 194 ==
LOC: EC 19:05 → 3SCARD 21:18
PROVIDERS: ADMIT Internal Medicine; ATTEND Internal Medicine
DX: J18.9 Pneumonia, unspecified organism (principal); R64 Cachexia; E87.2 Acidosis; Z94.81 Bone marrow transplant status; J44.0 Chronic obstructive pulmonary disease with (acute) lower respiratory infection; J44.1 Chronic obstructive pulmonary disease with (acute) exacerbation; C90.00 Multiple myeloma not having achieved remission; D69.59 Other secondary thrombocytopenia; K76.89 Other specified diseases of liver; E83.52 Hypercalcemia; E78.5 Hyperlipidemia, unspecified; I10 Essential (primary) hypertension; R91.1 Solitary pulmonary nodule; M06.9 Rheumatoid arthritis, unspecified; I25.10 Atherosclerotic heart disease of native coronary artery without angina pectoris; I25.2 Old myocardial infarction; Z68.21 Body mass index [BMI] 21.0-21.9, adult; Z79.899 Other long term (current) drug therapy; Z77.090 Contact with and (suspected) exposure to asbestos; Z92.21 Personal history of antineoplastic chemotherapy; Z87.01 Personal history of pneumonia (recurrent); Z95.5 Presence of coronary angioplasty implant and graft; Z87.891 Personal history of nicotine dependence; Z87.2 Personal history of diseases of the skin and subcutaneous tissue; Z88.2 Allergy status to sulfonamides; Z82.49 Family history of ischemic heart disease and other diseases of the circulatory system; Z80.1 Family history of malignant neoplasm of trachea, bronchus and lung
CPT/HCPCS: 36415; 71046; 71260; 74177; 74230; 78306; 80048; 80053; 81003; 83605; 83735; 83880; 83883; 83970; 84165; 84484; 85025; 85027; 85610; 85730; 86334; 87040; 93005; 94640; 94760; 96361; 96365; 96367; 99285